=== PATIENT | female | born 1990 | race Caucasian/White ===

== ENCOUNTER → 2022-02-25 | Outpatient (CLI) | payer OTHER, SELFPAY ==
[2022-02-25 17:15] LABS: NATERA MAILED SPECIMEN
[2022-02-25 17:19] LABS: Absolute Lymphocyte Count 2.97 X10^3/uL (0.83-4.51); Absolute Neutrophil Count 6.8 X10^3/uL (2.0-7.7); Basophil# 0.04 X10^3/uL; Basophil% 0.4 % (0-1); Eosinophil# 0.15 X10^3/uL; Eosinophils% 1.4 % (0-5); Hematocrit 36.3 % (37-47); Hemoglobin 12.3 g/dL (12.0-15.0); Lymphocyte # 2.97 X10^3/ul (0.83-4.51); Lymphocyte % 28.2 % (19-41); Mean Corp Hgb Conc 33.9 g/dL (32-36); Mean Corpuscular Hgb 30.3 pg (27.0-32.0); Mean Corpuscular Volume 89.4 fL (81-99); Monocyte# 0.56 X10^3/uL; Monocyte% 5.3 % (0-10); NRBC Flagged by Analyzer 0 % (0-5); Neutrophil # 6.79 X10^3/uL (2.7-7.7); Neutrophil % 64.4 % (47-70); Platelet Count 352 K/mm3 (150-450); RBC Distribution Width CV 12.6 % (11.6-14.6); RBC Distribution Width SD 41.4 fl (35.1-43.9); Red Blood Count 4.06 M/mm3 (4.2-5.4); White Blood Count 10.5 K/mm3 (4.4-11.0)
[2022-02-25 18:41] LABS: HIV - WCH Non-Reactive (Nonreactive); Hepatitis B Surface Antigen Non-Reactive (Nonreactive); Hepatitis C Antibody Non-Reactive (Nonreactive); Rubella IgG Reactive (Nonreactive); Syphilis Antibodies Non-reactive
[2022-03-01 03:06] LABS: Chlamydia By Nucleic Acid AMP Negative (Negative)
[2022-03-01 12:44] LABS: Gonococcus By Nucleic Acid AMP Negative (Negative)
== END | disposition home or self-care (01) ==
PROVIDERS: PCP Student in an Organized Health Care Education/Training Program; Referring Provider Obstetrics & Gynecology; Visit Provider Obstetrics & Gynecology
DX: Z34.82 Encounter for supervision of other normal pregnancy, second trimester (principal)
CPT/HCPCS: 36415; 85025; 86703; 86762; 86780; 86803; 86850; 86900; 86901; 87086; 87088; 87340; 87491; 87591

== ENCOUNTER → 2022-03-18 | Outpatient (CLI) | payer OTHER, SELFPAY ==
[2022-03-18 16:30] LABS: Glucose Challenge Gest 1H 50g 178 mg/dL (70-140)
== END | disposition home or self-care (01) ==
LOC: LAB 15:56
PROVIDERS: PCP Student in an Organized Health Care Education/Training Program; Visit Provider Obstetrics & Gynecology
DX: O99.210 Obesity complicating pregnancy, unspecified trimester (principal)
CPT/HCPCS: 36415; 82950

== ENCOUNTER → 2022-05-21 | Outpatient (CLI) | payer OTHER, SELFPAY ==
[2022-05-21 07:45] LABS: Absolute Lymphocyte Count 2.67 X10^3/uL (0.83-4.51); Absolute Neutrophil Count 5.1 X10^3/uL (2.0-7.7); Basophil# 0.03 X10^3/uL; Basophil% 0.3 % (0-1); Eosinophil# 0.18 X10^3/uL; Eosinophils% 2.1 % (0-5); Hematocrit 35.2 % (37-47); Hemoglobin 11.7 g/dL (12.0-15.0); Lymphocyte # 2.67 X10^3/ul (0.83-4.51); Lymphocyte % 30.9 % (19-41); Mean Corp Hgb Conc 33.2 g/dL (32-36); Mean Corpuscular Hgb 30.6 pg (27.0-32.0); Mean Corpuscular Volume 92.1 fL (81-99); Mean Platelet Vol. 10.4 fl (6.2-12.0); Monocyte% 6.9 % (0-10); NRBC Flagged by Analyzer 0 % (0-5); Neutrophil # 5.12 X10^3/uL (2.7-7.7); Neutrophil % 59.3 % (47-70); Platelet Count 292 K/mm3 (150-450); Red Blood Count 3.82 M/mm3 (4.2-5.4); White Blood Count 8.6 K/mm3 (4.4-11.0)
[2022-05-21 08:06] LABS: Glucose Challenge Gest 1H 50g 148 mg/dL (70-140)
[2022-05-21 11:11] LABS: HIV - WCH Non-Reactive (Nonreactive); Syphilis Antibodies Non-reactive
== END | disposition home or self-care (01) ==
PROVIDERS: PCP Student in an Organized Health Care Education/Training Program; Referring Provider Obstetrics & Gynecology; Visit Provider Obstetrics & Gynecology
DX: O09.90 Supervision of high risk pregnancy, unspecified, unspecified trimester (principal); Z3A.00 Weeks of gestation of pregnancy not specified
CPT/HCPCS: 36415; 82950; 85025; 86703; 86780

== ENCOUNTER → 2022-08-04 | Outpatient (CLI) | payer OTHER, SELFPAY ==
[2022-08-04 11:23] LABS: Protein, Urine (Random) 106.8 mg/dL (<11.9); Protein:Creat Ratio 1695 mg/g CRE (0-200)
[2022-08-04 12:34] LABS: Absolute Lymphocyte Count 2.64 X10^3/uL (0.83-4.51); Absolute Neutrophil Count 6.8 X10^3/uL (2.0-7.7); Basophil# 0.03 X10^3/uL; Basophil% 0.3 % (0-1); Eosinophil# 0.15 X10^3/uL; Eosinophils% 1.4 % (0-5); Hematocrit 33.8 % (37-47); Hemoglobin 11.1 g/dL (12.0-15.0); Lymphocyte # 2.64 X10^3/ul (0.83-4.51); Lymphocyte % 25.2 % (19-41); Mean Corp Hgb Conc 32.8 g/dL (32-36); Mean Corpuscular Hgb 29.2 pg (27.0-32.0); Mean Corpuscular Volume 88.9 fL (81-99); Mean Platelet Vol. 11.1 fl (6.2-12.0); Monocyte# 0.78 X10^3/uL; Monocyte% 7.4 % (0-10); NRBC Flagged by Analyzer 0 % (0-5); Neutrophil # 6.77 X10^3/uL (2.7-7.7); Neutrophil % 64.6 % (47-70); Platelet Count 298 K/mm3 (150-450); RBC Distribution Width CV 12.9 % (11.6-14.6); RBC Distribution Width SD 41.5 fl (35.1-43.9); White Blood Count 10.5 K/mm3 (4.4-11.0)
[2022-08-04 13:13] LABS: ALB/GLOB Ratio 0.5 RATIO (0.9-2.4); AST(SGOT) 20 U/L (15-37); Alanine Aminotransfer ALT/SGPT 16 U/L (13-56); Albumin, Serum 2.2 g/dL (3.2-5.0); Alkaline Phosphatase 201 U/L (45-117); Anion Gap 8 (5-15); BUN 5 mg/dL (7-18); BUN/Creat Ratio 10.9 RATIO (10-20); Chloride 110 mmol/L (98-107); Creatinine, Serum 0.46 mg/dL (0.55-1.02); EST Glomerular Filtration Rate 169 mL/min (>60); Est Glom Filt Rate - Afr Amer 204 mL/min (>60); Globulin 4.3 g/dL (2.2-4.2); Glucose 76 mg/dL (74-106); Potassium 3.7 mmol/L (3.5-5.1); Protein, Total 6.5 g/dL (6.4-8.2); Sodium Level 138 mmol/L (136-145)
== END | disposition home or self-care (01) ==
LOC: LABSPEC 11:05 → LAB 11:38
PROVIDERS: PCP Student in an Organized Health Care Education/Training Program; Referring Provider Obstetrics & Gynecology; Visit Provider Obstetrics & Gynecology
DX: O12.10 Gestational proteinuria, unspecified trimester (principal); Z3A.00 Weeks of gestation of pregnancy not specified
CPT/HCPCS: 36415; 80053; 82570; 84156; 85025

== ENCOUNTER 2022-08-06 12:10 | Outpatient (CLI) | payer OTHER, SELFPAY ==
[2022-08-06] VITALS (11 sets, daily range): BP systolic 134–158; BP diastolic 77–94; PULSE 76–96; TEMP 36.7; O2SAT 100
[2022-08-06] MEDS: Betamethasone/Betamethasone 30 MG/5 ML Vial 12 MG IM (13:43)
[2022-08-06] MEDS: Acetaminophen 500 MG Tablet 1000 MG PO (13:43)
[2022-08-06 13:48] LABS: Hematocrit 32.9 % (37-47); Hemoglobin 10.7 g/dL (12.0-15.0); Mean Corp Hgb Conc 32.5 g/dL (32-36); Mean Corpuscular Hgb 28.6 pg (27.0-32.0); Mean Platelet Vol. 11.1 fl (6.2-12.0); Platelet Count 303 K/mm3 (150-450); RBC Distribution Width CV 12.8 % (11.6-14.6); RBC Distribution Width SD 40.8 fl (35.1-43.9); Red Blood Count 3.74 M/mm3 (4.2-5.4); White Blood Count 9.9 K/mm3 (4.4-11.0)
[2022-08-06 14:04] LABS: AST(SGOT) 18 U/L (15-37); Alanine Aminotransfer ALT/SGPT 15 U/L (13-56); Creatinine, Serum 0.42 mg/dL (0.55-1.02); EST Glomerular Filtration Rate 186 mL/min (>60); Est Glom Filt Rate - Afr Amer 225 mL/min (>60); Protein, Urine (Random) 18.8 mg/dL (<11.9); Protein:Creat Ratio 1353 mg/g CRE (0-200); Uric Acid 5.4 mg/dL (2.6-6.0)
--- NOTE | 2022-08-06 15:19 | OB.TRI.HP_ITS ---
HPI - General HPI Narrative CHRISTA GARCIA, is a 31 y/o @ 35 weeks 4 days who presents to L&D with the complaint of a mild headache (2/10) and bp at home of 154/115. She has known diagnosis of mild pre-eclampsia. She denies abdominal pain or change in vision. her bp's here are averaging 140's/80's and since resting here for an hour states that headache is gone. Maternal Data Information REAL Calculator Estimated Delivery Date Method Current WG Current Estimate 09/06/22 Ultrasound #1 35w 4d Other Estimates 09/15/22 LMP (Certain) 34w 2d PFSH PFSH Medical History Abscess of left thigh Home Medications escitalopram oxalate 10 mg tablet (Lexapro) 10 mg PO DAILY 02/11/22 [History Last Taken Unknown] omeprazole 20 mg capsule,delayed release 20 mg PO DAILY 02/11/22 [History Last Taken Unknown] vitamins no.163-iron bis-gly 20 mg-folate no.10 1 mg tablet (PNV Tabs 20-1) tab PO 02/11/22 [History Last Taken Unknown] amoxicillin 500 mg capsule 500 mg PO BID #14 caps 07/14/22 [Rx Last Taken Unknown] fluticasone propionate 50 mcg/actuation nasal spray,suspension (Flonase Allergy Relief) 2 spray intranasal DAILY #16 grams 07/14/22 [Rx Last Taken Unknown] Allergy/AdvReac Type Severity Reaction Status Date / Time No Known Allergies Allergy Verified 08/04/22 10:36 Family History Mother Breast cancer, Onset Age: 61 Not genetic Grandmother Breast cancer, Onset Age: 65 Maternal Surgical History History of removal of cyst Hx of wisdom tooth extraction Social History adopted: No household members: spouse and children housing: house number of children: 1 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 occupational exposures/hazards: No pets and animals: Yes (Not managing litterbox) pets and animals: cat(s) history of recent travel: No sexually active: Yes Smoking Status: Never smoker alcohol intake: former details: socially prior to substance use type: does not use well-balanced diet: daily or most days caffeine: No eating out: 1-3 times/week during the past year weight has: decreased > 10 lbs what type of physical activity do you participate in: none juan/roman catholic: Non-Anabaptist/Independent seatbelt use: always do you feel safe at home: Yes additional social history: - Lyle Marie History 2 Elective abortions Hx Para 1 Spontaneous abortions Hx # Term Pregnancies Ectopic pregnancies Hx # Pregnancies Multiple births # of living children 1 Past Pregnancies Del. Date Name GA/Weeks Outcome Route Bth Weight Gen Labor Lgth Anesthesia Del Locatn Provider FOB 03/25/20 Leticia 39 live - full term 7#4oz Female 18 hours epidural [facility] Delivery Date: 03/25/20 Last Updated by: Pina Green emergency cs, decels Visit Details Expected Delivery Route/Plan patient counseled regarding risks/benefits of trial of labor versus repeat . ACOG/uptodate education given to patient. 42 % likelihood of success per calculator TOLAC consent form signed: [] pt still deciding based on low percentile. may want repeat cd Plans Covid status: [] Flu vaccine: [] Tdap vaccine: [] Rhogam: [] LARC form signed: [] Problem list reviewed and updated with the most current plan of care details and appropriate orders placed. Relevant counseling for the gestational age provided. Continue routine care and follow up unless otherwise noted in visit notes/problem list details OB Flowsheet Initial Weight: Not Recorded Date -?-?-?-?-?-?-?-?-?-?-?-?- EGA Weight BP Urine Prot -?-?-?-?-?-?-?-?-?-?-?-?- Glucose FHR FuHt Pres Dilation -?-?-?-?-?-?-?-?-?-?-?-?- Effaced St Visit Note 02/25/22 -?-?-?-?-?-?-?-?-?-?-?-?- 12w 3d 242 lb 8 oz 134/88 -?-?-?-?-?-?-?-?-?-?-?-?- 163 -?-?-?-?-?-?-?-?-?-?-?-?- JV- single live iup measuring 12 weeks 3 days. new real of 09/06/22 given. 03/26/22 -?-?-?-?-?-?-?-?-?-?-?-?- 16w 4d 244 lb 8 oz 135/81 Nega tive -?-?-?-?-?-?-?-?-?-?-?-?- Negative 155 -?-?-?-?--?-?-?-?-?-?-?-?- JV- JV- pt is worried about david ng the 3 hr gtt and knows that she is insulin resistance due to metabolic syndrome. she sees her endo on Tuesday. her GCT was 178 and close to overt dm. plan to start monitoring glucose levels and cancel the GTT. umbilical hernia is bothering her. She drives from [place] to see us. 04/22/22 -?-?-?-?-?-?-?-?-?-?-?-?- 20w 3d 243 lb 2 oz 118/74 Nega tive -?-?-?-?-?-?-?-?-?-?-?-?- Negative 145 -?-?-?-?-?-?-?-?-?-?-?-?- SM- no vb crampi ng reviewed bs all WNL with no change in diet, not following any low carbs. doens't appear to have diabetes. stopping testing. 05/17/22 -?-?-?-?-?-?-?-?-?-?-?-?- 24w 0d 239 lb 2 oz 125/82 Nega tive -?-?-?-?-?-?-?-?-?-?-?-?- Negative 140 -?-?-?-?-?-?-?-?-?-?-?-?- SM- scheduled re peat cs will do 3 hour gtt 06/16/22 -?-?-?-?-?-?-?-?-?-?-?-?- 28w 2d 246 lb 106/71 Negative -?-?-?-?-?-?-?-?-?-?-?-?- Negative 135 29 -?-?-?-?-?-?-?-?-?-?-?-?- JV- normal GTT ( done at [facility]), VSD resolved! TDAP today 06/28/22 -?-?-?-?-?-?-?-?-?-?-?-?- 30w 0d 249 lb 118/81 Negative -?-?-?-?-?-?-?-?-?-?-?-?- Negative 140 30 -?-?-?-?-?--?-?-?-?-?-?-?- SM- no vb lof go od fm no regular ctx 07/14/22 -?-?-?-?-?-?-?-?-?-?-?-?- 32w 2d 255 lb 2 oz 126/79 Nega tive -?-?-?-?-?-?-?-?-?-?-?-?- Negative 150 33 -?-?-?-?-?-?-?-?-?-?-?-?- JV- pt complains of nasal pressure and pain with lots of drainage and green mucous. JV- pt complains of nasal pr essure and pain with lots of drainage and green mucous. sending in amoxil and flonase. encourage saline nasal wash. start NSTs next visit for obesity bmi over 40 08/04/22 -?-?-?-?-?-?-?-?-?-?-?-?- 35w 2d 140/94 2+ -?-?-?-?-?-?-?-?-?-?-?-?- Negative 150 36 Cephalic 0 .5 -?-?-?-?-?-?-?-?-?-?-?-?- -3 JV- pres sure up today with 2+ protein. rpt was 130/90. pt states that she was stressed because late for visit and did not eat or drink today. sending PIH labs including pr:cr. NST reactive, JANES is 13. bring back 2 times next week for close follow up and will call with labs ROS Constitutional Constitutional: Reports systems reviewed and no addt'l complaints, except as documented Gastrointestinal Gastrointestinal: Denies bloating, constipation, cramping, diarrhea, nausea or vomiting Genitourinary Genitourinary: Reports other Details: Denies vaginal odor, vaginal bleeding, or vaginal discharge ; Denies difficulty urinating or flank pain Physical Exam HEENT normocephalic Resp normal respiratory effort and normal air movement no CVA tenderness Extremity normal to inspection General Extremity: edema bilateral (trace ) NST FHR Rate Baby A Baseline: 140 Variability:: Moderate Accelerations:: 15 x 15 Decelerations:: None NST Reactive:: Yes FHR Category:: Category I Assessment & Plan (1) Pre-eclampsia: COMMENT: prot:cr 1600, mild pressure elevations. janes 13 on 08/04 with reactive nst. plan twice weekly testing and plan delivery at 37 weeks PLAN: rpt blood work and urine pt:cr is improved slightly from yesterday bp stable and headache gone. continue home bedrest and deliver at 37 weeks or sooner for severe features . (2) History of : COMMENT: decels- was induced and taken for emergency prior to 5 cm dilated. wants to - chance of success is 42.2% RLTCSBS scheduled 08/30 @ 12 with SM (3) Abnormal glucose affecting : COMMENT: 05/28 3HR GTT nl done at [facility] (4) Depression: COMMENT: lexapro counseling (5) Anxiety: COMMENT: avtarapro (6) Supervision of high risk , antepartum: COMMENT: PRR , REAL 09/06/22, boy, PC Leticia Brett Charges/Coding Multi Select Codes Visit Charges Office Visit/Consults: 27657 OV L3 Est Urinary/Genital Urinary/Genital CPT Codes: 91180-61 non-stress test Interp
== END 2022-08-06 15:10 | disposition home or self-care (01) ==
LOC: WPOUT 12:18 → WP 12:19
PROVIDERS: PCP Student in an Organized Health Care Education/Training Program; Referring Provider Obstetrics & Gynecology; Visit Provider Obstetrics & Gynecology
DX: O99.891 Other specified diseases and conditions complicating pregnancy (principal); Z3A.35 35 weeks gestation of pregnancy; R51.9 Headache, unspecified; O14.03 Mild to moderate pre-eclampsia, third trimester; O99.810 Abnormal glucose complicating pregnancy; O99.343 Other mental disorders complicating pregnancy, third trimester; F32.A Depression, unspecified; F41.9 Anxiety disorder, unspecified
CPT/HCPCS: 36415; 59025; 59050; 82565; 82570; 84156; 84450; 84460; 84550; 85027; 96372; J0702

== ENCOUNTER 2022-08-07 11:32 | Outpatient (CLI) | payer OTHER, SELFPAY ==
[2022-08-07 11:39] VITALS: BMI 45.3
[2022-08-07] MEDS: Betamethasone/Betamethasone 30 MG/5 ML Vial 12 MG IM (11:58)
--- NOTE | 2022-08-08 07:41 | PN.OBGYN_ITS ---
Subjective Subjective pt is here today for celestone injection only. She has no complaints Objective Data Objective Data Vital Signs: Weight: 256 lb Body Mass Index (BMI) 45.3 Assessment & Plan (1) Pre-eclampsia: COMMENT: prot:cr 1600, mild pressure elevations. vikas 13 on 08/04 with reactive nst. plan twice weekly testing and plan delivery at 37 weeks (2) Hypertension affecting : (3) Uterine fibroids affecting : COMMENT: 2 fibroids-Anterior right- [id number] & [id number] (4) Obesity affecting : COMMENT: NST weekly starting at 34 weeks (5) Abnormal glucose affecting : COMMENT: 05/28 3HR GTT nl done at [facility] (6) History of : COMMENT: decels- was induced and taken for emergency prior to 5 cm dilated. wants to - chance of success is 42.2% RLTCSBS scheduled 08/30 @ 12 with SM (7) Depression: COMMENT: lexapro counseling (8) Anxiety: COMMENT: lexapro (9) Supervision of high risk , antepartum: COMMENT: PRR , REAL 09/06/22, boy, PC Leticia Brett (10) : QUALIFIERS: Weeks of gestation: 35 weeks Qualified Code(s): Z3A.35 - 35 weeks gestation of COMMENT: NIPT low risk, discussed carrier testing, anatomy nl, nl growth.
== END 2022-08-07 12:02 | disposition home or self-care (01) ==
LOC: WPOUT 11:38 → WP 11:39
PROVIDERS: PCP Student in an Organized Health Care Education/Training Program; Visit Provider Obstetrics & Gynecology
DX: O11.3 Pre-existing hypertension with pre-eclampsia, third trimester (principal); Z3A.34 34 weeks gestation of pregnancy; O34.13 Maternal care for benign tumor of corpus uteri, third trimester; D25.9 Leiomyoma of uterus, unspecified; O99.213 Obesity complicating pregnancy, third trimester; O99.810 Abnormal glucose complicating pregnancy; O99.343 Other mental disorders complicating pregnancy, third trimester; F32.A Depression, unspecified; F41.9 Anxiety disorder, unspecified
CPT/HCPCS: 96372; 99221; G0378; J0702

== ENCOUNTER 2022-08-09 09:05 | Outpatient (CLI) | payer OTHER, SELFPAY ==
[2022-08-09] VITALS (21 sets, daily range): BP systolic 136–161; BP diastolic 88–112; PULSE 75–91; TEMP 36.6; O2SAT 83–98; BMI 46.3
[2022-08-09 09:47] LABS: Hematocrit 31.4 % (37-47); Hemoglobin 10.2 g/dL (12.0-15.0); Mean Corp Hgb Conc 32.5 g/dL (32-36); Mean Corpuscular Hgb 28.6 pg (27.0-32.0); Mean Platelet Vol. 11.3 fl (6.2-12.0); Platelet Count 319 K/mm3 (150-450); RBC Distribution Width CV 12.9 % (11.6-14.6); RBC Distribution Width SD 41.3 fl (35.1-43.9); Red Blood Count 3.57 M/mm3 (4.2-5.4); White Blood Count 10.6 K/mm3 (4.4-11.0)
[2022-08-09 09:57] LABS: AST(SGOT) 13 U/L (15-37); Alanine Aminotransfer ALT/SGPT 12 U/L (13-56); Creatinine, Serum 0.41 mg/dL (0.55-1.02); EST Glomerular Filtration Rate 192 mL/min (>60); Est Glom Filt Rate - Afr Amer 232 mL/min (>60); Estimated Creatinine Clearance 165.97 ml/min; Uric Acid 5.2 mg/dL (2.6-6.0)
[2022-08-09 10:13] LABS: Protein, Urine (Random) 142.7 mg/dL (<11.9); Protein:Creat Ratio 2793 mg/g CRE (0-200)
--- NOTE | 2022-08-10 17:51 | OB.TRI.HP_ITS ---
HPI - General HPI Narrative CHRISTA GARCIA, is a 31 F who presents with elevated bps and initially a headache, upon taking it resolved. Patient denies any vaginal bleeding or loss of fluid admits good movement. Patient has been evaluated for preeclampsia and blood pressures have been in the normal to mildly elevated range. She had 1 severely elevated blood pressures and all the rest have been 140s to 150s over 80s to 90s. Maternal Data Information REAL Calculator Estimated Delivery Date Method Current WG Current Estimate 09/06/22 Ultrasound #1 36w 1d Other Estimates 09/15/22 LMP (Certain) 34w 6d PFSH [facility] Medical History (Updated 08/10/22 @ 17:[address] Michelle Rodríguez MD) Abscess of left thigh Home Medications escitalopram oxalate 10 mg tablet (Lexapro) 10 mg PO DAILY anxiety 02/11/22 [History Last Taken Unknown] omeprazole 20 mg capsule,delayed release 20 mg PO DAILY heartburn 02/11/22 [History Last Taken Unknown] vitamins no.163-iron bis-gly 20 mg-folate no.10 1 mg tablet (PNV Tabs 20-1) 1 tab PO DAILY 02/11/22 [History Last Taken Unknown] fluticasone propionate 50 mcg/actuation nasal spray,suspension (Flonase Allergy Relief) 2 spray intranasal DAILY sinus 08/09/22 [History Last Taken Unknown] metformin 500 mg PO.IVFORM BID insulin resistance 08/09/22 [History Last Taken Unknown] Allergy/AdvReac Type Severity Reaction Status Date / Time No Known Allergies Allergy Verified 08/09/22 08:33 Family History Mother Breast cancer, Onset Age: 61 Not genetic Grandmother Breast cancer, Onset Age: 65 Maternal Surgical History (Updated 08/09/22 @ 09:41 by Dionna Blanco) History of removal of cyst Hx of wisdom tooth extraction Previous section Social History adopted: No household members: spouse and children housing: house number of children: 1 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 occupational exposures/hazards: No pets and animals: Yes (Not managing litterbox) pets and animals: cat(s) history of recent travel: No sexually active: Yes Smoking Status: Never smoker alcohol intake: former details: socially prior to substance use type: does not use well-balanced diet: daily or most days caffeine: No eating out: 1-3 times/week during the past year weight has: decreased > 10 lbs what type of physical activity do you participate in: none juan/baptism: Non-Orthodoxy/Independent seatbelt use: always do you feel safe at home: Yes additional social history: - Lyle Marie History 2 Elective abortions Hx Para 1 Spontaneous abortions Hx # Term Pregnancies Ectopic pregnancies Hx # Pregnancies Multiple births # of living children 1 Past Pregnancies Del. Date Name GA/Weeks Outcome Route Bth Weight Infant Gen Labor Lgth Anesthesia Del Locatn Provider FOB 03/25/20 Leticia 39 live - full term 7#4oz Female 18 hours epidural [facility] Delivery Date: 03/25/20 Last Updated by: Pina Green emergency cs, decels Visit Details Expected Delivery Route/Plan patient counseled regarding risks/benefits of trial of labor versus repeat . ACOG/uptodate education given to patient. 42 % likelihood of success per calculator TOLAC consent form signed: [] pt still deciding based on low percentile. may want repeat cd Plans Covid status: [] Flu vaccine: [] Tdap vaccine: [] Rhogam: [] LARC form signed: [] Problem list reviewed and updated with the most current plan of care details and appropriate orders placed. Relevant counseling for the gestational age provided. Continue routine care and follow up unless otherwise noted in visit notes/problem list details OB Flowsheet Initial Weight: Not Recorded Date -?-?-?-?-?-?-?-?-?-?-?-?- EGA Weight BP Urine Prot -?-?-?-?-?-?-?-?-?-?-?-?- Glucose FHR FuHt Pres Dilation -?-?-?-?-?-?-?-?-?-?-?-?- Effaced St Visit Note 02/25/22 -?-?-?-?-?-?-?-?-?-?-?-?- 12w 3d 242 lb 8 oz 134/88 -?-?-?-?-?-?-?-?-?-?-?-?- 163 -?-?-?-?-?-?-?-?-?-?-?-?- JV- single live iup measuring 12 weeks 3 days. new real of 09/06/22 given. 03/26/22 -?-?-?-?-?-?-?-?-?-?-?-?- 16w 4d 244 lb 8 oz 135/81 Nega tive -?-?-?-?-?-?-?-?-?-?-?-?- Negative 155 -?-?-?-?-?-?-?-?-?-?-?-?- JV- JV- pt is worried about david ng the 3 hr gtt and knows that she is insulin resistance due to metabolic syndrome. she sees her endo on Tuesday. her GCT was 178 and close to overt dm. plan to start monitoring glucose levels and cancel the GTT. umbilical hernia is bothering her. She drives from [place] to see us. 04/22/22 -?-?-?-?-?-?-?-?-?-?-?-?- 20w 3d 243 lb 2 oz 118/74 Nega tive -?-?-?-?-?-?-?-?-?-?-?-?- Negative 145 -?-?-?-?-?-?-?-?-?-?-?-?- SM- no vb crampi ng reviewed bs all WNL with no change in diet, not following any low carbs. doens't appear to have diabetes. stopping testing. 05/17/22 -?-?-?-?-?-?-?-?-?-?-?-?- 24w 0d 239 lb 2 oz 125/82 Nega tive -?-?-?-?-?-?-?-?-?-?-?-?- Negative 140 -?-?-?-?-?-?-?-?-?-?-?-?- SM- scheduled re peat cs will do 3 hour gtt 06/16/22 -?-?-?-?-?-?-?-?-?-?-?-?- 28w 2d 246 lb 106/71 Negative -?-?-?-?-?-?-?-?-?-?-?-?- Negative 135 29 -?-?-?-?-?-?-?-?-?-?-?-?- JV- normal GTT ( done at [facility]), VSD resolved! TDAP today 06/28/22 -?-?-?-?-?-?-?-?-?-?-?-?- 30w 0d 249 lb 118/81 Negative -?-?-?-?-?-?-?-?-?-?-?-?- Negative 140 30 -?-?-?-?-?-?-?-?-?-?-?-?- SM- no vb lof go od fm no regular ctx 07/14/22 -?-?-?-?-?-?-?-?-?-?-?-?- 32w 2d 255 lb 2 oz 126/79 Nega tive -?-?-?-?-?-?-?-?-?-?-?-?- Negative 150 33 -?-?-?-?-?-?-?-?-?-?-?-?- JV- pt complains of nasal pressure and pain with lots of drainage and green mucous. JV- pt complains of nasal pr essure and pain with lots of drainage and green mu cous. sending in amoxil and flonase. encourage saline nasal wash. start NSTs next visit for obesity bmi over 40 08/04/22 -?-?-?-?-?-?-?-?-?-?-?-?- 35w 2d 140/94 2+ -?-?-?-?-?-?-?-?-?-?-?-?- Negative 150 36 Cephalic 0 .5 -?-?-?-?-?-?-?-?-?-?-?-?- -3 JV- pres sure up today with 2+ protein. rpt was 130/90. pt states that she wa s stressed because late for visit and did not eat or drink today. sending PIH labs including pr:cr. NST reactive, JANES is 13. bring back 2 times next week for close follow up and will call with labs 08/09/22 -?-?-?-?-?-?-?-?-?-?-?-?- 36w 0d 262 lb 6 oz 153/97 154/103 2+ -?-?-?-?-?-?-?-?-?-?-?-?- Negative 130 -?-?-?-?-?-?-?-?-?-?-?-?- KW-NST today. BP elevated. SCHAEFER upon awakening. to for evaluation. had Celestone over the weekend. SM aware and agrees with plan. 08/09/22 -?-?-?-?-?-?-?-?-?-?-?-?- 36w 0d 261 lb 6 oz 158/104 157/105 161/112 151/103 150/102 158/98 148/93 151/94 142/88 136/96 146/92 148/94 145/93 146/94 -?-?-?-?-?-?-?-?-?-?-?-?- -?-?-?-?-?-?-?-?-?-?-?-?- Physical Exam Const alert, oriented x3 and no apparent distress HEENT Head and Scalp: normocephalic and atraumatic Eyes EOMs intact bilaterally Neck full ROM and no lymphadenopathy Chest inspection of chest normal Resp normal respiratory effort GI GI Narrative: gravid, abdomen nontender, AGA Neuro no focal motor deficits Motor Exam: clonus absent NST FHR Rate Baby A Baseline: 140 Variability:: Moderate Accelerations:: 15 x 15 Decelerations:: None NST Reactive:: Yes FHR Category:: Category I Uterine Activity:: no regular Assessment & Plan (1) : QUALIFIERS: Weeks of gestation: 35 weeks Qualified Code(s): Z3A.35 - 35 weeks gestation of COMMENT: NIPT low risk, discussed carrier testing, anatomy nl, nl growth. (2) Supervision of high risk , antepartum: COMMENT: PRR , REAL 09/06/22, boy, PC Leticia Brett (3) Anxiety: COMMENT: lexapro (4) Depression: COMMENT: lexapro counseling (5) History of : COMMENT: decels- was induced and taken for emergency prior to 5 cm dilated. wants to - chance of success is 42.2% RLTCSBS scheduled 08/30 @ 12 with SM (6) Abnormal glucose affecting : COMMENT: 05/28 3HR GTT nl done at [facility] (7) Obesity affecting : COMMENT: NST weekly starting at 34 weeks (8) Uterine fibroids affecting : COMMENT: 2 fibroids-Anterior right- [id number] & [id number] (9) Hypertension affecting : (10) Pre-eclampsia: COMMENT: increased to 2600, mild pressure elevations. janes 13 on 08/04 with reactive nst. plan twice weekly testing and plan delivery at 37 weeks (11) Sterilization: COMMENT: plan BS at [facility] PLAN: Plan Repeat labs show increasing proteinuria but otherwise normal liver enzymes and platelets. Blood pressures trending down over time and headache resolved with Tylenol. No clonus. Reviewed instructions for repeat evaluation or delivery would be signs of severe preeclampsia which patient does not meet criteria at this time. Recommend delivery at 37 weeks. Delivery scheduled at 37 for repeat low-transverse and bilateral salpingectomy. Charges/Coding Procedures Urinary/Genital 52xxx-59xxx: 30491-06 non-stress test Interp Multi Select Codes Visit Charges Office Visit/Consults: 94263 OV L3 Est
== END 2022-08-09 13:02 | disposition home or self-care (01) ==
LOC: WPOUT 09:11 → WP 09:13
PROVIDERS: PCP Student in an Organized Health Care Education/Training Program; Referring Provider Advanced Practice Midwife; Visit Provider Advanced Practice Midwife
DX: O11.3 Pre-existing hypertension with pre-eclampsia, third trimester (principal); Z3A.35 35 weeks gestation of pregnancy; O34.13 Maternal care for benign tumor of corpus uteri, third trimester; D25.9 Leiomyoma of uterus, unspecified; O99.343 Other mental disorders complicating pregnancy, third trimester; F32.A Depression, unspecified; F41.9 Anxiety disorder, unspecified; O99.891 Other specified diseases and conditions complicating pregnancy
CPT/HCPCS: 36415; 59025; 59050; 82565; 82570; 84156; 84450; 84460; 84550; 85027; 86850; 86900; 86901; 99221; G0378

== ENCOUNTER → 2022-08-13 | Outpatient (CLI) | payer OTHER, SELFPAY ==
[2022-08-13 11:15] LABS: Absolute Lymphocyte Count 3.11 X10^3/uL (0.83-4.51); Absolute Neutrophil Count 6.6 X10^3/uL (2.0-7.7); Basophil# 0.05 X10^3/uL; Basophil% 0.5 % (0-1); Eosinophil# 0.12 X10^3/uL; Eosinophils% 1.1 % (0-5); Hematocrit 33.2 % (37-47); Hemoglobin 10.7 g/dL (12.0-15.0); Lymphocyte # 3.11 X10^3/ul (0.83-4.51); Mean Corp Hgb Conc 32.2 g/dL (32-36); Mean Corpuscular Hgb 28.2 pg (27.0-32.0); Mean Corpuscular Volume 87.6 fL (81-99); Monocyte# 0.75 X10^3/uL; NRBC Flagged by Analyzer 0 % (0-5); Neutrophil # 6.61 X10^3/uL (2.7-7.7); Neutrophil % 61.7 % (47-70); Platelet Count 325 K/mm3 (150-450); RBC Distribution Width CV 13.2 % (11.6-14.6); RBC Distribution Width SD 41.6 fl (35.1-43.9); Red Blood Count 3.79 M/mm3 (4.2-5.4); White Blood Count 10.7 K/mm3 (4.4-11.0)
[2022-08-13 11:37] LABS: ALB/GLOB Ratio 0.5 RATIO (0.9-2.4); AST(SGOT) 15 U/L (15-37); Alanine Aminotransfer ALT/SGPT 14 U/L (13-56); Alkaline Phosphatase 199 U/L (45-117); Anion Gap 4 (5-15); BUN 6 mg/dL (7-18); BUN/Creat Ratio 13.4 RATIO (10-20); Chloride 109 mmol/L (98-107); Creatinine, Serum 0.45 mg/dL (0.55-1.02); EST Glomerular Filtration Rate 174 mL/min (>60); Est Glom Filt Rate - Afr Amer 211 mL/min (>60); Globulin 4.2 g/dL (2.2-4.2); Glucose 82 mg/dL (74-106); Potassium 3.7 mmol/L (3.5-5.1); Protein, Total 6.2 g/dL (6.4-8.2); Sodium Level 138 mmol/L (136-145)
[2022-08-13 13:42] LABS: Protein, Urine (Random) 96.2 mg/dL (<11.9); Protein:Creat Ratio 4603 mg/g CRE (0-200)
== END | disposition home or self-care (01) ==
PROVIDERS: PCP Student in an Organized Health Care Education/Training Program; Referring Provider Obstetrics & Gynecology; Visit Provider Obstetrics & Gynecology
DX: O12.10 Gestational proteinuria, unspecified trimester (principal); Z3A.00 Weeks of gestation of pregnancy not specified
CPT/HCPCS: 36415; 80053; 82570; 84156; 85025; 87081

== ENCOUNTER 2022-08-16 05:12 | Inpatient (IN) | payer OTHER, SELFPAY ==
[2022-08-16] VITALS (37 sets, daily range): BP systolic 118–163; BP diastolic 73–111; PULSE 85–109; RESP 12–27; TEMP 36.4–37.2; O2SAT 93–100; BMI 46.5
[2022-08-16] MEDS: Lactated Ringers 1,000 ML 999 ML IV (05:55)
[2022-08-16 06:19] LABS: Absolute Lymphocyte Count 3.11 X10^3/uL (0.83-4.51); Absolute Neutrophil Count 7.1 X10^3/uL (2.0-7.7); Basophil# 0.04 X10^3/uL; Basophil% 0.4 % (0-1); Eosinophil# 0.13 X10^3/uL; Eosinophils% 1.1 % (0-5); Hematocrit 31.8 % (37-47); Hemoglobin 10.3 g/dL (12.0-15.0); Lymphocyte # 3.11 X10^3/ul (0.83-4.51); Lymphocyte % 27.5 % (19-41); Mean Corp Hgb Conc 32.4 g/dL (32-36); Mean Corpuscular Hgb 28.5 pg (27.0-32.0); Mean Corpuscular Volume 88.1 fL (81-99); Mean Platelet Vol. 11.3 fl (6.2-12.0); Monocyte# 0.85 X10^3/uL; Monocyte% 7.5 % (0-10); NRBC Flagged by Analyzer 0 % (0-5); Neutrophil # 7.12 X10^3/uL (2.7-7.7); Neutrophil % 62.9 % (47-70); Platelet Count 305 K/mm3 (150-450); RBC Distribution Width CV 13.2 % (11.6-14.6); RBC Distribution Width SD 41.4 fl (35.1-43.9); Red Blood Count 3.61 M/mm3 (4.2-5.4); White Blood Count 11.3 K/mm3 (4.4-11.0)
[2022-08-16] MEDS: Acetaminophen 500 MG Tablet 1000 MG PO ×2 (06:33→12:35)
[2022-08-16] MEDS: Lactated Ringers 1,000 ML 150 ML IV (07:00)
[2022-08-16] MEDS: Sodium Citrate/Citric Acid 30 ML UDC PO (07:01)
[2022-08-16 07:03] LABS: ALB/GLOB Ratio 0.5 RATIO (0.9-2.4); AST(SGOT) 15 U/L (15-37); Alanine Aminotransfer ALT/SGPT 11 U/L (13-56); Albumin, Serum 1.7 g/dL (3.2-5.0); Alkaline Phosphatase 181 U/L (45-117); Anion Gap 7 (5-15); BUN 5 mg/dL (7-18); BUN/Creat Ratio 10.5 RATIO (10-20); Calcium,Total 8.4 mg/dL (8.5-10.1); Chloride 110 mmol/L (98-107); Creatinine, Serum 0.48 mg/dL (0.55-1.02); EST Glomerular Filtration Rate 162 mL/min (>60); Est Glom Filt Rate - Afr Amer 196 mL/min (>60); Estimated Creatinine Clearance 141.77 ml/min; Globulin 3.7 g/dL (2.2-4.2); Glucose 101 mg/dL (74-106); Potassium 3.4 mmol/L (3.5-5.1); Protein, Total 5.4 g/dL (6.4-8.2); Sodium Level 138 mmol/L (136-145)
[2022-08-16] MEDS: Cefazolin 2 GM in 0.9% Normal Saline 100 ML IV (07:10)
--- NOTE | 2022-08-16 07:46 | FALS_PTH ---
PATIENT: CHRISTA GARCIA LOC: [facility] U#:[id number] AGE/SX: 31/F ROOM: WP007 RE08/16/[address]: Dr. Michelle Rodríguez MD : 1990 BED: 1 DIS: 08/19/2022 SPEC #: [id number] RECD: 08/16/22 11:41 STATUS: DANYEL GLEASON #: [id number] PETTY: 08/16/22 07:[address]: Michelle Rodríguez DEPT: SURGICAL PATHOLOGY RECD BY: Jeane Fairbanks ENTERED: 08/16/22 11:41 SP TYPE: FALL TUBES OTHR DR: Dr. Luda Villa, DO Tissues: Fallopian tube Procedures: Surgery Specimen Level II Surgery Specimen Level IV HEADER OPERATION: Tubal ligation PRE-OP DIAGNOSIS: Sterilization TISSUE SUBMITTED: Fallopian tubes MICROSCOPIC DIAGNOSIS Right fallopian tube, salpingectomy: Benign paratubal cyst. Left fallopian tube, salpingectomy: No pathologic change. AM:myles 08/17/2022 MICROSCOPIC DESCRIPTION Slides are reviewed. GROSS DESCRIPTION Received in fixative is one container labeled with the patient's name and designated bilateral fallopian tubes, right suture. The specimen consists of bilateral fallopian tubes including fimbrial ends. The right fallopian tube measures 7.0 cm in length and 1.0 cm in diameter and the left fallopian tube measures 7.0 cm in length and 0.8 cm in diameter. The right fallopian tube also shows a paratubal cyst measuring 1.8 cm in greatest dimension and filled with clear fluid. Sections reveal unremarkable cut surfaces. Sustainable Systems Analyst sections are submitted in two cassettes as follows: 1 - right fallopian tube and paratubal cyst, 2 - left fallopian tube. / SJ:myles 08/16/2022 TC:5 CPT: 75852, 41400
[2022-08-16 08:01] LABS: Syphilis Antibodies Non-reactive
[2022-08-16] MEDS: Oxytocin 15 Units/NS 250ml 15 UNITS/250 ML IV.SOLN 83 UNITS IV (10:06)
[2022-08-16 10:10] LABS: Pathology Specimen OB SEE PATHOLOGY REPORT
[2022-08-16] MEDS: Ketorolac 30 MG/ML Syringe IV ×3 (10:13→21:08)
[2022-08-16] MEDS: Senna/Docusate Sodium 1 Tablet PO (11:09)
[2022-08-16] MEDS: 0.9% Saline Lock 10 ML Syringe IV ×2 (12:36→15:23)
--- NOTE | 2022-08-16 14:14 | CASEMGMT ---
Social Work Assessment Labor and Delivery Unit Patient Address: [place] [address] Phone number: [phone] Date of Referral: 08/16/22 Time of Referral: 08 Referred By: Referral given by verbal notification by nursing staff. Date of Intervention: 08/16/22 Time of Intervention: 1245 Reason for Referral:anxiety and depression History obtained from: medical records and mother of baby (MOB), Brenda and father of baby (FOB) Brett. Household composition: Currently residing at home is parents and first child, Leticia (2.5 years old). Patient's parent/guardian status: Parents report that they met while they were both in college. They were friends for a long time before they started dating, they have known each other for 12 years and will have been for 4 years next month. Baby is second child for both parents. Medical History: This is MOB second and delivery. LESVIA delived baby via scheduled due to Pre-eclampsia. Baby was born at 37 weeks gestation weighing 5lb and 13oz and is 19.5 inches long. LESVIA is being monitored for her blood pressure. Educational Status: Both parents graduated high school and attended college. MOB graduated with teaching degree. 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 MONI works for [employer]. LESVIA will be off on maternity leave all summer. MONI is able to get two weeks off of work following delivery. Supplies: Parents report they have obtained all necessary baby items including car seat, safe sleep space, clothes, diapers and wipes. Childcare/Caregiver(s): Parents will be primary caregivers until LESVIA returns to work in the upcoming school year. At which time maternal grandma will be tax record clerk while both parents are at work. Transportation: Both parents have drivers license and working vehicle. No transportation barriers at this time. Programs/Agencies Involved: [facility] Her counselor is Angelita Bhatti. LESVIA sees Ms. Bhatti one time a month, but is considering seeing her multiple times a month to help with post mental health concerns. [employer] provided MOB with brochure that explains benefits of [facility]. MOB to review and let sw know if they would like to get connected at time of discharge. Children Services/Legal Issues: Parents deny. Behavioral Health Issues: Both parents report they have been diagnosed with Anxiety and Depression. Mental Health History: LESVIA states that she has been diagnosed with Anxiety and depression. MONI states that he is also diagnosed with anxiety and depression. Both parents are prescribed Lexapro from their PCP. Sw educated parents on signs and symptoms of baby blues and post depression. LESVIA denies depression with her first baby, but recognizes similar symptoms with baby blues. Sw met with LESVIA separately, she completed Cardwell Depression Scale. Her score was a 1. Sw discussed continuing engagement with outpatient counseling. MOB agrees to recommendation. MOB denies DV/ abuse. MOB also denies current and historical SI. Substance Use History: Parents deny. Family History: Parents deny. Family/Social Stressors: MOB and MONI deny stressors at this time. They are pleased at how well the delivery went. Support Systems: LESVIA states that her mother is a big support. Maternal grandma is who is helping with older sibling at this time. Maternal grandma will also be childcare teacher provider when both parents are at work. MONI states that his family resides in [place]. They are supportive, but from a distance. Depression/Shaken Baby/Safe Sleeping: Sw provided education on depression. Parents expressed understanding. SW educated parents on shaken baby and ABC's of safe sleep. LESVIA states that she will teach their 2 year old about safe sleep. ASSESSMENT: Parents engaged in conversation during sw assessment. Parents observed to be loving towards baby. Parents receptive to sw involvement and support. PLAN: Sw follow up with parents regarding referral to [facility] prior to discharge. No other services requested or indicated. Jonathan Palmer, STAGE HAND, LOGISTICS PROGRAM MANAGER
--- NOTE | 2022-08-16 18:16 | NURSING ---
Addendum entered by Maura Arrieta 08/17/22 14:14: 1815 O2 placed on at 5 l/m per nc. Prior to this IS used frequently, C&DB encouraged. Original Note: 1814pt called RN to room, states she has had trouble getting her breath, is dizzy and Pt assisted back to bed, pulse ox 80%, lung sounds dimished ChARGE nurse called, and came to room. 1816 rapid response called, 1817 BP 165/103, pulse 118, pulse ox 80, O2 on at 5l/m Rapid response to room Damon Ramsey to room 181 Non rebreather on, pulse ox 82, lungs course ,BP 170/104 pulse ox [address] Granados to room
--- NOTE | 2022-08-16 18:20 | HP.PCM.OB_ITS ---
HPI - General General Date of Admission: 08/16/22 HPI Narrative CHRISTA GARCIA, is a 31 F who presents for RLTCS for preeclampsia, mild features. urine protein was significantly elevated but bps are mildly elevated, nl cbc and cmp, no SCHAEFER BV N V or RUQ pain. Maternal Data Information REAL Calculator Estimated Delivery Date Method Current WG Current Estimate 09/06/22 Ultrasound #1 37w 0d Other Estimates 09/15/22 LMP (Certain) 35w 5d PFSH PFSH Medical History (Updated 08/16/22 @ 18:[address] Michelle Rodríguez MD) Abscess of left thigh Family history of hearing loss at age younger than 7 years Home Medications escitalopram oxalate 10 mg tablet (Lexapro) 10 mg PO DAILY anxiety 02/11/22 [History Last Taken Unknown] omeprazole 20 mg capsule,delayed release 20 mg PO DAILY heartburn 02/11/22 [History Last Taken Unknown] vitamins no.163-iron bis-gly 20 mg-folate no.10 1 mg tablet (PNV Tabs 20-1) 1 tab PO DAILY 02/11/22 [History Last Taken Unknown] fluticasone propionate 50 mcg/actuation nasal spray,suspension (Flonase Allergy Relief) 2 spray intranasal DAILY sinus 08/09/22 [History Last Taken Unknown] metformin 500 mg PO.IVFORM BID insulin resistance 08/09/22 [History Last Taken Unknown] Allergy/AdvReac Type Severity Reaction Status Date / Time No Known Allergies Allergy Verified 08/16/22 05:55 Family History Mother Breast cancer, Onset Age: 61 Not genetic Grandmother Breast cancer, Onset Age: 65 Maternal Surgical History History of removal of cyst Hx of wisdom tooth extraction Previous section Social History adopted: No household members: spouse and children housing: house number of children: 1 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 occupational exposures/hazards: No pets and animals: Yes (Not managing litterbox) pets and animals: cat(s) history of recent travel: No sexually active: Yes Smoking Status: Never smoker alcohol intake: former details: socially prior to substance use type: does not use well-balanced diet: daily or most days caffeine: No eating out: 1-3 times/week during the past year weight has: decreased > 10 lbs what type of physical activity do you participate in: none juan/anglican: Non-Confucianism/Independent seatbelt use: always do you feel safe at home: Yes additional social history: - Lyle Marie History 2 Elective abortions Hx Para 1 Spontaneous abortions Hx # Term Pregnancies Ectopic pregnancies Hx # Pregnancies Multiple births # of living children 1 Past Pregnancies Del. Date Name GA/Weeks Outcome Route Bth Weight Gen Labor Lgth Anesthesia Del Locatn Provider FOB 03/25/20 Leticia 39 live - full term 7#4oz Female 18 hours epidural J[facility] Delivery Date: 03/25/20 Last Updated by: Pina Green emergency cs, decels Visit Details Expected Delivery Route/Plan RLTCS and BS patient counseled regarding risks/benefits of trial of labor versus repeat . ACOG/uptodate education given to patient. 42 % likelihood of success per calculator TOLAC consent form signed: [] pt still deciding based on low percentile. may want repeat cd Plans Covid status: discussed Flu vaccine: discussed Tdap vaccine: Rhogam: na LARC form signed: declined movement and labor precautions reviewed. Problem list reviewed and updated with the most current plan of care details and appropriate orders placed. Relevant counseling for the gestational age provided. Continue routine care and follow up unless otherwise noted in visit notes/problem list details OB Flowsheet Initial Weight: Not Recorded Date -?-?-?-?-?-?-?-?-?-?-?-?- EGA Weight BP Urine Prot -?-?-?-?-?-?-?-?-?-?--?-?- Glucose FHR FuHt Pres Dilation -?-?-?-?-?-?-?-?-?-?-?-?- Effaced St Visit Note 02/25/22 -?-?-?-?-?-?-?-?-?-?-?-?- 12w 3d 242 lb 8 oz 134/88 -?-?-?-?-?-?-?-?-?-?-?-?- 163 -?-?-?-?-?-?-?-?-?-?-?-?- JV- single live iup measuring 12 weeks 3 days. new real of 09/06/22 given. 03/26/22 -?-?-?-?-?-?-?-?-?-?-?-?- 16w 4d 244 lb 8 oz 135/81 Nega tive -?-?-?-?-?-?-?-?-?-?-?-?- Negative 155 -?-?-?-?-?-?-?-?-?-?-?-?- JV- JV- pt is worried about david ng the 3 hr gtt and knows that she is insulin resistance due to metabolic syndrome. she sees her endo on Tuesday. her GCT was 178 and close to overt dm. plan to start monitoring glucose levels and cancel the GTT. umbilical hernia is bothering her. She drives from [place] to see us. 04/22/22 -?-?-?-?-?-?-?-?-?-?-?-?- 20w 3d 243 lb 2 oz 118/74 Nega tive -?-?-?-?-?-?-?-?-?-?-?-?- Negative 145 -?-?-?-?-?-?-?-?-?-?-?-?- SM- no vb crampi ng reviewed bs all WNL with no change in diet, not following any low carbs. doens't appear to have diabetes. stopping testing. 05/17/22 -?-?-?-?-?-?-?-?-?-?-?-?- 24w 0d 239 lb 2 oz 125/82 Nega tive -?-?-?-?-?-?-?-?-?-?-?-?- Negative 140 -?-?-?-?-?-?-?-?-?-?-?-?- SM- scheduled re peat cs will do 3 hour gtt 06/16/22 -?-?-?-?-?-?-?-?-?-?-?-?- 28w 2d 246 lb 106/71 Negative -?-?-?-?-?-?-?-?-?-?-?-?- Negative 135 29 -?-?-?-?-?-?-?-?-?-?-?-?- JV- normal GTT ( done at [facility]), VSD resolved! TDAP today 06/28/22 -?-?-?-?-?-?-?-?-?-?-?-?- 30w 0d 249 lb 118/81 Negative -?-?-?-?-?-?-?-?-?-?-?-?- Negative 140 30 -?-?-?-?-?-?-?-?-?-?-?-?- SM- no vb lof go od fm no regular ctx 07/14/22 -?-?-?-?-?-?-?-?-?-?-?-?- 32w 2d 255 lb 2 oz 126/79 Nega tive -?-?-?-?-?-?-?-?-?-?-?-?- Negative 150 33 -?-?-?-?-?-?-?-?-?-?-?-?- JV- pt complains of nasal pressure and pain with lots of drainage and green mucous. JV- pt complains of nasal pr essure and pain with lots of drainage and green mucous. sending in amoxil and flonase. encourage saline nasal wash. start NSTs next visit for obesity bmi over 40 08/04/22 -?-?-?-?-?-?-?-?-?-?-?-?- 35w 2d 140/94 2+ -?-?-?-?-?-?-?-?-?-?-?-?- Negative 150 36 Cephalic 0 .5 -?-?-?-?-?-?-?-?-?-?-?-?- -3 JV- pres sure up today with 2+ protein. rpt was 130/90. pt states that she was stressed because late for visit and did not eat or drink today. sending PIH labs including pr:cr. NST reactive, JANES is 13. bring back 2 times next week for close follow up and will call with labs 08/09/22 -?-?-?-?-?-?-?-?-?-?-?-?- 36w 0d 262 lb 6 oz 153/97 154/103 2+ -?-?-?-?-?-?-?-?-?-?-?-?- Negative 130 -?-?-?-?-?-?-?-?-?-?-?-?- KW-NST today. BP elevated. SCHAEFER upon awakening. to for evaluation. had [facility] over the weekend. SM aware and agrees with plan. 08/13/22 -?-?-?-?-?-?-?-?-?-?-?-?- 36w 4d 261 lb 2 oz 147/100 3+ -?-?-?-?-?-?-?-?-?-?-?-?- Negative 140 36 Cephalic -?-?-?-?-?-?-?-?-?-?-?-?- - repeat labs ordered no vb lof good fm no regular ctx bedside janes 17 cm 08/16/22 -?-?-?-?-?-?-?-?-?-?-?-?- 37w 0d 263 lb 163/111 145/94 145/94 126/88 121/83 127/80 122/73 121/96 138/91 139/90 140/90 140/90 143/81 141/92 131/88 -?-?-?-?-?-?-?-?-?-?-?-?- -?-?-?-?-?-?-?-?-?-?-?-?- NST FHR Rate Baby A Baseline: 130 ROS Constitutional Constitutional: Reports systems reviewed and no addt'l complaints, except as documented Eyes Eyes: Denies change in vision ENT HEENT: Reports systems reviewed and no addt'l complaints, except as documented; Denies headache(s) Cardiovascular Cardiovascular: Reports systems reviewed and no addt'l complaints, except as documented; Denies chest pain or dyspnea Respiratory/Chest Respiratory/Chest: Reports systems reviewed and no addt'l complaints, except as documented Gastrointestinal Gastrointestinal: Reports systems reviewed and no addt'l complaints, except as documented; Denies abdominal pain Genitourinary Genitourinary: Reports systems reviewed and no addt'l complaints, except as documented, contractions Details: present (irregular) and movement Details : present; Denies dysuria or genital lesions Musculoskeletal Musculoskeletal: Reports systems reviewed and no addt'l complaints, except as documented Neurologic Neurologic: Reports systems reviewed and no addt'l complaints, except as documented Endocrine Endocrinology: Reports systems reviewed and no addt'l complaints, except as documented Vital Signs Vital Signs Vital Signs: 08/16/22 05:41 08/16/22 05:41 08/16/22 05:45 Temperature Temperature Source Pulse Rate 104 H 105 H Respiratory Rate Respiratory Depth Respiratory Pattern Blood Pressure Blood Pressure [BP] Blood Pressure Mean Blood Pressure Mean [BP] BP Systolic BP Diastolic Blood Pressure Source Blood Pressure Source [BP] Blood Pressure Position Blood Pressure Position [BP] Blood Pressure Location Blood Pressure Location [BP] Baseline BP Pulse Ox 96 Oxygen Delivery Method 08/16/22 05:45 08/16/22 05:45 08/16/22 05:45 Temperature Temperature Source Pulse Rate 103 H Respiratory Rate Respiratory Depth Respiratory Pattern Blood Pressure 163/111 H Blood Pressure [BP] Blood Pressure Mean Blood Pressure Mean [BP] BP Systolic 163 BP Diastolic 111 Blood Pressure Source Blood Pressure Source [BP] Blood Pressure Position Blood Pressure Position [BP] Blood Pressure Location Blood Pressure Location [BP] Baseline BP Pulse Ox 93 Oxygen Delivery Method 08/16/22 05:46 08/16/22 05:46 08/16/22 05:51 Temperature Temperature Source Pulse Rate 97 97 Respiratory Rate Respiratory Depth Respiratory Pattern Blood Pressure Blood Pressure [BP] Blood Pressure Mean Blood Pressure Mean [BP] BP Systolic BP Diastolic Blood Pressure Source Blood Pressure Source [BP] Blood Pressure Position Blood Pressure Position [BP] Blood Pressure Location Blood Pressure Location [BP] Baseline BP Pulse Ox 96 Oxygen Delivery Method 08/16/22 05:51 08/16/22 05:56 08/16/22 05:56 Temperature Temperature Source Pulse Rate 104 H Respiratory Rate Respiratory Depth Respiratory Pattern Blood Pressure Blood Pressure [BP] Blood Pressure Mean Blood Pressure Mean [BP] BP Systolic BP Diastolic Blood Pressure Source Blood Pressure Source [BP] Blood Pressure Position Blood Pressure Position [BP] Blood Pressure Location Blood Pressure Location [BP] Baseline BP Pulse Ox 96 97 Oxygen Delivery Method 08/16/22 06:01 08/16/22 06:01 08/16/22 06:04 Temperature Temperature Source Pulse Rate 93 Respiratory Rate Respiratory Depth Respiratory Pattern Blood Pressure 145/94 H Blood Pressure [BP] Blood Pressure Mean Blood Pressure Mean [BP] BP Systolic 145 BP Diastolic 94 Blood Pressure Source Blood Pressure Source [BP] Blood Pressure Position Blood Pressure Position [BP] Blood Pressure Location Blood Pressure Location [BP] Baseline BP Pulse Ox 97 Oxygen Delivery Method 08/16/22 06:04 08/16/22 06:06 08/16/22 06:06 Temperature Temperature Source Pulse Rate 90 93 Respiratory Rate Respiratory Depth Respiratory Pattern Blood Pressure Blood Pressure [BP] Blood Pressure Mean Blood Pressure Mean [BP] BP Systolic BP Diastolic Blood Pressure Source Blood Pressure Source [BP] Blood Pressure Position Blood Pressure Position [BP] Blood Pressure Location Blood Pressure Location [BP] Baseline BP Pulse Ox 96 Oxygen Delivery Method 08/16/22 07:00 08/16/22 08:55 08/16/22 09:10 Temperature 99 F 97.8 F 97.8 F Temperature Source Temporal Oral Oral Pulse Rate 99 91 86 Respiratory Rate 16 14 23 H Respiratory Depth Respiratory Pattern Normal Blood Pressure 145/94 H 126/88 H 121/83 H Blood Pressure [BP] Blood Pressure Mean 111 100 95 Blood Pressure Mean [BP] BP Systolic BP Diastolic Blood Pressure Source Monitor Monitor Monitor Blood Pressure Source [BP] Blood Pressure Position Semi-Fowlers Semi-Fowlers Semi-Fowlers Blood Pressure Position [BP] Blood Pressure Location Right Arm Right Arm Right Arm Blood Pressure Location [BP] Baseline BP 145/94 145/94 Pulse Ox 96 96 96 Oxygen Delivery Method Room Air Room Air Room Air 08/16/22 09:25 08/16/22 09:40 08/16/22 09:55 Temperature 97.6 F L 97.6 F L Temperature Source Oral Temporal Pulse Rate 87 89 93 Respiratory Rate 20 H 17 17 Respiratory Depth Respiratory Pattern Blood Pressure 127/80 H 122/73 H 121/96 H Blood Pressure [BP] Blood Pressure Mean 95 89 104 Blood Pressure Mean [BP] BP Systolic BP Diastolic Blood Pressure Source Monitor Monitor Monitor Blood Pressure Source [BP] Blood Pressure Position Semi-Fowlers Semi-Fowlers Semi-Fowlers Blood Pressure Position [BP] Blood Pressure Location Right Arm Right Arm Right Arm Blood Pressure Location [BP] Baseline BP 145/94 145/94 145/94 Pulse Ox 100 100 Oxygen Delivery Method Room Air Room Air Room Air 08/16/22 10:10 08/16/22 10:25 08/16/22 10:40 Temperature 97.8 F 97.8 F 97.7 F L Temperature Source Oral Oral Oral Pulse Rate 87 91 93 Respiratory Rate 12 14 13 Respiratory Depth Respiratory Pattern Blood Pressure 138/91 H 139/90 H 140/90 H Blood Pressure [BP] Blood Pressure Mean 106 106 106 Blood Pressure Mean [BP] BP Systolic BP Diastolic Blood Pressure Source Monitor Monitor Monitor Blood Pressure Source [BP] Blood Pressure Position Semi-Fowlers Semi-Fowlers Semi-Fowlers Blood Pressure Position [BP] Blood Pressure Location Right Arm Right Arm Right Arm Blood Pressure Location [BP] Baseline BP 145/94 145/94 145/94 Pulse Ox 100 100 100 Oxygen Delivery Method Room Air Room Air Room Air 08/16/22 10:55 08/16/22 11:10 08/16/22 13:10 Temperature 98.6 F 97.7 F L 97.9 F Temperature Source Temporal Oral Oral Pulse Rate 92 94 93 Respiratory Rate 12 26 H 16 Respiratory Depth Respiratory Pattern Blood Pressure 140/90 H 143/81 H Blood Pressure [BP] 139/82 H Blood Pressure Mean 106 101 Blood Pressure Mean [BP] 101 BP Systolic BP Diastolic Blood Pressure Source Monitor Monitor Blood Pressure Source [BP] Monitor Blood Pressure Position Semi-Fowlers Semi-Fowlers Blood Pressure Position [BP] Semi-Fowlers Blood Pressure Location Right Arm Right Arm Blood Pressure Location [BP] Right Arm Baseline BP 145/94 145/94 Pulse Ox 100 100 100 Oxygen Delivery Method Room Air Room Air Room Air 08/16/22 13:41 08/16/22 13:30 08/16/22 15:30 Temperature 97.9 F Temperature Source Oral Pulse Rate 93 Respiratory Rate 16 16 Respiratory Depth Normal Normal Normal Respiratory Pattern Blood Pressure 141/92 H Blood Pressure [BP] Blood Pressure Mean 108 Blood Pressure Mean [BP] BP Systolic BP Diastolic Blood Pressure Source Monitor Blood Pressure Source [BP] Blood Pressure Position Semi-Fowlers Blood Pressure Position [BP] Blood Pressure Location Blood Pressure Location [BP] Baseline BP Pulse Ox 100 100 100 Oxygen Delivery Method Room Air Room Air Room Air 08/16/22 16:41 08/16/22 17:40 Temperature Temperature Source Pulse Rate 96 Respiratory Rate 18 16 Respiratory Depth Normal Respiratory Pattern Blood Pressure 131/88 H Blood Pressure [BP] Blood Pressure Mean 102 Blood Pressure Mean [BP] BP Systolic BP Diastolic Blood Pressure Source Monitor Blood Pressure Source [BP] Blood Pressure Position Semi-Fowlers Blood Pressure Position [BP] Blood Pressure Location Right Arm Blood Pressure Location [BP] Baseline BP Pulse Ox 95 93 Oxygen Delivery Method Room Air Room Air Weight Weight: 263 lb Body Mass Index (BMI) 46.5 Physical Exam Const alert, oriented x3, no apparent distress and healthy appearing HEENT normocephalic and moist oral mucous membranes Head and Scalp: atraumatic Neck full ROM, no lymphadenopathy, supple and thyroid normal General: trachea midline Lymph Lymphatic: no lymphadenopathy noted Chest inspection of chest normal Resp normal respiratory effort Cardio regular rate GI normal to inspection, nondistended, normoactive bowel sounds, soft to palpation and non-tender Inspection: gravid external exam normal Manual OB Exam: estimated gestational size appropriate, presentation cephalic, dilated, effaced and station Extremity normal to inspection General Extremity: Negative for edema Skin no rashes or lesions noted Neuro no focal motor deficits and deep tendon reflexes 2+ bilaterally Motor Exam: strength 5/5 throughout and clonus absent Psych mental status grossly normal Labs Labs Labs: Blood Type A POSITIVE Antibody Screen NEGATIVE Hct 31.8 % (37-47) L Hgb 10.3 g/dL (12.0-15.0) L Syphilis Total Ab Non-reactive Rubella IgG Antibody Reactive (Nonreactive) Hep Bs Antigen Non-Reactive (Nonreactive) Chlamydia DNA (ELENA) Negative (Negative) Neisseria gonorrhoeae DNA (ELENA) Negative (Negative) HIV 1&2 Antibody Non-Reactive (Nonreactive) Glucose 1 Hr 50 gm 148 mg/dL (70-140) H Assessment & Plan (1) : QUALIFIERS: Weeks of gestation: 36 weeks Qualified Code(s): Z3A.36 - 36 weeks gestation of COMMENT: NIPT low risk, discussed carrier testing, anatomy nl, nl growth. (2) Supervision of high risk , antepartum: COMMENT: PRR , REAL 09/06/22, boy, PC Leticia Brett (3) Anxiety: COMMENT: lexapro (4) Depression: COMMENT: lexapro counseling (5) History of : COMMENT: decels- was induced and taken for emergency prior to 5 cm dilated. wants to - chance of success is 42.2% RLTCSBS scheduled 08/30 @ 12 with SM (6) Abnormal glucose affecting : COMMENT: 05/28 3HR GTT nl done at [facility] (7) Obesity affecting : COMMENT: NST weekly starting at 34 weeks (8) Uterine fibroids affecting : COMMENT: 2 fibroids-Anterior right- [id number] & [id number] (9) Hypertension affecting : (10) Pre-eclampsia: COMMENT: increased to 4600, mild pressure elevations. janes 13 on 08/04 with reactive nst. plan twice weekly testing and plan delivery at 37 weeks (11) Sterilization: COMMENT: plan BS at [facility] PLAN: Plan admit for RLTCS and BS repeat preeclampsia labs this am- stable. bps mildly elevated. monitor after delivery
--- NOTE | 2022-08-16 18:21 | EX.PCM.OBRPT ---
Assessment & Plan (1) : QUALIFIERS: Weeks of gestation: 36 weeks Qualified Code(s): Z3A.36 - 36 weeks gestation of COMMENT: NIPT low risk, discussed carrier testing, anatomy nl, nl growth. (2) Supervision of high risk , antepartum: COMMENT: PRR , REAL 09/06/22, boy, PC Leticia Brett (3) Anxiety: COMMENT: lexapro (4) Depression: COMMENT: lexapro counseling (5) History of : COMMENT: decels- was induced and taken for emergency prior to 5 cm dilated. wants to - chance of success is 42.2[facility] @ 12 with SM (6) Abnormal glucose affecting : COMMENT: 05/28 3HR GTT nl done at [facility] (7) Obesity affecting : COMMENT: NST weekly starting at 34 weeks (8) Uterine fibroids affecting : COMMENT: 2 fibroids-Anterior right- [id number] & [id number] (9) Hypertension affecting : (10) Pre-eclampsia: COMMENT: increased to 4600, mild pressure elevations. vikas 13 on 08/04 with reactive nst. plan twice weekly testing and plan delivery at 37 weeks (11) Sterilization: COMMENT: plan BS at [facility] Maternal Data Information REAL Calculator Estimated Delivery Date Method Current WG Current Estimate 09/06/22 Ultrasound #1 37w 0d Other Estimates 09/15/22 LMP (Certain) 35w 5d Final REAL Source: LMP Gestational age: 39 Details Operative Information Date of Procedure: 08/16/22 Pre-Operative Diagnosis: see a/p diagnoses Post-Operative Diagnosis: same Indications Narrative: surgeon: Michelle Rodríguez MD Procedure Type: low transverse (and bilateral salpingectomy) regulatory services consultant #1: Artie Acuna regulatory services consultant #2: Arpita Fischer Type of Anesthesia: Epidural Special Medications: none Drain: Ely to straight drain Estimated Blood Loss: 600 Fluids Replaced: crystalloid Findings Description of Procedure: The patient was placed in the dorsal supine position with leftward tilt. Patient was prepped and draped in the normal sterile fashion. Pfannenstiel skin incision was made with the scalpel and carried through to the underlying layer of fascia with the scalpel. Fascia was nicked in the midline and the incision extended laterally. The rectus bellies were dissected off superiorly and inferiorly with out complication both sharply and bluntly. The peritoneum was entered digitally. The incision was stretched and a low transverse uterine incision was made with the scalpel. The 's head was delivered atraumatically followed by the anterior and posterior shoulders without complication the rest of the delivered. The cord was clamped and cut and the was handed off to awaiting nurse. The placenta was delivered spontaneously immediately following and was noted to be intact and have a three-vessel cord. The uterus was exteriorized cleared of all clots and debris, and the incision was closed in a single layer closure using #1 Monocryl. The ovaries and fallopian tubes were noted to be within normal limits. Patient had desired sterilization and was counseled preoperatively regarding irreversibility and permanency. Therefore bilateral fallopian tubes were elevated and transected across using a LigaSure device starting proximally to distally without complication the entire fallopian tubes were removed. The uterus was returned to the maternal abdomen and gutters were cleared of all clots and debris. The peritoneum was closed with 3-0 Monocryl in a running fashion. Gloves were changed prior to fascial closure. Fascia was closed with 0 PDS in a running fashion. Subcutaneous tissue was copiously irrigated and the skin was closed with 3-0 Monocryl in a subcuticular fashion. Mepilex dressing was applied without complication. Patient was taken to recovery in stable condition. Placental Delivery Description: Spontaneous Placenta Disposition: [facility] Cord Vessel Description: 3 Vessels Delayed Cord Clamping: Yes Complications Risks of Surgery Discussed w/Patient: Bleeding, Infection, Need for Future C-Sections and Injury to surrounding structure(s) including bowel and bladder Complications: none Admit VTE Documentation VTE Present on Admission: No VTE Mechan Device Prophylaxis: SCD's Procedures Urinary/Genital [id number]: [id number] Delivery [facility]
--- NOTE | 2022-08-16 18:25 | EKG12_ITS ---
Test Reason : SOB Blood Pressure : / mmHG Vent. Rate : 132 BPM Atrial Rate : 132 BPM P-R Int : 116 ms QRS Dur : 064 ms QT Int : 284 ms P-R-T Axes : 051 044 029 degrees QTc Int : 420 ms Sinus tachycardia with frequent and consecutive Premature ventricular complexes Nonspecific ST and T wave abnormality Abnormal ECG No previous ECGs available Confirmed by JALEESA TRIVEDI, WENDY ([id number]), associate entertainment editor TAL MCCOLLUM ([id number]) on 08/17/2022 1:11:46 PM Referred By: RANDALL Confirmed By:WENDY LAZCANO MD
--- NOTE | 2022-08-16 18:30 | RAD_ITS ---
STUDY: X-RAY CHEST REASON FOR EXAM: Female, 31 years old. Shortness of breath TECHNIQUE: Single AP portable view of the chest. COMPARISON: None. FINDINGS: There are moderate right greater than left interstitial and airspace opacities of the lungs. There is no demonstrated pleural abnormality. Normal size heart. Normal mediastinum and michelle. Normal visualized pulmonary arteries. Normal visualized aortic arch and descending thoracic aorta. Normal visualized thoracic spine. Normal visualized ribs, clavicles, and shoulders. There is no demonstrated abnormality of the visualized soft tissue structures of the upper abdomen. RAD/Chest 1 View (Portable) IMPRESSION: Right greater than left pneumonia or edema. Electronically Signed: Davi Thompson MD at 19:34 EDT ,
[2022-08-16] MEDS: LORazepam 2 MG/ML Syringe 1 MG IV (18:32)
[2022-08-16] MEDS: Furosemide 40 MG/4 ML Vial IV ×2 (18:33→21:08)
--- NOTE | 2022-08-16 18:34 | NURSING ---
1823 Lasmiri ordered, ativan ordered by Dr.Lee conde
[2022-08-16] MEDS: Labetalol (Prefilled) 20 MG/4 ML IV (18:39)
--- NOTE | 2022-08-16 18:43 | NURSING ---
1824pulse ox 89 1825 lasix 40mg given IV, ativan 1mg given Stat cbc, cmp, bmp drawn.bp182/110 1826pulse ox 96 with nonrebreather at 15 l/m EKG done 182 pulse ox 92, pulse 140 1828 pulse ox 92, Pulse 136 1830 ely cath ordered by DR Nichols pulse ox 90, pulse 136 1830Xray crew in bp 170/111 1832 chest xray done 183 Dr Rodríguez decided to transfer to ICU, pt has been c/o feeling short of breath, is dyaphoretic and clammy. Color pink. Lung sounds course. Lots of emotional support given to Brenda and Brett. Pulse ox 92, pulse 141 1834 BP 183/111Labetelol ordered. 183 Ely in 1838 Pulse ox 94, pulse 139 1839 Labetelol given 1808ia574/100 HR 131, pulse ox 93 1845 155/101, HR 110 1846 Transferred to ICU
[2022-08-16 18:47] LABS: Absolute Neutrophil Count 21.5 X10^3/uL (2.0-7.7); Basophil# 0.07 X10^3/uL; Basophil% 0.2 % (0-1); Eosinophil# 0.02 X10^3/uL; Eosinophils% 0.1 % (0-5); Hematocrit 38.1 % (37-47); Hemoglobin 12.3 g/dL (12.0-15.0); Lymphocyte % 18.5 % (19-41); Mean Corp Hgb Conc 32.3 g/dL (32-36); Mean Corpuscular Hgb 28.2 pg (27.0-32.0); Mean Corpuscular Volume 87.4 fL (81-99); Mean Platelet Vol. 11.2 fl (6.2-12.0); Monocyte# 1.11 X10^3/uL; Monocyte% 3.9 % (0-10); NRBC Flagged by Analyzer 0 % (0-5); Neutrophil # 21.49 X10^3/uL (2.7-7.7); Neutrophil % 76.5 % (47-70); POSITIVE DIFFERENTIAL YES; Platelet Count 454 K/mm3 (150-450); RBC Distribution Width CV 13.2 % (11.6-14.6); RBC Distribution Width SD 41.7 fl (35.1-43.9); Red Blood Count 4.36 M/mm3 (4.2-5.4); White Blood Count 28.1 K/mm3 (4.4-11.0)
[2022-08-16 18:50] LABS: Differential Indicated SCAN CRITERIA MET
--- NOTE | 2022-08-16 18:50 | PN.OBGYN_ITS ---
Subjective Subjective Patient evaluated due to acute onset of severe shortness of breath and pulse ox dropping down to the 70s to 80s on room air. Recovery into the 90s with oxygen mask. Rapid response team called and patient was evaluated by myself and the internal medicine physician. Stat chest x-ray performed and suggestive of maribell ateral pulmonary edema. IV Lasix given and Ely replaced. IV Ativan given for anxiety and IV labetalol given for elevated blood pressure 160s to 170s over 100s. Postoperatively patient was having a routine recovery and was doing well when she acutely developed the current symptoms. Objective Data Objective Data Vital Signs: Vital Signs Temp Pulse Resp BP Pulse Ox O2 Del Method 97.9 F 96 16 131/88 H 93 Room Air 08/16/22 15:30 08/16/22 16:41 08/16/22 17:40 08/16/22 17:40 08/16/22 17:40 08/16/22 17:40 Oxygen Delivery Method Room Air Weight: 263 lb Body Mass Index (BMI) 46.5 Intake & Output: Intake and Output for Last 24 Hours 08/14/22 08/15/22 08/16/22 23:59 23:59 23:59 Intake Total 3810.48 / 3810.48 Output Total 1300 / 1300 Balance 2510.48 / 2510.48 Lab / Micro Data Result Diagrams: 08/16/22 18:30 08/16/22 06:25 Labs: Laboratory Results - last 24 hr 08/16/22 05:55: WBC 11.3 H, RBC 3.61 L, Hgb 10.3 L, Hct 31.8 L, MCV 88.1, MCH 28.5, MCHC 32.4, RDW Std Deviation 41.4, RDW Coeff of Seema 13.2, Plt Count 305, MPV 11.3, Immature Gran % (Auto) 0.600, Neut % (Auto) 62.9, Lymph % (Auto) 27.5, [place] % (Auto) 7.5, Eos % (Auto) 1.1, Baso % (Auto) 0.4, Absolute Neuts (auto) 7.1, Absolute Lymphs (auto) 3.11, Nucleated RBC % 0 08/16/22 05:55: Blood Type A POSITIVE, Antibody Screen NEGATIVE 08/16/22 05:55: Syphilis Total Ab Non-reactive 08/16/22 06:25: Sodium 138, Potassium 3.4 L, Chloride 110 H, Carbon Dioxide 21.0, Anion Gap 7, BUN 5 L, Creatinine 0.48 L, Estim Creat Clear Calc 141.77, Est GFR (MDRD) Af Amer 196, Est GFR (MDRD) Non-Af 162, BUN/Creatinine Ratio 10.5, Glucose 101, Calcium 8.4 L, Total Bilirubin 0.20, AST 15, ALT 11 L, Alkaline Phosphatase 181 H, Total Protein 5.4 L, Albumin 1.7 L, Globulin 3.7, Albumin/Globulin Ratio 0.5 L Physical Exam Const alert and oriented x3 Constitutional Narrative: severe SOB, anxious General Appearance: in distress Orientation / Consciousness: awake HEENT normocephalic and head/scalp atraumatic Face and Sinus: normal facial exam Eyes EOMs intact bilaterally General Eye: normal appearance of both eyes Neck full ROM Chest inspection of chest normal Resp Effort and Inspection: tachypneic, respiratory distress and actively coughing Auscultation: crackles bilateral and diffuse Cardio regular rhythm, S1 normal heart sound and S2 normal heart sound Rate: tachycardic GI soft to palpation, non-tender and non-distended Assessment & Plan (1) Acute dyspnea: COMMENT: suspect flash pulmonary edema- giving IV lasix, will get CT chest and echo, EKG done. in ICU overnight for support (2) delivery delivered: COMMENT: ZULEYKA RLTCS BS boy Amador 38 preeclampsia PLAN: Plan see above comments for details transfer to ICU for comanagement bp goals to remain under 160/110, cbc cmp bnp ordered stat reviewed care with Dr Nichols
--- NOTE | 2022-08-16 19:01 | PCM.CONS.GEN ---
Assessment & Plan Assessment/Plan (1) Acute respiratory failure with hypoxia: (2) Pre-eclampsia: PLAN: Plan Acute hypoxic respiratory failure secondary to flash pulmonary edema -Chest x-ray is consistent with pulmonary edema -BNP is pending -Check echocardiogram in a.m. -Strict I's and O's -Daily weights -Ely placement -Fluid restriction at 1500 cc -BiPAP stat -Lasix 40 mg every 8 hours -N.p.o. for now but may transition to regular diet if patient tolerates supplemental oxygen with nasal cannula -Check CTA of the chest once patient is able to lie flat to rule out pulmonary embolism -EKG is unremarkable -Consult pulmonary/critical care medicine--> Case was discussed with Dr. De León Leukocytosis -Suspect reactive -Very low suspicion for infection -Repeat CBC in a.m. Preeclampsia -As needed labetalol every 4 hours to keep blood pressure systolic less than 140 -No seizure prophylaxis needed as long as we can keep blood pressure down -Would like to avoid magnesium if possible as this could increase her risk for worsening edema - -Postop day 0 -Baby is doing well -Intend to breast-feed -OB following GERD -Continue PPI History of insulin resistance -On metformin as an outpatient -On hold for now -Did receive steroids earlier today -Monitor blood sugars -If blood sugars elevated could consider adding SSI Seasonal allergies -Continue Flonase Depression -Continue Lexapro DVT prophylaxis -Lovenox 40 twice daily to initiate tonight CODE STATUS -Full code Critical care time greater than 35 minutes without procedures including rapid response and transferred to the intensive care unit HPI Consult Data Date of Consult: 08/16/22 HPI Narrative HPI Narrative: CHRISTA GARCIA, is a 31 F who presented to the hospital today for elective for preeclampsia with mild features. Her urine protein was slightly elevated but BPs were mildly elevated in the 140s to 150s. She was admitted to the hospital by PROCUREMENT INSPECTOR and taken to the operating room this morning. She is 36 weeks gestation and her estimated date of confinement was to be on 09/06/2022. She initially did well postoperatively but this evening developed acute shortness of breath with hypoxia having oxygen saturations in the 70s and was placed on supplemental oxygen. She appeared to be in respiratory distress having tachycardia with heart rates in the 130s to 140s and high blood pressures with systolic at 170's and diastolic greater than 100. Rapid response was called for this. Upon arrival she sounded extremely wet on exam and was markedly tachypneic and very anxious. She was given 40 mg of IV push Lasix x1 dose, a Ely was placed pot, she was given Ativan 1 mg x 1 dose and we obtained a EKG and a chest x-ray. EKG showed sinus tachycardia with no ST-T wave changes concerning for acute ischemia. The patient was not having any chest pain. Chest x-ray showed marked pulmonary edema bilaterally slightly greater on the right than the left and exam was consistent with this. She was transferred to the ICU for ongoing care. Stat CBC, CMP, and BNP were obtained as well. [facility] Medical History Abscess of left thigh Family history of hearing loss at age younger than 7 years Home Medications escitalopram oxalate 10 mg tablet (Lexapro) 10 mg PO DAILY anxiety 02/11/22 [History Last Taken Unknown] omeprazole 20 mg capsule,delayed release 20 mg PO DAILY heartburn 02/11/22 [History Last Taken Unknown] vitamins no.163-iron bis-gly 20 mg-folate no.10 1 mg tablet (PNV Tabs 20-1) 1 tab PO DAILY 02/11/22 [History Last Taken Unknown] fluticasone propionate 50 mcg/actuation nasal spray,suspension (Flonase Allergy Relief) 2 spray intranasal DAILY sinus 08/09/22 [History Last Taken Unknown] metformin 500 mg PO.IVFORM BID insulin resistance 08/09/22 [History Last Taken Unknown] Allergy/AdvReac Type Severity Reaction Status Date / Time No Known Allergies Allergy Verified 08/16/22 05:55 Family History Mother Breast cancer, Onset Age: 61 Not genetic Grandmother Breast cancer, Onset Age: 65 Maternal Surgical History History of removal of cyst Hx of wisdom tooth extraction Previous section Social History adopted: No household members: spouse and children housing: house number of children: 1 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 occupational exposures/hazards: No pets and animals: Yes (Not managing litterbox) pets and animals: cat(s) history of recent travel: No sexually active: Yes Smoking Status: Never smoker alcohol intake: former details: socially prior to substance use type: does not use well-balanced diet: daily or most days caffeine: No eating out: 1-3 times/week during the past year weight has: decreased > 10 lbs what type of physical activity do you participate in: none juan/mormon: Non-Gnosticist/Independent seatbelt use: always do you feel safe at home: Yes additional social history: - Lyle LOO Review of Systems ROS Unobtainable: other Details: Respiratory distress Physical Exam Const alert and well nourished; Negative for no apparent distress Constitutional Narrative: Morbidly obese, young, white female, sitting up in bed, visibly in respiratory extremis on nonrebreather with oxygen saturations in the 90s, appears very anxious, mental status appears to be stable and upon evaluation later she was alert and oriented x3, , baby, and OB at the bedside HEENT normocephalic and head/scalp atraumatic HEENT Narrative: Mallampati 3, no thrush Eyes PERRL and EOMs intact bilaterally Eyes Narrative: No scleral icterus Neck no lymphadenopathy and supple Neck Narrative: Trachea midline, no regular Resp No normal respiratory effort, No normal air movement and No clear to auscultation bilaterally Resp Narrative: In visible respiratory distress with marked tachypnea and anxious this Effort and Inspection: tachypneic, respiratory distress, labored and uses accessory muscles Auscultation: rales bilateral and diffuse Cardio regular rhythm, S1 normal heart sound, S2 normal heart sound, no murmurs, no rub, no gallops and peripheral pulses 2+ throughout Cardio Narrative: Tachycardic Rate: tachycardic Rhythm: Negative for abnormal rhythm GI normal to inspection, nondistended, normoactive bowel sounds and soft to palpation GI Narrative: Tender at incision site, no significant bleeding Extremity normal capillary refill and no calf tenderness Extremity Narrative: Trace bilateral lower extremity edema, no cyanosis or clubbing, no calf tenderness Skin no rashes or lesions noted and skin turgor normal Neuro no focal motor deficits Neuro Narrative: Unable to fully assess well due to respiratory extremis Psych Activity / Motor Behavior: restless Mood & Affect: anxious Lab / Micro Data Result Diagrams: 08/16/22 18:30 08/16/22 18:30 Labs: Laboratory Results - last 24 hr 08/16/22 05:55: WBC 11.3 H, RBC 3.61 L, Hgb 10.3 L, Hct 31.8 L, MCV 88.1, MCH 28.5, MCHC 32.4, RDW Std Deviation 41.4, RDW Coeff of Seema 13.2, Plt Count 305, MPV 11.3, Immature Gran % (Auto) 0.600, Neut % (Auto) 62.9, Lymph % (Auto) 27.5, [place] % (Auto) 7.5, Eos % (Auto) 1.1, Baso % (Auto) 0.4, Absolute Neuts (auto) 7.1, Absolute Lymphs (auto) 3.11, Nucleated RBC % 0 08/16/22 05:55: Blood Type A POSITIVE, Antibody Screen NEGATIVE 08/16/22 05:55: Syphilis Total Ab Non-reactive 08/16/22 06:25: Sodium 138, Potassium 3.4 L, Chloride 110 H, Carbon Dioxide 21.0, Anion Gap 7, BUN 5 L, Creatinine 0.48 L, Estim Creat Clear Calc 141.77, Est GFR (MDRD) Af Amer 196, Est GFR (MDRD) Non-Af 162, BUN/Creatinine Ratio 10.5, Glucose 101, Calcium 8.4 L, Total Bilirubin 0.20, AST 15, ALT 11 L, Alkaline Phosphatase 181 H, Total Protein 5.4 L, Albumin 1.7 L, Globulin 3.7, Albumin/Globulin Ratio 0.5 L 08/16/22 18:30: WBC 28.1 H, RBC 4.36, Hgb 12.3, Hct 38.1, MCV 87.4, MCH 28.2, MCHC 32.3, RDW Std Deviation 41.7, RDW Coeff of Seema 13.2, Plt Count 454 H, MPV 11.2, Immature Gran % (Auto) 0.800, Neut % (Auto) 76.5 H, Lymph % (Auto) 18.5 L, [place] % (Auto) 3.9, Eos % (Auto) 0.1, Baso % (Auto) 0.2, Absolute Neuts (auto) 21.5 H, Absolute Lymphs (auto) 5.20 H, Nucleated RBC % 0 Charges/Coding Procedures Hospitalists Procedures: 31275 Critial Care 1st Hr
--- NOTE | 2022-08-16 19:06 | ECHOD_ITS ---
Reason For Study: S/P , ACUTE SOB, HYPOXIA, TACHCARDIA, HTN. Procedure This was a 2D Doppler, Color Flow transthoracic echocardiogram. Exam performed portable in ICU/CCU. Left Ventricle Normal LV size. Mild concentric left ventricular hypertrophy. The estimated ejection fraction is 40 %. Mild to moderate global left ventricular systolic dysfunction. There is mild to moderate global hypokinesis of the left ventricle. Right Ventricle Normal RV size. Normal systolic function. Atria Normal left atrium. Normal right atrium. Mitral Valve Normal mitral valve. Tricuspid Valve Normal tricuspid valve. Aortic Valve Normal aortic valve. Trisinus/trileaflet aortic valve. Pulmonic Valve Normal pulmonic valve. Great Vessels Normal aortic root. The pulmonary artery is normal size. Normal inferior vena cava. Pericardium/Pleural No pericardial effusion. MMode/2D Measurements & Calculations LVIDd: 5.2 cm IVSd: 1.2 cm Ao root diam: 3.0 cm LVIDs: 4.3 cm LVPWd: 1.2 cm FS: 16.2 % LAV(MOD-bp): 66.4 ml LVAd ap4: 39.6 cm2 SV(MOD-sp4): 54.0 ml LAV(MOD-bp) Indexed: 30.6 ml/m2 LVLd ap4: 9.5 cm LAV(MOD-sp2): 61.2 ml EDV(MOD-sp4): 141.5 ml LAV(MOD-sp4): 61.0 ml EDV(sp4-el): 140.4 ml LVAs ap4: 28.3 cm2 LVLs ap4: 8.0 cm ESV(MOD-sp4): 87.6 ml ESV(sp4-el): 85.0 ml EF(MOD-sp4): 38.1 % EF(sp4-el): 39.4 % SV(sp4-el): 55.4 ml LA A4 area: 19.0 cm2 LA dimension(2D): 4.2 cm RA A4 area: 15.0 cm2 Doppler Measurements & Calculations MV E max el: 82.1 cm/sec Lat Peak E' Le: 6.7 cm/sec Med Peak E' El: 6.1 cm/sec MV A max el: 109.9 cm/sec E/E' lat: 12.2 E/E' med: 13.5 MV E/A: 0.75 Ao V2 max: 139.6 cm/sec LV V1 max: 95.5 cm/sec PA V2 max: 107.9 cm/sec Ao max P.8 mmHg LV V1 max P.6 mmHg PA V2 mean: 75.6 cm/sec Ao V2 mean: 104.3 cm/sec LV V1 mean P.3 mmHg Ao mean P.6 mmHg LV V1 mean: 73.2 cm/sec Ao V2 VTI: 24.6 cm LV V1 VTI: 18.4 cm AV (velocity ratio): 0.75 ECHO/Echo Complete Interpretation Summary Normal LV size. The estimated ejection fraction is 40 %. Mild to moderate global left ventricular systolic dysfunction. There is mild to moderate global hypokinesis of the left ventricle. Ordering Physician: Fiordaliza Nichols Referring Physician: Michelle Thompson: Melinda Villa Performed By: Venita Mcgrath RDCS, RVT
--- NOTE | 2022-08-16 19:06 | CT_ITS ---
STUDY: CTA CHEST REASON FOR EXAM: Female, 31 years old. Shortness of breath RADIATION DOSAGE (If Supplied By Facility): CTDIvol = ( 19.70 ) mGy, DLP = ( 557.98 ) mGycm TECHNIQUE: The examination was performed with the intravenous administration of IV 100mL Isovue-370. Post-processing of the angiographic images was performed, with multiplanar reformation and 3D reconstruction. Individualized dose optimization techniques were used for this CT. COMPARISON: Chest x-ray FINDINGS: Normal enhancement of the main pulmonary artery and right and left pulmonary arteries. Normal enhancement of the bilateral peripheral pulmonary arteries. There is no demonstrated pulmonary embolism. Normal thoracic aorta and visualized great vessels. There is no demonstrated aortic dissection. Normal heart and pericardium. Normal mediastinum. Normal hilar regions. Normal visualized trachea and bronchi. The lungs are well expanded. There are moderate groundglass increased opacities of the lungs. There is lower lung airspace consolidation. There are moderate bilateral pleural effusions. Normal chest wall structures. Normal osseous structures. Normal visualized upper abdomen. CT/CTA Chest W/WO Contrast IMPRESSION: CTA chest examination, without a demonstrated pulmonary embolism or arterial dissection. Bilateral pneumonia or edema and pleural effusions. Electronically Signed: Davi Thompson MD at 22:38 EDT ,
[2022-08-16 19:08] LABS: ALB/GLOB Ratio 0.4 RATIO (0.9-2.4); AST(SGOT) 15 U/L (15-37); Alanine Aminotransfer ALT/SGPT 14 U/L (13-56); Albumin, Serum 1.9 g/dL (3.2-5.0); Alkaline Phosphatase 202 U/L (45-117); Anion Gap 10 (5-15); BUN 5 mg/dL (7-18); BUN/Creat Ratio 7.9 RATIO (10-20); Calcium,Total 8.8 mg/dL (8.5-10.1); Chloride 102 mmol/L (98-107); Creatinine, Serum 0.63 mg/dL (0.55-1.02); EST Glomerular Filtration Rate 117 mL/min (>60); Est Glom Filt Rate - Afr Amer 142 mL/min (>60); Estimated Creatinine Clearance 108.01 ml/min; Globulin 4.3 g/dL (2.2-4.2); Glucose 102 mg/dL (74-106); Potassium 4.2 mmol/L (3.5-5.1); Protein, Total 6.2 g/dL (6.4-8.2); Sodium Level 131 mmol/L (136-145)
[2022-08-16 19:13] LABS: Differential Comment SCANNED
[2022-08-16 20:32] LABS: BNP,B-Type NATRIURETIC PEPTIDE 1351.4 pg/mL (0-100)
[2022-08-16] MEDS: Enoxaparin 40 MG/0.4 ML Syringe SC (21:07)
[2022-08-16 21:53] LABS: Troponin-I HS 149 pg/mL (3.0-54.0)
--- NOTE | 2022-08-16 22:11 | PCM.HOSP.N ---
Hospitalist Note BNP markedly elevated. Cardiac enzymes ordered and cycled. Initial with mild elevation. Echo already ordered. Convert to therapeutic Lovenox 120 BID and Cardiology has been consulted.
[2022-08-17] VITALS (18 sets, daily range): BP systolic 121–148; BP diastolic 75–107; PULSE 72–105; RESP 15–21; TEMP 36.7–37; O2SAT 91–100
[2022-08-17 00:05] LABS: Troponin-I HS 146 pg/mL (3.0-54.0)
[2022-08-17 03:34] LABS: Hematocrit 30.2 % (37-47); Hemoglobin 9.9 g/dL (12.0-15.0); Mean Corp Hgb Conc 32.8 g/dL (32-36); Mean Corpuscular Hgb 28.8 pg (27.0-32.0); Mean Corpuscular Volume 87.8 fL (81-99); Mean Platelet Vol. 11.2 fl (6.2-12.0); Platelet Count 289 K/mm3 (150-450); RBC Distribution Width CV 13.2 % (11.6-14.6); RBC Distribution Width SD 41.3 fl (35.1-43.9); Red Blood Count 3.44 M/mm3 (4.2-5.4)
[2022-08-17 03:52] LABS: Troponin-I HS 96 pg/mL (3.0-54.0)
[2022-08-17 04:03] LABS: Anion Gap 9 (5-15); BUN 9 mg/dL (7-18); BUN/Creat Ratio 15.1 RATIO (10-20); Calcium,Total 8.6 mg/dL (8.5-10.1); Chloride 104 mmol/L (98-107); EST Glomerular Filtration Rate 125 mL/min (>60); Est Glom Filt Rate - Afr Amer 152 mL/min (>60); Estimated Creatinine Clearance 113.41 ml/min; Glucose 95 mg/dL (74-106); Potassium 3.6 mmol/L (3.5-5.1); Sodium Level 136 mmol/L (136-145); Thyroid Stim Hormone (TSH) 1.69 uIU/mL (0.358-3.74)
[2022-08-17] MEDS: Acetaminophen 500 MG Tablet 1000 MG PO ×3 (06:03→18:24)
[2022-08-17] MEDS: Furosemide 40 MG/4 ML Vial IV (06:04)
--- NOTE | 2022-08-17 07:14 | EX.PCM.CONCC ---
Assessment & Plan Assessment/Plan (1) Acute respiratory failure with hypoxia: (2) Pulmonary edema: PLAN: Plan RECOMMENDATIONS: 1. Wean supplemental oxygen to maintain saturations at or above 90%. 2. Agree with echocardiogram to evaluate for peripartum cardiomyopathy. 3. Continue diuretics as tolerated by hemodynamics and renal function. 4. Encourage incentive spirometer use and mobilize patient as tolerated. IMPRESSIONS: 1. Acute hypoxemic respiratory failure Clinical concern for flash pulmonary edema in setting of preeclampsia. The patient responded clinically to IV diuretics and noninvasive positive pressure ventilatory support. Echocardiogram is currently pending to evaluate for peripartum cardiomyopathy. Blood pressures are under control at the current time. For now, we will continue to wean supplemental oxygen to maintain saturations at or above 90%. The patient will be continued on diuretic therapy as tolerated by hemodynamics and renal function. 2. /preeclampsia The patient is doing well clinically. Continue as needed labetalol and routine care per SOFTWARE ADMINISTRATOR. 3. History of seasonal allergic rhinitis/depression/GERD Complicates care, management, recovery and prognosis. Okay to continue home medications as indicated. This note was generated with [employer] dictation software. It may contain incorrect words, spelling, and punctuation that were not noted in checking the note before signing. HPI Consult Data Date of Consult: 08/17/22 HPI Narrative Reason for Consultation: Acute respiratory failure HPI Narrative: The patient is a 31-year-old female, with a history as outlined below, who presented to the hospital on August 16 for secondary to preeclampsia, under the care of Dr. Thompson. The patient denied any pre-existing cardiac or pulmonary history. She denied any history of VTE. On the evening of August 16, the patient underwent low transverse section with bilateral salpingectomy. Estimated blood loss was 600 mL. No procedural complications were noted. Shortly after her procedure completion, the patient developed severe shortness of breath and hypoxemia. A rapid response team was called. The patient was notably anxious during her initial evaluation with chest imaging demonstrated pulmonary vascular congestion. A follow-up CTA chest showed no evidence for pulmonary embolism, but did demonstrate stigmata of pulmonary edema and small pleural effusions. The patient was ultimately transferred to the medical intensive care unit, where she received scheduled IV Lasix and was placed on BiPAP therapy overnight. This morning, the patient reported significant improvement in her breathing quality. She is currently maintaining appropriate saturations in the high 90s on 2 L/min via nasal cannula. Her chemistry profile this morning is unremarkable, with a normal creatinine. [facility] Medical History Abscess of left thigh Family history of hearing loss at age younger than 7 years Home Medications escitalopram oxalate 10 mg tablet (Lexapro) 10 mg PO DAILY anxiety 02/11/22 [History Last Taken Unknown] omeprazole 20 mg capsule,delayed release 20 mg PO DAILY heartburn 02/11/22 [History Last Taken Unknown] vitamins no.163-iron bis-gly 20 mg-folate no.10 1 mg tablet (PNV Tabs 20-1) 1 tab PO DAILY 02/11/22 [History Last Taken Unknown] fluticasone propionate 50 mcg/actuation nasal spray,suspension (Flonase Allergy Relief) 2 spray intranasal DAILY sinus 08/09/22 [History Last Taken Unknown] metformin 500 mg PO.IVFORM BID insulin resistance 08/09/22 [History Last Taken Unknown] Allergy/AdvReac Type Severity Reaction Status Date / Time No Known Allergies Allergy Verified 08/16/22 05:55 Family History Mother Breast cancer, Onset Age: 61 Not genetic Grandmother Breast cancer, Onset Age: 65 Maternal Surgical History History of removal of cyst Hx of wisdom tooth extraction Previous section Social History adopted: No household members: spouse and children housing: house number of children: 1 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 occupational exposures/hazards: No pets and animals: Yes (Not managing litterbox) pets and animals: cat(s) history of recent travel: No sexually active: Yes Smoking Status: Never smoker alcohol intake: former details: socially prior to substance use type: does not use well-balanced diet: daily or most days caffeine: No eating out: 1-3 times/week during the past year weight has: decreased > 10 lbs what type of physical activity do you participate in: none juan/pentecostalism: Non-Anabaptism/Independent seatbelt use: always do you feel safe at home: Yes additional social history: - Lyle LOO Constitutional Constitutional: Denies chills, fatigue or fever(s) Eyes Eyes: Denies blurry vision or change in vision ENT HEENT: Denies dizziness, dysphagia, epistaxis or headache(s) Cardiovascular Cardiovascular: Reports dyspnea and edema Respiratory/Chest Respiratory/Chest: Reports dyspnea; Denies chest tightness or cough Gastrointestinal Gastrointestinal: Denies abdominal pain, diarrhea, nausea or vomiting Genitourinary Genitourinary: Denies difficulty urinating Musculoskeletal Musculoskeletal: Denies arthralgias, back pain or joint pain Integumentary Integumentary: Denies lesions, rash or skin ulcer Neurologic Neurologic: Denies abnormal gait, abnormal speech or confusion Psychiatric Psychiatric: Denies anxiety Endocrine Endocrinology: Denies fatigue Hematologic/Lymphatic Hematologic/Lymphatic: Denies easy bleeding or easy bruising Physical Exam Const alert and no apparent distress General Appearance: cooperative HEENT normocephalic and head/scalp atraumatic Eyes PERRL, EOMs intact bilaterally and conjunctivae normal Neck supple General: trachea midline Chest inspection of chest normal Resp normal respiratory effort Auscultation: Negative for rales, rhonchi or wheezes Cardio regular rate and regular rhythm GI normal to inspection, nondistended, normoactive bowel sounds GI Narrative: incision site intact Extremity Extremity Narrative: Trace lower extremity edema Skin no rashes or lesions noted Neuro oriented x3, CN's II-XII intact bilaterally, moves all extremities and no focal motor deficits Psych cooperative and affect normal Lab / Micro Data Result Diagrams: 08/17/22 03:25 08/17/22 03:25 Labs: Laboratory Results - last 24 hr 08/16/22 05:55: Blood Type A POSITIVE, Antibody Screen NEGATIVE 08/16/22 05:55: Syphilis Total Ab Non-reactive 08/16/22 18:30: Sodium 131 L, Potassium 4.2, Chloride 102, Carbon Dioxide 19.0 L, Anion Gap 10, BUN 5 L, Creatinine 0.63, Estim Creat Clear Calc 108.01, Est GFR (MDRD) Af Amer 142, Est GFR (MDRD) Non-Af 117, BUN/Creatinine Ratio 7.9 L, Glucose 102, Calcium 8.8, Total Bilirubin 0.20, AST 15, ALT 14, Alkaline Phosphatase 202 H, Total Protein 6.2 L, Albumin 1.9 L, Globulin 4.3 H, Albumin/Globulin Ratio 0.4 L 08/16/22 18:30: WBC 28.1 H, RBC 4.36, Hgb 12.3, Hct 38.1, MCV 87.4, MCH 28.2, MCHC 32.3, RDW Std Deviation 41.7, RDW Coeff of Seema 13.2, Plt Count 454 H, MPV 11.2, Immature Gran % (Auto) 0.800, Neut % (Auto) 76.5 H, Lymph % (Auto) 18.5 L, [place] % (Auto) 3.9, Eos % (Auto) 0.1, Baso % (Auto) 0.2, Absolute Neuts (auto) 21.5 H, Absolute Lymphs (auto) 5.20 H, Nucleated RBC % 0, Differential Comment SCANNED 08/16/22 18:30: B-Natriuretic Peptide 1351.4 H 08/16/22 21:15: Troponin I High Sens 149 H* 08/16/22 23:00: Troponin I High Sens 146 H* 08/17/22 03:25: WBC 15.0 H, RBC 3.44 L, Hgb 9.9 L, Hct 30.2 L, MCV 87.8, MCH 28.8, MCHC 32.8, RDW Std Deviation 41.3, RDW Coeff of Seema 13.2, Plt Count 289, MPV 11.2 08/17/22 03:25: Troponin I High Sens 96 H 08/17/22 03:25: Sodium 136, Potassium 3.6, Chloride 104, Carbon Dioxide 23.0, Anion Gap 9, BUN 9, Creatinine 0.60, Estim Creat Clear Calc 113.41, Est GFR (MDRD) Af Amer 152, Est GFR (MDRD) Non-Af 125, BUN/Creatinine Ratio 15.1, Glucose 95, Calcium 8.6, TSH 1.69 Radiology Impression Chest X-Ray 08/16/22 18:30 IMPRESSION: Right greater than left pneumonia or edema. Electronically Signed: Davi Thompson MD at 19:34 EDT , Chest CTA 08/16/22 19:06 IMPRESSION: CTA chest examination, without a demonstrated pulmonary embolism or arterial dissection. Bilateral pneumonia or edema and pleural effusions. Electronically Signed: Davi Thompson MD at 22:38 EDT Reading Location ID and State: [id number] [place] [address] , Service support , Charges/Coding Visit Charges Inpatient E&M: 96094 Init Hosp L3
--- NOTE | 2022-08-17 07:26 | PCM.PN.HOSP ---
Reason for Visit Reason for Visit: Diagnoses Leiomyoma of uterus, unspecified (08/16/22) Depression, unspecified (08/16/22) Anxiety disorder, unspecified (08/16/22) Acute respiratory failure with hypoxia (08/16/22) Supervision of high risk , unspecified, unspecified trimester (08/16/22) Unspecified pre-eclampsia, unspecified trimester (08/16/22) Unspecified maternal hypertension, unspecified trimester (08/16/22) Maternal care for benign tumor of corpus uteri, unspecified trimester (08/16/22) Encounter for delivery without indication (08/16/22) Obesity complicating , unspecified trimester (08/16/22) Abnormal glucose complicating (08/16/22) Dyspnea, unspecified (08/16/22) Encounter for sterilization (08/16/22) 36 weeks gestation of (08/16/22) History of uterine scar from previous surgery (08/16/22) Subjective Subjective Feeling better. Breathing well. Able to be taken off BiPAP and placed on nasal cannula. Objective Data Objective Data Vital Signs: Vital Signs Temp Pulse Resp BP Pulse Ox O2 Del Method O2 Flow Rate 37.0 C 77 20 H 134/82 H 97 Nasal Cannula 2 08/17/22 04:00 08/17/22 06:00 08/17/22 06:00 08/17/22 06:00 08/17/22 06:00 08/17/22 06:00 08/17/22 06:00 FiO2 35 08/16/22 20:23 Oxygen Flow Rate (L/min) 2 Oxygen Delivery Method Nasal Cannula Weight: 119.295 kg Body Mass Index (BMI) 46.5 Intake & Output: Intake and Output for Last 24 Hours 08/15/22 08/16/22 08/17/22 23:59 23:59 23:59 Intake Total 3910.48 / 3910.48 50 / 50 Output Total 4000 / 4300 1000 / 1000 Balance -89.52 / -389.52 -950 / -950 Lab / Micro Data Result Diagrams: 08/17/22 03:25 08/17/22 03:25 Labs: Laboratory Results - last 24 hr 08/16/22 05:55: Blood Type A POSITIVE, Antibody Screen NEGATIVE 08/16/22 05:55: Syphilis Total Ab Non-reactive 08/16/22 18:30: Sodium 131 L, Potassium 4.2, Chloride 102, Carbon Dioxide 19.0 L, Anion Gap 10, BUN 5 L, Creatinine 0.63, Estim Creat Clear Calc 108.01, Est GFR (MDRD) Af Amer 142, Est GFR (MDRD) Non-Af 117, BUN/Creatinine Ratio 7.9 L, Glucose 102, Calcium 8.8, Total Bilirubin 0.20, AST 15, ALT 14, Alkaline Phosphatase 202 H, Total Protein 6.2 L, Albumin 1.9 L, Globulin 4.3 H, Albumin/Globulin Ratio 0.4 L 08/16/22 18:30: WBC 28.1 H, RBC 4.36, Hgb 12.3, Hct 38.1, MCV 87.4, MCH 28.2, MCHC 32.3, RDW Std Deviation 41.7, RDW Coeff of Seema 13.2, Plt Count 454 H, MPV 11.2, Immature Gran % (Auto) 0.800, Neut % (Auto) 76.5 H, Lymph % (Auto) 18.5 L, [place] % (Auto) 3.9, Eos % (Auto) 0.1, Baso % (Auto) 0.2, Absolute Neuts (auto) 21.5 H, Absolute Lymphs (auto) 5.20 H, Nucleated RBC % 0, Differential Comment SCANNED 08/16/22 18:30: B-Natriuretic Peptide 1351.4 H 08/16/22 21:15: Troponin I High Sens 149 H* 08/16/22 23:00: Troponin I High Sens 146 H* 08/17/22 03:25: WBC 15.0 H, RBC 3.44 L, Hgb 9.9 L, Hct 30.2 L, MCV 87.8, MCH 28.8, MCHC 32.8, RDW Std Deviation 41.3, RDW Coeff of Seema 13.2, Plt Count 289, MPV 11.2 08/17/22 03:25: Troponin I High Sens 96 H 08/17/22 03:25: Sodium 136, Potassium 3.6, Chloride 104, Carbon Dioxide 23.0, Anion Gap 9, BUN 9, Creatinine 0.60, Estim Creat Clear Calc 113.41, Est GFR (MDRD) Af Amer 152, Est GFR (MDRD) Non-Af 125, BUN/Creatinine Ratio 15.1, Glucose 95, Calcium 8.6, TSH 1.69 Radiography Diagnostic Testing: Radiology Impression Chest X-Ray 08/16/22 18:30 IMPRESSION: Right greater than left pneumonia or edema. Electronically Signed: Davi Thompson MD at 19:34 EDT Reading Location ID and State: [facility] / [place] , Service support , Chest CTA 08/16/22 19:06 IMPRESSION: CTA chest examination, without a demonstrated pulmonary embolism or arterial dissection. Bilateral pneumonia or edema and pleural effusions. Electronically Signed: Davi Thompson MD at 22:38 EDT , Physical Exam Const alert and no apparent distress HEENT head/scalp atraumatic and moist oral mucous membranes Resp normal respiratory effort, no retractions, no use of accessory muscles and clear to auscultation bilaterally Cardio regular rate, regular rhythm, S1 normal heart sound and S2 normal heart sound GI normal to inspection, nondistended, normoactive bowel sounds, soft to palpation, non-tender and non-distended Extremity Extremity Narrative: Bilateral lower extremity edema Assessment & Plan Assessment/Plan (1) Acute respiratory failure with hypoxia: PLAN: Improved 2/2 CHF exacerbation Down to 2l/m nc CTA w/ pleural effusion, infiltrate, edema. Continue to wean oxygen as able PEP (2) CHF exacerbation: PLAN: Acute heart failure with reduced ejection fraction Echo shows an EF of 40%. Mild to moderate global left ventricular systolic dysfunction. Suspect due to related cardiomyopathy. on Furosemide cards cs (3) NSTEMI, initial episode of care: PLAN: Likely type 2 (demand ischemia from resp failure and CHF) Troponins trending down Echo pending Cards consult. (4) Pre-eclampsia: PLAN: As needed labetalol every 4 hours to keep blood pressure systolic less than 140 Per MANAGER OF FINANCIAL PLANNING: goal BP <160/110 (5) Leukocytosis: PLAN: Trending down Suspect reactive Very low suspicion for infection (6) Transaminitis: PLAN: Unclear significance Monitor PLAN: Plan mgmt per MANAGER OF FINANCIAL PLANNING Chronic conditions: GERD-Continue PPI History of insulin resistance-On metformin as an outpatient-On hold for now-Did receive steroids earlier today-Monitor blood sugars-If blood sugars elevated could consider adding SSI Seasonal allergies-Continue Flonase Depression-Continue Lexapro DVT prophylaxis: not inicated as she is anticoaugulated CODE STATUS-Full code Medically stable for transfer out of ICU. Charges/Coding Visit Charges Inpatient E&M: 91217 Subs Hosp L2
--- NOTE | 2022-08-17 07:32 | EKG12_ITS ---
Test Reason : CHF Blood Pressure : / mmHG Vent. Rate : 081 BPM Atrial Rate : 081 BPM P-R Int : 126 ms QRS Dur : 076 ms QT Int : 438 ms P-R-T Axes : 055 057 096 degrees QTc Int : 508 ms Normal sinus rhythm Nonspecific T wave abnormality Prolonged QT Abnormal ECG When compared with ECG of 16-AUG-2022 18:20, MANUAL COMPARISON REQUIRED, DATA IS UNCONFIRMED Confirmed by JALEESA TRIVEDI, WENDY ([id number]), film and video editor TAL MCCOLLUM ([id number]) on 08/17/2022 1:15:23 PM Referred By: Michelle Rodríguez Confirmed By:WENDY LAZCANO MD
--- NOTE | 2022-08-17 07:45 | PCM.CONS.C ---
Assessment & Plan Assessment/Plan (1) Pulmonary edema: PLAN: The patient presented with pulmonary edema. She has been diuresed appropriately. She is doing quite well at this time. (2) Pre-eclampsia: PLAN: Her blood pressure was noted to be mildly elevated. It is still somewhat elevated at this time. I would recommend that with a reduced ejection fraction the medication of choice should be carvedilol instead of labetalol. (3) Peripartum cardiomyopathy: PLAN: Her echocardiogram today demonstrated global left ventricular systolic dysfunction with an estimated ejection fraction of 40%. This appears to be global and may be related to peripartum cardiomyopathy. She does not have any prior risk factors. It appears that she was not hypertensive for long enough to explain this. We will recommend beta-albin with carvedilol 6.25 mg twice a day as a starting dose and titrating upwards as appropriate Close follow-up with a perinatologist and/or waste paper hammermill operator The above medication is fairly safe for breast-feeding and will be preferable to labetalol. HPI Consult Data Date of Consult: 08/17/22 HPI Narrative HPI Narrative: CHRISTA GARCIA, is a 31 F who presents for a scheduled section for preeclampsia with mild features.? Her urine protein was slightly elevated but BPs were mildly elevated in the 140s to 150s.? 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 Last night she developed acute shortness of breath with hypoxia oxygenation's in the 70s and very elevated blood pressure with systolics 170 with diastolics over 100. Rapid response was called she was noted to be in heart failure with marked tachypnea and very anxious she was given Lasix and a [place] placed Ativan given transferred to the ICU treated with BiPAP with significant diuresis. This morning she appears to be doing well. EKG demonstrated sinus rhythm with no acute changes. There was minimal troponin elevation but elevation of the natruretic peptide level. Cardiology was asked to see for further evaluation and management. [facility] Medical History Abscess of left thigh Family history of hearing loss at age younger than 7 years Home Medications escitalopram oxalate 10 mg tablet (Lexapro) 10 mg PO DAILY anxiety 02/11/22 [History Last Taken Unknown] omeprazole 20 mg capsule,delayed release 20 mg PO DAILY heartburn 02/11/22 [History Last Taken Unknown] vitamins no.163-iron bis-gly 20 mg-folate no.10 1 mg tablet (PNV Tabs 20-1) 1 tab PO DAILY 02/11/22 [History Last Taken Unknown] fluticasone propionate 50 mcg/actuation nasal spray,suspension (Flonase Allergy Relief) 2 spray intranasal DAILY sinus 08/09/22 [History Last Taken Unknown] metformin 500 mg PO.IVFORM BID insulin resistance 08/09/22 [History Last Taken Unknown] Allergy/AdvReac Type Severity Reaction Status Date / Time No Known Allergies Allergy Verified 08/16/22 05:55 Family History Mother Breast cancer, Onset Age: 61 Not genetic Grandmother Breast cancer, Onset Age: 65 Maternal Surgical History History of removal of cyst Hx of wisdom tooth extraction Previous section Social History adopted: No household members: spouse and children housing: house number of children: 1 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 occupational exposures/hazards: No pets and animals: Yes (Not managing litterbox) pets and animals: cat(s) history of recent travel: No sexually active: Yes Smoking Status: Never smoker alcohol intake: former details: socially prior to substance use type: does not use well-balanced diet: daily or most days caffeine: No eating out: 1-3 times/week during the past year weight has: decreased > 10 lbs what type of physical activity do you participate in: none juan/uatsdin: Non-Rastafarian/Independent seatbelt use: always do you feel safe at home: Yes additional social history: - Lyle Marie Risk Stratification Risk Stratification Applicable: No Objective Data Vital Signs: Vital Signs Temp Pulse Resp BP Pulse Ox O2 Del Method O2 Flow Rate 98.6 F 93 21 H 140/96 H 97 Nasal Cannula 2 08/17/22 04:00 08/17/22 07:00 08/17/22 07:00 08/17/22 07:00 08/17/22 07:00 08/17/22 07:00 08/17/22 07:00 FiO2 35 08/16/22 20:23 Oxygen Flow Rate (L/min) 2 Oxygen Delivery Method Nasal Cannula Weight: 263 lb Body Mass Index (BMI) 46.5 Intake & Output: Intake and Output for Last 24 Hours 08/15/22 08/16/22 08/17/22 23:59 23:59 23:59 Intake Total 3910.48 / 3910.48 50 / 50 Output Total 4000 / 4300 1000 / 1000 Balance -89.52 / -389.52 -950 / -950 Lab / Micro Data Result Diagrams: 08/17/22 03:25 08/17/22 03:25 Labs: Laboratory Results - last 24 hr 08/16/22 05:55: Blood Type A POSITIVE, Antibody Screen NEGATIVE 08/16/22 05:55: Syphilis Total Ab Non-reactive 08/16/22 18:30: Sodium 131 L, Potassium 4.2, Chloride 102, Carbon Dioxide 19.0 L, Anion Gap 10, BUN 5 L, Creatinine 0.63, Estim Creat Clear Calc 108.01, Est GFR (MDRD) Af Amer 142, Est GFR (MDRD) Non-Af 117, BUN/Creatinine Ratio 7.9 L, Glucose 102, Calcium 8.8, Total Bilirubin 0.20, AST 15, ALT 14, Alkaline Phosphatase 202 H, Total Protein 6.2 L, Albumin 1.9 L, Globulin 4.3 H, Albumin/Globulin Ratio 0.4 L 08/16/22 18:30: WBC 28.1 H, RBC 4.36, Hgb 12.3, Hct 38.1, MCV 87.4, MCH 28.2, MCHC 32.3, RDW Std Deviation 41.7, RDW Coeff of Seema 13.2, Plt Count 454 H, MPV 11.2, Immature Gran % (Auto) 0.800, Neut % (Auto) 76.5 H, Lymph % (Auto) 18.5 L, [place] % (Auto) 3.9, Eos % (Auto) 0.1, Baso % (Auto) 0.2, Absolute Neuts (auto) 21.5 H, Absolute Lymphs (auto) 5.20 H, Nucleated RBC % 0, Differential Comment SCANNED 08/16/22 18:30: B-Natriuretic Peptide 1351.4 H 08/16/22 21:15: Troponin I High Sens 149 H* 08/16/22 23:00: Troponin I High Sens 146 H* 08/17/22 03:25: WBC 15.0 H, RBC 3.44 L, Hgb 9.9 L, Hct 30.2 L, MCV 87.8, MCH 28.8, MCHC 32.8, RDW Std Deviation 41.3, RDW Coeff of Seema 13.2, Plt Count 289, MPV 11.2 08/17/22 03:25: Troponin I High Sens 96 H 08/17/22 03:25: Sodium 136, Potassium 3.6, Chloride 104, Carbon Dioxide 23.0, Anion Gap 9, BUN 9, Creatinine 0.60, Estim Creat Clear Calc 113.41, Est GFR (MDRD) Af Amer 152, Est GFR (MDRD) Non-Af 125, BUN/Creatinine Ratio 15.1, Glucose 95, Calcium 8.6, TSH 1.69 Cardiology Labs/Tests 08/16/22 18:30: Sodium 131 L, Potassium 4.2, Chloride 102, Carbon Dioxide 19.0 L, Anion Gap 10, BUN 5 L, Creatinine 0.63, Est GFR (MDRD) Af Amer 142, Est GFR (MDRD) Non-Af 117, BUN/Creatinine Ratio 7.9 L, Glucose 102, Calcium 8.8, Total Bilirubin 0.20 08/16/22 18:30: WBC 28.1 H, RBC 4.36, Hgb 12.3, Hct 38.1, MCV 87.4, MCH 28.2, MCHC 32.3, Plt Count 454 H, MPV 11.2, Immature Gran % (Auto) 0.800, Neut % (Auto) 76.5 H, Lymph % (Auto) 18.5 L, [place] % (Auto) 3.9, Eos % (Auto) 0.1, Baso % (Auto) 0.2, Absolute Neuts (auto) 21.5 H, Nucleated RBC % 0 08/16/22 18:30: B-Natriuretic Peptide 1351.4 H 08/17/22 03:25: WBC 15.0 H, RBC 3.44 L, Hgb 9.9 L, Hct 30.2 L, MCV 87.8, MCH 28.8, MCHC 32.8, Plt Count 289, MPV 11.2 08/17/22 03:25: Sodium 136, Potassium 3.6, Chloride 104, Carbon Dioxide 23.0, Anion Gap 9, BUN 9, Creatinine 0.60, Est GFR (MDRD) Af Amer 152, Est GFR (MDRD) Non-Af 125, BUN/Creatinine Ratio 15.1, Glucose 95, Calcium 8.6 Rhythm: EKG: ECHO: Stress Test: Cardiac Cath: PCI: CT Surgery: Holter monitor: EPS: PPM: CXR: Chest CT Scan: Radiography Diagnostic Testing: Radiology Impression Chest X-Ray 08/16/22 18:30 IMPRESSION: Right greater than left pneumonia or edema. Electronically Signed: Davi Thompson MD at 19:34 EDT , Chest CTA 08/16/22 19:06 IMPRESSION: CTA chest examination, without a demonstrated pulmonary embolism or arterial dissection. Bilateral pneumonia or edema and pleural effusions. Electronically Signed: Davi Thompson MD at 22:38 EDT ,
--- NOTE | 2022-08-17 08:48 | PN.OBGYN_ITS ---
Subjective Subjective Patient doing well much better, breathing easily occasional cough Tolerating PO. catheter in. Denies chest pain, calf pain/swelling, fevers, chills, lightheadedness. Objective Data Objective Data Vital Signs: Vital Signs Temp Pulse Resp BP Pulse Ox O2 Del Method O2 Flow Rate 98.6 F 93 21 H 140/96 H 97 Nasal Cannula 2 08/17/22 04:00 08/17/22 07:00 08/17/22 07:00 08/17/22 07:00 08/17/22 07:00 08/17/22 07:46 08/17/22 07:46 FiO2 35 08/16/22 20:23 Oxygen Flow Rate (L/min) 2 Oxygen Delivery Method Nasal Cannula Weight: 263 lb Body Mass Index (BMI) 46.5 Intake & Output: Intake and Output for Last 24 Hours 08/15/22 08/16/22 08/17/22 23:59 23:59 23:59 Intake Total 3910.48 / 3910.48 50 / 50 Output Total 4000 / 4300 1000 / 1000 Balance -89.52 / -389.52 -950 / -950 Lab / Micro Data Result Diagrams: 08/17/22 03:25 08/17/22 03:25 Labs: Laboratory Results - last 24 hr 08/16/22 18:30: Sodium 131 L, Potassium 4.2, Chloride 102, Carbon Dioxide 19.0 L , Anion Gap 10, BUN 5 L, Creatinine 0.63, Estim Creat Clear Calc 108.01, Est GFR (MDRD) Af Amer 142, Est GFR (MDRD) Non-Af 117, BUN/Creatinine Ratio 7.9 L, Glucose 102, Calcium 8.8, Total Bilirubin 0.20, AST 15, ALT 14, Alkaline Phosphatase 202 H, Total Protein 6.2 L, Albumin 1.9 L, Globulin 4.3 H, Albumin/Globulin Ratio 0.4 L 08/16/22 18:30: WBC 28.1 H, RBC 4.36, Hgb 12.3, Hct 38.1, MCV 87.4, MCH 28.2, MCHC 32.3, RDW Std Deviation 41.7, RDW Coeff of Seema 13.2, Plt Count 454 H, MPV 11.2, Immature Gran % (Auto) 0.800, Neut % (Auto) 76.5 H, Lymph % (Auto) 18.5 L, [place] % (Auto) 3.9, Eos % (Auto) 0.1, Baso % (Auto) 0.2, Absolute Neuts (auto) 21.5 H, Absolute Lymphs (auto) 5.20 H, Nucleated RBC % 0, Differential Comment SCANNED 08/16/22 18:30: B-Natriuretic Peptide 1351.4 H 08/16/22 21:15: Troponin I High Sens 149 H* 08/16/22 23:00: Troponin I High Sens 146 H* 08/17/22 03:25: WBC 15.0 H, RBC 3.44 L, Hgb 9.9 L, Hct 30.2 L, MCV 87.8, MCH 28.8, MCHC 32.8, RDW Std Deviation 41.3, RDW Coeff of Seema 13.2, Plt Count 289, MPV 11.2 08/17/22 03:25: Troponin I High Sens 96 H 08/17/22 03:25: Sodium 136, Potassium 3.6, Chloride 104, Carbon Dioxide 23.0, Anion Gap 9, BUN 9, Creatinine 0.60, Estim Creat Clear Calc 113.41, Est GFR (MDRD) Af Amer 152, Est GFR (MDRD) Non-Af 125, BUN/Creatinine Ratio 15.1, Glucose 95, Calcium 8.6, TSH 1.69 Radiography Diagnostic Testing: Radiology Impression Chest X-Ray 08/16/22 18:30 IMPRESSION: Right greater than left pneumonia or edema. Electronically Signed: Davi Thompson MD at 19:34 EDT , Chest CTA 08/16/22 19:06 IMPRESSION: CTA chest examination, without a demonstrated pulmonary embolism or arterial dissection. Bilateral pneumonia or edema and pleural effusions. Electronically Signed: Davi Thompson MD at 22:38 EDT , ROS Constitutional Constitutional: Reports systems reviewed and no addt'l complaints, except as documented Cardiovascular Cardiovascular: Reports systems reviewed and no addt'l complaints, except as documented Respiratory/Chest Respiratory/Chest: Reports systems reviewed and no addt'l complaints, except as documented Gastrointestinal Gastrointestinal: Reports systems reviewed and no addt'l complaints, except as documented Physical Exam Const alert, oriented x3 and no apparent distress HEENT Head and Scalp: atraumatic Resp normal respiratory effort Auscultation: crackles localized (AT BASES) GI soft to palpation and non-tender Inspection: incision intact, healing well and drainage (none) Bimanual Exam - Vag & Uterus: uterus non-tender Uterus Palpation: uterus fundus firm (below Umbilicus) Assessment & Plan (1) Peripartum cardiomyopathy: (2) Pulmonary edema: (3) Pre-eclampsia: COMMENT: s/p delivery, cbc cmp WNL preop, mild bps initially no anti HTN needed, given IV labetalol due acute dyspnea episode due to severe elevations (4) delivery delivered: COMMENT: RLTCS BS boy [place] 38 preeclampsia (5) Acute dyspnea: COMMENT: suspect flash pulmonary edema- giving IV lasix, will get CT chest and echo, EKG done. in ICU overnight for support PLAN: Plan appreciate critical care and pulmonary consultation. echo done and recommend beta albin. caridology cleared for transfer to floor this afternoon.
[2022-08-17] MEDS: Enoxaparin 120 MG/0.8 ML Syringe SC (09:23)
[2022-08-17] MEDS: oxyCODONE 5 MG Tablet PO ×3 (09:23→18:26)
[2022-08-17] MEDS: Escitalopram Oxalate 10 MG Tablet PO (09:30)
[2022-08-17] MEDS: Senna/Docusate Sodium 1 Tablet PO (09:30)
[2022-08-17 11:43] LABS: AST(SGOT) 18 U/L (15-37); Alanine Aminotransfer ALT/SGPT 12 U/L (13-56); Albumin, Serum 1.6 g/dL (3.2-5.0); Alkaline Phosphatase 157 U/L (45-117); Bilirubin, Direct 0.06 mg/dL (0.00-0.30); Globulin 3.6 g/dL (2.2-4.2); Protein, Total 5.2 g/dL (6.4-8.2)
[2022-08-17] MEDS: Carvedilol 6.25 MG Tablet PO ×2 (11:51→21:56)
[2022-08-17] MEDS: cycloBENZAPRine HCl 10 MG Tablet PO (13:05)
--- NOTE | 2022-08-17 14:20 | CASEMGMT ---
Social Work Labor and Delivery Unit ? Summary:?Sw met with patient to provide support and assess for needs. ? Assessment:??Sw presented to bedside, reintroduced self to patient and explained sw role. Sw empathized with patient due to medical complications she experienced following delivery. MOB expressed appreciation for sw meeting with her. MOB stated that she is in better spirits after getting to see baby while in ICU. MOB states that she will be back in room later today. - Sw assessed for any needs or concerns, MOB denied. - Sw encouraged MOB to rest while she can and to ask for sw should any concerns or needs arise. ? Plan:??Sw continue to provide support throughout admission and provide linkage to community agencies as necessary. ? No other services requested or indicated. Jonathan Palmer, SNOW SHOVELER, HEAD OF MARKETING ANALYTICS
--- NOTE | 2022-08-17 17:51 | PCM.PN.BLA ---
Progress Note doing well improving, breathing well, catheter out. transferred to floor. reviewed case with cardiology. reviewed details with patient at present.
[2022-08-17] MEDS: Naproxen 500 MG Tablet PO (19:55)
[2022-08-17] MEDS: Enoxaparin 40 MG/0.4 ML Syringe SC (21:56)
[2022-08-17] MEDS: 0.9% Saline Lock 10 ML Syringe IV (21:56)
[2022-08-18] VITALS (7 sets, daily range): BP systolic 125–146; BP diastolic 79–105; PULSE 86–106; RESP 16–18; TEMP 36.2–36.6; O2SAT 93–99
[2022-08-18] MEDS: Acetaminophen 500 MG Tablet 1000 MG PO ×4 (00:23→18:06)
[2022-08-18 07:07] LABS: Absolute Lymphocyte Count 4.09 X10^3/uL (0.83-4.51); Absolute Neutrophil Count 5.9 X10^3/uL (2.0-7.7); Basophil# 0.05 X10^3/uL; Basophil% 0.4 % (0-1); Eosinophil# 0.12 X10^3/uL; Eosinophils% 1.1 % (0-5); Hematocrit 31.9 % (37-47); Hemoglobin 10.2 g/dL (12.0-15.0); Lymphocyte # 4.09 X10^3/ul (0.83-4.51); Lymphocyte % 36.6 % (19-41); Mean Corpuscular Hgb 28.3 pg (27.0-32.0); Mean Corpuscular Volume 88.4 fL (81-99); Mean Platelet Vol. 11.4 fl (6.2-12.0); Monocyte# 0.95 X10^3/uL; Monocyte% 8.5 % (0-10); NRBC Flagged by Analyzer 0 % (0-5); Neutrophil # 5.91 X10^3/uL (2.7-7.7); Neutrophil % 52.9 % (47-70); Platelet Count 321 K/mm3 (150-450); RBC Distribution Width CV 13.7 % (11.6-14.6); RBC Distribution Width SD 43.8 fl (35.1-43.9); Red Blood Count 3.61 M/mm3 (4.2-5.4); White Blood Count 11.2 K/mm3 (4.4-11.0)
[2022-08-18] MEDS: Naproxen 500 MG Tablet PO ×3 (07:36→20:08)
--- NOTE | 2022-08-18 08:15 | PCM.PN.HOSP ---
Reason for Visit Reason for Visit: Diagnoses Leiomyoma of uterus, unspecified (08/16/22) Elevated white blood cell count, unspecified (08/16/22) Depression, unspecified (08/16/22) Anxiety disorder, unspecified (08/16/22) Non-ST elevation (NSTEMI) myocardial infarction (08/16/22) Heart failure, unspecified (08/16/22) Chronic pulmonary edema (08/16/22) Acute respiratory failure with hypoxia (08/16/22) Supervision of high risk , unspecified, unspecified trimester (08/16/22) Unspecified pre-eclampsia, unspecified trimester (08/16/22) Unspecified maternal hypertension, unspecified trimester (08/16/22) Maternal care for benign tumor of corpus uteri, unspecified trimester (08/16/22) Encounter for delivery without indication (08/16/22) Peripartum cardiomyopathy (08/16/22) Obesity complicating , unspecified trimester (08/16/22) Abnormal glucose complicating (08/16/22) Dyspnea, unspecified (08/16/22) Elevation of levels of liver transaminase levels (08/16/22) Encounter for sterilization (08/16/22) 36 weeks gestation of (08/16/22) History of uterine scar from previous surgery (08/16/22) Subjective Subjective Feels well. No SOB. Objective Data Objective Data Vital Signs: Vital Signs Temp Pulse Resp BP Pulse Ox O2 Del Method O2 Flow Rate 36.2 C L 95 16 141/100 H 99 Room Air 2 08/18/22 00:01 08/18/22 00:01 08/18/22 00:01 08/18/22 00:01 08/18/22 00:01 08/18/22 00:01 08/17/22 10:00 FiO2 35 08/16/22 20:23 Oxygen Flow Rate (L/min) 2 Oxygen Delivery Method Room Air Weight: 119.295 kg Body Mass Index (BMI) 46.5 Intake & Output: Intake and Output for Last 24 Hours 08/16/22 08/17/22 08/18/22 23:59 23:59 23:59 Intake Total 3910.48 / 3910.48 50 / 50 Output Total 4000 / 4300 7950 / 7950 Balance -89.52 / -389.52 -7900 / -7900 Lab / Micro Data 08/18/22 06:04 08/17/22 03:25 Labs: Laboratory Results - last 24 hr 08/17/22 03:25: Total Bilirubin 0.20, Direct Bilirubin 0.06, AST 18, ALT 12 L, Alkaline Phosphatase 157 H, Total Protein 5.2 L, Albumin 1.6 L, Globulin 3.6 08/18/22 06:04: WBC 11.2 H, RBC 3.61 L, Hgb 10.2 L, Hct 31.9 L, MCV 88.4, MCH 28.3, MCHC 32.0, RDW Std Deviation 43.8, RDW Coeff of Seema 13.7, Plt Count 321, MPV 11.4, Immature Gran % (Auto) 0.500, Neut % (Auto) 52.9, Lymph % (Auto) 36.6, [place] % (Auto) 8.5, Eos % (Auto) 1.1, Baso % (Auto) 0.4, Absolute Neuts (auto) 5.9, Absolute Lymphs (auto) 4.09, Nucleated RBC % 0 Radiography Diagnostic Testing: Radiology Impression Echocardiogram 08/16/22 19:06 Interpretation Summary Normal LV size. The estimated ejection fraction is 40 %. Mild to moderate global left ventricular systolic dysfunction. There is mild to moderate global hypokinesis of the left ventricle. Ordering Physician: Fiordaliza Nichols Referring Physician: Michelle Thompson: Melinda Villa Performed By: Venita Mcgrath, CATHERINE, RVT Physical Exam Const alert and no apparent distress HEENT head/scalp atraumatic Resp normal respiratory effort, no retractions, no use of accessory muscles and clear to auscultation bilaterally Cardio regular rate, regular rhythm, S1 normal heart sound and S2 normal heart sound GI normal to inspection, nondistended, normoactive bowel sounds, soft to palpation, non-tender and non-distended Assessment & Plan Assessment/Plan (1) Acute respiratory failure with hypoxia: PLAN: Resolved 2/2 CHF exacerbation Down to room air CTA w/ pleural effusion, infiltrate, edema. PEP (2) CHF exacerbation: QUALIFIERS: Heart failure type: systolic Qualified Code(s): I50.23 - Acute on chronic systolic (congestive) heart failure PLAN: Acute heart failure with reduced ejection fraction Echo shows an EF of 40%. Mild to moderate global left ventricular systolic dysfunction. Suspect due to related cardiomyopathy. off furosemide cards cs on carvedilol (3) NSTEMI, initial episode of care: PLAN: Likely type 2 (demand ischemia from resp failure and CHF) Troponins trending down (4) Pre-eclampsia: PLAN: As needed labetalol every 4 hours to keep blood pressure systolic less than 140 Per LEAD TECHNICAL WRITER: goal BP <160/110 (5) Leukocytosis: QUALIFIERS: Leukocytosis type: unspecified Qualified Code(s): D72.829 - Elevated white blood cell count, unspecified PLAN: Trending down Suspect reactive Very low suspicion for infection (6) Transaminitis: PLAN: Unclear significance Monitor PLAN: Plan mgmt per LEAD TECHNICAL WRITER Chronic conditions: GERD-Continue PPI History of insulin resistance-On metformin as an outpatient-On hold for now-Did receive steroids earlier today-Monitor blood sugars-If blood sugars elevated could consider adding SSI Seasonal allergies-Continue Flonase Depression-Continue Lexapro DVT prophylaxis: enoxaparin CODE STATUS-Full code Medically stable for discharge. Charges/Coding Visit Charges Inpatient E&M: 54680 Subs Hosp L2
--- NOTE | 2022-08-18 08:27 | PN.OBGYN_ITS ---
Subjective Subjective Patient doing well without complaints. Tolerating PO. Ambulating and voiding without difficulty. Feeding well. Denies chest pain, shortness of breath, calf pain/swelling, fevers, chills, lightheadedness. Objective Data Objective Data Vital Signs: Vital Signs Temp Pulse Resp BP Pulse Ox O2 Del Method O2 Flow Rate 97.1 F L 95 16 141/100 H 99 Room Air 2 08/18/22 00:01 08/18/22 00:01 08/18/22 00:01 08/18/22 00:01 08/18/22 00:01 08/18/22 00:01 08/17/22 10:00 FiO2 35 08/16/22 20:23 Oxygen Flow Rate (L/min) 2 Oxygen Delivery Method Room Air Weight: 263 lb Body Mass Index (BMI) 46.5 Intake & Output: Intake and Output for Last 24 Hours 08/16/22 08/17/22 08/18/22 23:59 23:59 23:59 Intake Total 3910.48 / 3910.48 50 / 50 Output Total 4000 / 4300 7950 / 7950 Balance -89.52 / -389.52 -7900 / -7900 Lab / Micro Data 08/18/22 06:04 08/17/22 03:25 Labs: Laboratory Results - last 24 hr 08/17/22 03:25: Total Bilirubin 0.20, Direct Bilirubin 0.06, AST 18, ALT 12 L, Alkaline Phosphatase 157 H, Total Protein 5.2 L, Albumin 1.6 L, Globulin 3.6 08/18/22 06:04: WBC 11.2 H, RBC 3.61 L, Hgb 10.2 L, Hct 31.9 L, MCV 88.4, MCH 28.3, MCHC 32.0, RDW Std Deviation 43.8, RDW Coeff of Seema 13.7, Plt Count 321, MPV 11.4, Immature Gran % (Auto) 0.500, Neut % (Auto) 52.9, Lymph % (Auto) 36.6, [place] % (Auto) 8.5, Eos % (Auto) 1.1, Baso % (Auto) 0.4, Absolute Neuts (auto) 5.9, Absolute Lymphs (auto) 4.09, Nucleated RBC % 0 Radiography Diagnostic Testing: Radiology Impression Echocardiogram 08/16/22 19:06 Interpretation Summary Normal LV size. The estimated ejection fraction is 40 %. Mild to moderate global left ventricular systolic dysfunction. There is mild to moderate global hypokinesis of the left ventricle. Ordering Physician: Fiordaliza Nichols Referring Physician: Michelle Thompson: Melinda Villa Performed By: Venita Mcgrath, CATHERINE, RVT Constitutional Constitutional: Denies chills, fatigue, fever(s), poor appetite or weakness Eyes Eyes: Denies blurry vision, change in vision, seeing flashes or spots in vision ENT HEENT: Denies dizziness, headache(s), loss taste/smell or sore throat Cardiovascular Cardiovascular: Denies chest pain, dizziness, dyspnea, irregular heart rhythm, palpitations or rapid heart rate Respiratory/Chest Respiratory/Chest: Denies chest tightness, cough, dyspnea or breast pain Gastrointestinal Gastrointestinal: Denies abdominal pain, constipation or vomiting Genitourinary Genitourinary: Denies dysuria or flank pain Musculoskeletal Musculoskeletal: Denies difficulty walking, joint pain, limited range of motion or numbness Neurologic Neurologic: Denies abnormal movements, abnormal speech, dizziness, numbness, seizure-like activity or syncope Psychiatric Psychiatric: Denies anxiety, behavioral changes, change in appetite, confusion, depression or suicidal thoughts Physical Exam Const alert, oriented x3 and no apparent distress General Appearance: cooperative and comfortable Resp normal respiratory effort Cardio regular rate GI normal to inspection, nondistended, normoactive bowel sounds GI Narrative: uterus is firm below umbilicus Palpation: soft Rectal Exam: other Other Details: incision is clean, dry, and intact Back/Spine no CVA tenderness and thoraco-lumbar ROM normal Extremity normal to inspection, no clubbing, cyanosis or edema, no calf tenderness and no pedal edema Psych mental status grossly normal, thought process normal, cooperative, affect normal, speech normal, activity/motor behavior normal, denies homicidal ideation and denies suicidal ideation Assessment & Plan (1) Peripartum cardiomyopathy: (2) Pulmonary edema: (3) Transaminitis: (4) Leukocytosis: QUALIFIERS: Leukocytosis type: unspecified Qualified Code(s): D72.829 - Elevated white blood cell count, unspecified (5) Acute respiratory failure with hypoxia: (6) Pre-eclampsia: COMMENT: s/p delivery, cbc cmp WNL preop, mild bps initially no anti HTN needed, given IV labetalol due acute dyspnea episode due to severe elevations (7) delivery delivered: COMMENT: ZULEYKA LLAMASTCS BS boy [place] 38 preeclampsia PLAN: Plan s/p LTCS on 08/16/22 ppd#2 1. routine post care with co-care from cardiology. continue coreg and bp monitoring. pt is asymptomatic. yesterday echo showed 40%EF. appreciate cardiology assistance for follow up. -Leukocytosis resolving 2. breast feeding- support given 3. rh positive 4. rubella immune
[2022-08-18] MEDS: 0.9% Saline Lock 10 ML Syringe IV (10:21)
[2022-08-18] MEDS: Senna/Docusate Sodium 1 Tablet PO (10:22)
[2022-08-18] MEDS: Carvedilol 6.25 MG Tablet PO (10:22)
[2022-08-18] MEDS: Sodium Chloride 0.65% 1 SPRAY SPRAY.BTL 2 SPRAY NASAL (11:52)
[2022-08-18] MEDS: oxyCODONE 5 MG Tablet PO (19:41)
[2022-08-18] MEDS: Carvedilol 12.5 MG Tablet PO (20:08)
[2022-08-18] MEDS: Enoxaparin 40 MG/0.4 ML Syringe SC (22:35)
[2022-08-19] VITALS (8 sets, daily range): BP systolic 124–151; BP diastolic 83–106; PULSE 81–96; RESP 14–17; TEMP 36.1–36.6; O2SAT 94–98
[2022-08-19] MEDS: Acetaminophen 500 MG Tablet 1000 MG PO ×3 (00:17→12:07)
[2022-08-19] MEDS: oxyCODONE 5 MG Tablet PO ×2 (00:21→09:21)
--- NOTE | 2022-08-19 00:45 | NURSING ---
This RN pulled out 5mg of oxy for pt and carmen NICE scanned under her name with this RN in room.
[2022-08-19] MEDS: Naproxen 500 MG Tablet PO ×2 (08:14→13:38)
[2022-08-19] MEDS: Carvedilol 12.5 MG Tablet PO ×2 (08:14→11:07)
--- NOTE | 2022-08-19 08:14 | PCM.PN.OB ---
Subjective Subjective Patient doing well without complaints. Tolerating PO. Ambulating and voiding without difficulty. feeding well. Denies chest pain, shortness of breath, calf pain/swelling, fevers, chills, lightheadedness. Objective Data Objective Data Vital Signs: Vital Signs Temp Pulse Resp BP Pulse Ox O2 Del Method O2 Flow Rate 97.0 F L 90 16 151/106 H 97 Room Air 2 08/19/22 08:07 08/19/22 08:07 08/19/22 08:07 08/19/22 08:07 08/19/22 08:07 08/19/22 08:07 08/17/22 10:00 FiO2 35 08/16/22 20:23 Oxygen Flow Rate (L/min) 2 Oxygen Delivery Method Room Air Weight: 263 lb Body Mass Index (BMI) 46.5 Intake & Output: Intake and Output for Last 24 Hours 08/17/22 08/18/22 08/19/22 23:59 23:59 23:59 Intake Total 50 / 50 Output Total 7950 / 7950 Balance -7900 / -7900 Lab / Micro Data 08/18/22 06:04 08/17/22 03:25 ROS Constitutional Constitutional: Reports systems reviewed and no addt'l complaints, except as documented Cardiovascular Cardiovascular: Reports systems reviewed and no addt'l complaints, except as documented Respiratory/Chest Respiratory/Chest: Reports systems reviewed and no addt'l complaints, except as documented Gastrointestinal Gastrointestinal: Reports systems reviewed and no addt'l complaints, except as documented Physical Exam Const alert, oriented x3 and no apparent distress HEENT Head and Scalp: atraumatic Resp normal respiratory effort GI soft to palpation and non-tender Inspection: incision intact, healing well and drainage (none) Bimanual Exam - Vag & Uterus: uterus non-tender Uterus Palpation: uterus fundus firm (below Umbilicus) Assessment & Plan (1) Peripartum cardiomyopathy: COMMENT: cardiology consulted, on coreg. improving and stable. plan fu as outpatient (2) Pulmonary edema: QUALIFIERS: Chronicity: acute Qualified Code(s): J81.0 - Acute pulmonary edema (3) NSTEMI, initial episode of care: (4) CHF exacerbation: QUALIFIERS: Heart failure type: systolic Qualified Code(s): I50.23 - Acute on chronic systolic (congestive) heart failure (5) Pre-eclampsia: QUALIFIERS: Trimester: third trimester Qualified Code(s): O14.93 - Unspecified pre-eclampsia, third trimester COMMENT: s/p delivery, cbc cmp WNL preop, mild bps initially no anti HTN needed, given IV labetalol due acute dyspnea episode due to severe elevations (6) delivery delivered: COMMENT: ZULEYKA RLTCS BS boy [place] 38 preeclampsia (7) Acute respiratory failure with hypoxia: (8) Acute dyspnea: COMMENT: suspect flash pulmonary edema- giving IV lasix, will get CT chest and echo, EKG done. in ICU overnight for support PLAN: Plan s/p LTCS PPD # 3 1. see a/p comments 2. continue coreg, bps controlled, stable for dc to home today, plan fu with cardio as OP
--- NOTE | 2022-08-19 08:18 | DS.PCM_ITS ---
Providers Date of Admission: 08/16/22 Primary Care Physician: Dr. Luda Villa, DO Consultations 08/16/22 19:06 Consult: [facility] / Pulmonary Medicine Routine Consulting Provider: [facility] Reason for Consult: flash pulmonary edema EMERGENT Consult: No Notified: Yes Date Notified: 08/16/22 Time Notified: 18:54 Method of Notification: Verbal 08/16/22 20:57 Consult: Cardiology Routine Consulting Provider: [facility] Reason for Consult: Elevated BNP EMERGENT Consult: No MD Notified: Yes Date Notified: 08/16/22 Time Notified: 20:57 Method of Notification: Text Reason For Visit: C SECTION Diagnosis Discharge Diagnosis (1) Peripartum cardiomyopathy: Status: Acute Code(s): O90.3 - Peripartum cardiomyopathy (2) Pulmonary edema: Status: Acute Code(s): J81.1 - Chronic pulmonary edema Qualifiers: Chronicity: acute Qualified Code(s): J81.0 - Acute pulmonary edema (3) NSTEMI, initial episode of care: Status: Acute Code(s): I21.4 - Non-ST elevation (NSTEMI) myocardial infarction (4) CHF exacerbation: Status: Chronic Code(s): I50.9 - Heart failure, unspecified Qualifiers: Heart failure type: systolic Qualified Code(s): I50.23 - Acute on chronic systolic (congestive) heart failure (5) Pre-eclampsia: Status: Acute Code(s): O14.90 - Unspecified pre-eclampsia, unspecified trimester Qualifiers: Trimester: third trimester Qualified Code(s): O14.93 - Unspecified pre- eclampsia, third trimester (6) delivery delivered: Status: Acute Code(s): O82 - Encounter for delivery without indication (7) Acute respiratory failure with hypoxia: Status: Acute Code(s): J96.01 - Acute respiratory failure with hypoxia (8) Acute dyspnea: Status: Resolved Code(s): R06.00 - Dyspnea, unspecified Plan s/p LTCS PPD # 3 1. see a/p comments 2. continue coreg, bps controlled, stable for dc to home today, plan fu with cardio as OP Medications at Discharge Home Medications escitalopram oxalate 10 mg tablet (Lexapro) 10 mg PO DAILY anxiety 02/11/22 omeprazole 20 mg capsule,delayed release 20 mg PO DAILY heartburn 02/11/22 vitamins no.163-iron bis-gly 20 mg-folate no.10 1 mg tablet (PNV Tabs 20-1) 1 tab PO DAILY 02/11/22 fluticasone propionate 50 mcg/actuation nasal spray,suspension (Flonase Allergy Relief) 2 spray intranasal DAILY sinus 08/09/22 metformin 500 mg PO.IVFORM BID insulin resistance 08/09/22 carvedilol 12.5 mg tablet 12.5 mg PO BID@0800,2000 30 days #60 tabs 08/19/22 naproxen 500 mg tablet 500 mg PO Q8H #30 tabs 08/19/22 oxycodone-acetaminophen 5 mg-325 mg tablet (Percocet) 1 tab PO Q6H PRN pain 7 days #20 tabs 08/19/22 Hospital Course Operations section (and BS) Procedures 2-D Echocardiogram, EKG and - (CT of the chest- negative, CXR- pulmonary edema) Summary of Care Provided Hospital Course: Patient was admitted for repeat low transverse and bilateral salpingectomy for delivery at 37 weeks for preeclampsia with mild features. Magnesium sulfate therapy was not indicated due to the mild status of the preeclampsia. cbc and cmp the day of surgery was WNL with nl cr, platelets, and liver enzymes. The most abnormal lab predelivery had been her urine protein cr ratio had been borderline sever at 4600mg. bps were normal to mildly elevated in the 150s/90s with no antihypertensive therapy prior to delivery. w Surgery was unremarkable and then 12 hours postop she developed acute shortness of breath and hypoxia into the 70s on room air. Rapid response called for evaluation. Upon evaluation she had acute flash pulmonary edema upon further evaluation and had an elevated BNP of 1500 and her echocardiogram showed peripartum cardiomyopathy. Cardiology, crititcal care team, and the hospitalists were involved in care. Patient was transferred to the ICU given IV Lasix and diuresed well and started on Coreg also. Troponins were initially elevated likely due to demand ischemia. Trended downward quickly after initial elevation. Normal EKG. CT of the chest showed no pulmonary embolus. Chest x- ray showed bilateral pulmonary edema. Echocardiogram showed EF.. Patient was stable for discharge to the floor after 24 hours in the ICU. On postop day #3 patient was stable for discharge to home. Weight / BMI Weight Weight: 263 lb Body Mass Index (BMI) 46.5 ABG / Lab / Microbiology Data 08/18/22 06:04 08/17/22 03:25 Meaningful Use Info Meaningful Use Diagnoses (Choose all that apply): CHF CHF LEONIDAS/ARB ordered at discharge?: No Reason LEONIDAS/ARB not ordered?: Not indicated Documented LVEF (%): 40 Discharge Plan Admission Admit Date/Time: 08/16/22 05:12 Attending Provider: Michelle Rodríguez Primary Care Provider: Luda Villa Consulting Providers: Shreya Lewis; Palmer Bird; Elieser Gamble; Samson Arriola; Anjel Hurd; Luis Fernando Luis; Perico Benoit; Nayan Alfonso; Krishan Brock; Eugene Suarez; Edith Altamirano; Trenton Haro; Oleg Tarango; Paul Leblanc; Miguel Moore UNEMPLOYMENT INSURANCE DIRECTOR; Shreya Fitch UNEMPLOYMENT INSURANCE DIRECTOR; Emelyn Solitario; Chele Chen; Aguila De León; Simone Sierra; Rustam Pro; Phylicia Gold UNEMPLOYMENT INSURANCE DIRECTOR Discharge Orders/Prescriptions Prescriptions: New carvedilol 12.5 mg Tablet 12.5 mg PO BID@0800,1999 30 Days Qty: 60 1RF naproxen 500 mg Tablet 500 mg PO Q8H Qty: 30 0RF oxycodone-acetaminophen [Percocet] 5-325 mg tablet 1 tab PO Q6H PRN (Reason: pain) 7 Days Qty: 20 0RF Continued PNV Tabs 20-1 20 mg iron- 1 mg tablet 1 tab PO DAILY escitalopram oxalate [Lexapro] 10 mg tablet 10 mg PO DAILY metformin 500 mg PO.IVFORM BID No Action omeprazole 20 mg capsule,delayed release(DR/EC) 20 mg PO DAILY fluticasone propionate [Flonase Allergy Relief] 50 mcg/actuation spray,suspension 2 spray intranasal DAILY Rx Instructions: administer into each nostril Referrals / Follow Up: Luda Villa DO [Primary Care Provider] - Disposition Disposition (needs filled in before D/C Order can be placed): Home, Self Care
[2022-08-19] MEDS: Senna/Docusate Sodium 1 Tablet PO (10:09)
== END 2022-08-19 14:25 | disposition home or self-care (01) | DRG 783 ==
LOC: WP 07:24 → ICU 08-17 06:14 → WP 08-18 12:32
PROVIDERS: Internal Medicine; Internal Medicine Critical Care Medicine; Admitting Provider Obstetrics & Gynecology; PCP Student in an Organized Health Care Education/Training Program; Visit Provider Obstetrics & Gynecology
PROC: 0UT70ZZ Resection of Bilateral Fallopian Tubes, Open Approach (ICD-10-PCS; CPT 59514; principal; 2022-08-16 06:55)
DX: O14.04 Mild to moderate pre-eclampsia, complicating childbirth (principal); J96.01 Acute respiratory failure with hypoxia; I50.23 Acute on chronic systolic (congestive) heart failure; I21.A1 Myocardial infarction type 2; O99.354 Diseases of the nervous system complicating childbirth; O99.12 Other diseases of the blood and blood-forming organs and certain disorders involving the immune mechanism complicating childbirth; O90.3 Peripartum cardiomyopathy; E66.01 Morbid (severe) obesity due to excess calories; F41.9 Anxiety disorder, unspecified; K21.9 Gastro-esophageal reflux disease without esophagitis; F32.A Depression, unspecified; G47.30 Sleep apnea, unspecified; J30.2 Other seasonal allergic rhinitis; E88.81 Metabolic syndrome and other insulin resistance; D72.829 Elevated white blood cell count, unspecified; O26.893 Other specified pregnancy related conditions, third trimester; O99.53 Diseases of the respiratory system complicating the puerperium; O99.62 Diseases of the digestive system complicating childbirth; O99.344 Other mental disorders complicating childbirth; Z37.0 Single live birth; O34.211 Maternal care for low transverse scar from previous cesarean delivery; O99.214 Obesity complicating childbirth; O99.814 Abnormal glucose complicating childbirth; O34.13 Maternal care for benign tumor of corpus uteri, third trimester; O99.43 Diseases of the circulatory system complicating the puerperium; D25.1 Intramural leiomyoma of uterus; Z3A.37 37 weeks gestation of pregnancy; Z30.2 Encounter for sterilization; Z79.84 Long term (current) use of oral hypoglycemic drugs; Z79.899 Other long term (current) drug therapy; Z87.59 Personal history of other complications of pregnancy, childbirth and the puerperium
CPT/HCPCS: 59025; 59050; 71045; 71275; 80048; 80053; 80076; 83880; 84443; 84484; 85025; 85027; 86780; 86850; 86900; 86901; 88302; 88305; 93005; 93306; 94002; 94668; 99221; J7120; Q9967; A4216; G0378; J1940; J2405

== ENCOUNTER → 2023-01-19 | Outpatient (CLI) | payer OTHER, SELFPAY ==
[2023-01-19 16:58] LABS: Absolute Lymphocyte Count 4.13 X10^3/uL (0.83-4.51); Absolute Neutrophil Count 4.6 X10^3/uL (2.0-7.7); Basophil# 0.05 X10^3/uL; Basophil% 0.5 % (0-1); Eosinophil# 0.23 X10^3/uL; Eosinophils% 2.4 % (0-5); Hematocrit 37.6 % (37-47); Hemoglobin 12.4 g/dL (12.0-15.0); Lymphocyte # 4.13 X10^3/ul (0.83-4.51); Lymphocyte % 42.8 % (19-41); Mean Corpuscular Hgb 29.7 pg (27.0-32.0); Mean Corpuscular Volume 90.2 fL (81-99); Mean Platelet Vol. 10.1 fl (6.2-12.0); Monocyte# 0.66 X10^3/uL; Monocyte% 6.8 % (0-10); NRBC Flagged by Analyzer 0 % (0-5); Neutrophil # 4.55 X10^3/uL (2.7-7.7); Neutrophil % 47.3 % (47-70); Platelet Count 357 K/mm3 (150-450); RBC Distribution Width CV 12.8 % (11.6-14.6); RBC Distribution Width SD 42.1 fl (35.1-43.9); Red Blood Count 4.17 M/mm3 (4.2-5.4); White Blood Count 9.6 K/mm3 (4.4-11.0)
[2023-01-19 17:24] LABS: T4 Free Direct 0.74 ng/dL (0.76-1.46)
[2023-01-19 17:25] LABS: Vitamin B12 671 pg/mL (211-911)
[2023-01-28 18:07] LABS: Testosterone, % Free 2.41 % (0.50-2.80); Testosterone, Free 0.43 ng/dL (0.10-0.85); Testosterone, Total 18 ng/dL (8-60); Thyroid Peroxidase AB 10 IU/mL (0-34)
== END | disposition home or self-care (01) ==
LOC: LAB 16:24
PROVIDERS: PCP Student in an Organized Health Care Education/Training Program; Referring Provider Obstetrics & Gynecology; Visit Provider Obstetrics & Gynecology
DX: L65.9 Nonscarring hair loss, unspecified (principal); D64.9 Anemia, unspecified; R68.82 Decreased libido
CPT/HCPCS: 36415; 82607; 84402; 84403; 84439; 85025; 86376

== ENCOUNTER → 2023-01-20 | Outpatient (CLI) | payer OTHER, SELFPAY | END | disposition home or self-care (01) | LOC: LABSPEC 10:27 | PROVIDERS: PCP Student in an Organized Health Care Education/Training Program; Referring Provider Obstetrics & Gynecology; Visit Provider Obstetrics & Gynecology | DX: R10.2 Pelvic and perineal pain (principal) | CPT/HCPCS: 87070; 87077; 87205 ==

== ENCOUNTER → 2023-02-28 | Outpatient (CLI) | payer OTHER, SELFPAY ==
--- OUTSIDE RECORDS SUMMARY | 2023-02-28 17:43 | XMS RPT_ITS | CCD ---
Author Name Unknown Address [address] [place] [address] Organization [facility] Care Team Providers Care Ticketing Agent Name Role Phone JOLENE ROGEL DO Primary Care Physician Unavailable Primary Care Provider UnavailVINCE Anaya Attending Unavailable MACY WALSH Referring Unavailab JOLENE Lewis Primary Care Unavailable JUJU SWEENEY Attending Unavailable MACY WALSH Referring Unavailab JOLENE Lewis Primary Care Unavailable FANY MCCORMACK Attending Unavailable JOLENE ROGEL Primary Care Unavailable ABBEY PEREIRA Referring Unavailabl e FANY MCCORMACK Attending Unavailable JOLENE ROGEL Primary Care Unavailable ABBEY PEREIRA Referring Unavailabl e JOLENE ROGEL Primary Care Unavailable MACY WALSH Referring Unavailab CHANTAL Salazar Attending Unavailable JOLENE ROGEL Primary Care Unavailable MARY FALK Attending Unavailable REFERRED, SELF Referring Unavailable FANY MCCORMACK Referring Unavailable JOLENE ROGEL Primary Care Unavailable CHANTAL CORDOVA Attending Unavailable JOLENE ROGEL DO Attending Unavail able JOLENE ROGEL DO Primary Care Unavail able RONDA DIRECTOR OF TRANSPORTATION-EXTRUSION DIE COORDINATOR, BRIGITTE Mann Attending Unavaila JOLENE Britton DO Primary Care Unavail able RANDALL TRIVEDI, DR ABBEY Guerra Attending Unav ailJOLENE Glasgow DO Primary Care Unavail able RONDA DIRECTOR OF TRANSPORTATION-EXTRUSION DIE COORDINATOR, BRIGITTE Mann Attending Unavaila JOLENE Britton DO Primary Care Unavail able EPPS DIRECTOR OF TRANSPORTATION-EXTRUSION DIE COORDINATOR, SUSAN Scruggs Attending KyleeJOLENE Vega DO Primary Care Unavail able SUSAN EPPS Referring Unavailable VINCE LAURA Attending Unavailable VINCE LAURA Referring Unavailable SUSAN EPPS Referring Unavailable DONNIE LANDAVERDE Attending Unavailable JOLENE ROGEL Primary Care SUSAN Johnston Attending Unavailable SUSAN EPPS Referring Unavailable Jolene Rogel DO Primary Care [facility] er JOLENE ROGEL Primary Care SUSAN Johnston Referring Unavailable Medications Current Medications Medication Drug Class(es) Dates Sig (Normalized) Sig (Original) docusate sodium 100 mg oral capsule (1 source) Start: 03-27-2020 Colace 100 mg oral capsule Dose : 100 mg = 1 cap(s), Oral, BID, PRN as needed for constipation, # 60 cap(s), 0 Refill(s), Pharmacy: [facility]/pharmacy #[id number], 160, cm, 03/24/20 15:45:00 EST, Height, kg, 03/24/20 15:45:00 EST, Dosing Weight Start Date: 03/27/20 Status: Ordered escitalopram 20 mg oral tablet (18 sources) Serotonin Reuptake Inhibitor Start: 04-24-2019 take 1 dose by mouth once daily Lexapro Dose : 20 mg =, Oral, qDay, 0 Refill(s) Start Date: 04/24/19 Status: Ordered Completed/Discontinued Medications Medication Drug Class(es) Dates Sig (Normalized) Sig (Original) carvedilol 25 mg oral tablet (20 sources) alpha-Adrenergic Maria D, beta-Adrenergic Maria D Start: 11-30-2022 End: 01-28-2023 take 1 tablet by mouth twice daily at mealtime carvedilol (COREG) 25 mg tablet Indications: cardiomyopathy Take 1 tablet by mouth two times a day with meals. 180 tablet 3 01/28/2023 Active Problems Active Problems Problem Classification Problem Date Documented Date Episodic/Chronic Cardiac dysrhythmias (20 sources) Multiple premature ventricular complexes; Translations: [Ventricular premature depolarization] Onset: 08-20-2022 08-20-2022 Chronic Congestive heart failure; nonhypertensive (20 sources) Acute systolic heart failure; Translations: [Acute systolic (congestive) heart failure] Onset: 08-20-2022 08-20-2022 Chronic Disorders of lipid metabolism (2 sources) Pure hyperglyceridemia; Translations: [Pure hyperglyceridemia] Onset: 03-20-2022 Chronic Esophageal disorders (19 sources) Gastroesophageal reflux disease; Translations: [Gastro-esophageal reflux disease without esophagitis] Onset: 08-20-2022 08-20-2022 Chronic Nonspecific chest pain (1 source) Chest pain, unspecified; Translations: [Chest pain, unspecified type] Onset: 01-23-2023 Episodic Other nutritional; endocrine; and metabolic disorders (19 sources) Insulin resistance; Translations: [Metabolic syndrome] Onset: 08-20-2022 08-20-2022 Chronic Other nutritional; endocrine; and metabolic disorders (2 sources) Metabolic syndrome; Translations: [Metabolic syndrome] Onset: 03-20-2022 Chronic Other upper respiratory disease (19 sources) Seasonal allergy; Translations: [Other seasonal allergic rhinitis] Onset: 08-20-2022 08-20-2022 Chronic Lori-; endo-; and myocarditis; cardiomyopathy (except that caused by tuberculosis or sexually transmitted disease) (4 sources) Cardiomyopathy; Translations: [Cardiomyopathy, unspecified] Onset: 12-17-2022 12-17-2022 Chronic Residual codes; unclassified (20 sources) Past history of procedure; Translations: [Personal history of other medical treatment] Onset: 08-16-2022 08-20-2022 Episodic Unclassified (1 source) Breast feeding (infant) (observable entity) 03-25-2020 Past or Other Problems Problem Classification Problem Date Documented Da te Episodic/Chronic Deficiency and other anemia (19 sources) Anemia; Translations: [Anemia, unspecified] Onset: 08-20-2022 08-20-2022 Episodic Hypertension complicating ; childbirth and the puerperium (19 sources) Pre-eclampsia; Translations: [Unspecified pre-eclampsia, unspecified trimester] Onset: 07-22-2022 08-20-2022 Episodic Other complications of ; puerperium affecting management of mother (20 sources) cardiomyopathy; 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] Onset: 08-20-2022 08-20-2022 Episodic Other complications of ; puerperium affecting management of mother (4 sources) Peripartum cardiomyopathy; 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] Onset: 08-20-2022 Episodic Other screening for suspected conditions (not mental disorders or infectious disease) (3 sources) Patient encounter status; Translations: [Encounter for screening for lipoid disorders] Onset: 05-28-2022 11-30-2022 Episodic Pleurisy; pneumothorax; pulmonary collapse (20 sources) Pleural effusion; Translations: [Pleural effusion, not elsewhere classified] Onset: 07-22-2022 08-20-2022 Episodic Results Test Name Value Interpretation Reference Range Facil ity Vital Signs Date Time Vital Sign Value Performing Clinician Faci lity 11-30-2022 14:43-0400 Body height 160 cm Vince Laura MD Work Phone: [facility] 11-30-2022 14:43-0400 Body weight 104.78 kg Vince Laura MD Work Phone: [facility] 09-08-2022 14:57-0400 Body height 160 cm Susan Epps DIRECTOR OF TRANSPORTATION.EXTRUSION DIE COORDINATOR Work Phone: [facility] 09-08-2022 14:57-0400 Body weight 102.51 kg Susan Epps DIRECTOR OF TRANSPORTATION.EXTRUSION DIE COORDINATOR Work Phone: [facility] 09-08-2022 14:57-0400 Diastolic blood pressure 88 mm[Hg] Susan Epps DIRECTOR OF TRANSPORTATION.EXTRUSION DIE COORDINATOR Work Phone: [facility] 09-08-2022 14:57-0400 Heart rate 72 /min Susan Epps DIRECTOR OF TRANSPORTATION.EXTRUSION DIE COORDINATOR Work Phone: [facility] 09-08-2022 14:57-0400 Systolic blood pressure 120 mm[Hg] Susan Epps DIRECTOR OF TRANSPORTATION.EXTRUSION DIE COORDINATOR Work Phone: [facility] Encounters Encounter Date Encounter Type Care Provider Facility Start: 02-24-2023 ambulatory JOLENE Austin Facility:[facility] Start: 02-03-2023 Refill Susan lawrence DIRECTOR OF TRANSPORTATION.EXTRUSION DIE COORDINATOR Work Phone: [facility] Cardiology Procedures Date Procedure Procedure Detail Performing Clinician Start: 01-12-2023 Cta hrt cornry art/b ypass grfts contrst 3d post Susan Epps DIRECTOR OF TRANSPORTATION.EXTRUSION DIE COORDINATOR Work Phone: Start: 12-17-2022 Ecg routine ecg w/le ast 12 lds i&r only Susan Scruggs Mich DIRECTOR OF TRANSPORTATION.EXTRUSION DIE COORDINATOR Work Phone: Start: 04-24-2019 Incision and drainag e of abscess JOLENE ROGEL DO Plan of Treatment Date Care Activity Detail Author Start: 06-16-2032 Urine microalbumin profile DTaP,Tdap,Td Vaccine (2 - Td or Tdap) [facility] Start: 12-17-2022 End: 03-18-2023 Basic metabolic 2000 panel - Serum or Plasma BASIC METABOLIC PNL Lab Routine cardiomyopathy Expected: 12/17/2022, Expires: 03/18/2023 [facility] Work Phone: Immunizations Immunization Date Immunization Notes Care Provider Lauro segal 11-14-2019 influenza virus vacc ine, unspecified formulation Vince Laura MD Work Phone: [facility] Payers Date Payer Category Payer Unknown MMO MMO [employer] PPO [id number] 2020-Present [phone] [address] [place] [address] PPO [id number] 2020 Unknown [id number] 1991 Unknown [id number] 1991 Unknown [id number] 1991 Unknown [id number] 1991 Unknown [id number] 1991 Unknown [id number] 1991 Unknown [id number] 1991 Unknown [id number] 1991 Unknown [id number] 1991 Unknown [id number] 1991 Unknown [id number] 1991 Unknown [id number] 1991 Unknown [id number] Social History Date Type Detail Facility Start: 04-24-2019 End: 08-20-2022 Tobacco smoking status Never smoked tobacco (finding) [facility] Sex Assigned At Sex [facility] Start: 08-20-2022 Tobacco use and exposure Smokeless tobacco non-user [facility] Work Phone: Start: 08-20-2022 End: 01-12-2023 Alcohol intake Ex-drinker (finding) [facility] Start: 1990 Sex Assigned At Not on file C [facility] Start: 08-20-2022 End: 09-08-2022 History of Social function [facility] Start: 08-20-2022 End: 09-08-2022 Tobacco use panel [facility] National Score (1-10 0), lower number is lower risk 70 [facility] Start: 09-01-2022 Sexual orientation Heterosexual (oscar shanks) [facility] Clinical Notes 02-23-2021 to 02-24-2023 Telephone Encounter - Meggan Galvez MA - 01/28/2023 8:07 AM ESTTelephone Encounter - Felisa Camargo MA - 01/17/2023 9:57 AM Thelma Aguilar RT(R) - 01/12/2023 8:00 AM EST Note Date & Type Note Facility 02-24-2023 Note HNO ID: [id number] Author: TAMEKA POE RT(R) Service: Radiology Author Type: Technologist Type: Progress Notes Filed: 02/24/2023 08:17 Note Text: Radiology Service Progress Note DATE OF SERVICE: February 24, 2023 TIME: 8:17 AM PATIENT IDENTITY VERIFICATION COMPLETED USING TWO (2) STANDARD IDENTIFIERS: Name and Date of confirmed by patient verbally and Name and Date of confirmed by identification band. FALL SCREENING: Has the patient had 2 falls in the last year or 1 fall with injury or currently using an Ambulatory Assistive Device (Walker, Cane, Wheelchair, Crutches, etc.)? No PATIENT GENDER DATA: Female. status: : No status: NO. PATIENT RELEVANT IMPLANT DATA REVIEWED: Yes ALLERGIES: Reviewed and unchanged CONTRAST ALLERGY: NO. EXAM: MRI - CONTRAST TYPE: GROUP II PERIPHERAL IV DATA: Ambulatory: A peripheral IV was started in the Right antecubital site with a Angio cath: 22 gauge. RADIOLOGY DEPARTMENT: MR; Exam(s) Completed: Cardiac: Cardiac SIGNATURE: RT Isabel(R) PATIENT NAME: Christa Henderson DATE: February 24, 2023 TIME: 8:17 AM [facility] 01-28-2023 Miscellaneous Notes Pharmacy faxes requesting refill: Requested Prescriptions Pending Prescriptions Disp Refills carvedilol (COREG) 25 mg tablet 180 tablet 3 Sig: Take 1 tablet by mouth two times a day with meals. Date of last visit:11/30/2022 Phone #: [phone] (home) [phone] (cell) The patients preferred pharmacy has been captured for this encounter? yes documented in this encounter [facility] 01-17-2023 Miscellaneous Notes Patient was notified of the Providers message in chart and is agreeable to have them fax it over. Let the patient know, cardiac CTA is negative for CAD. She can have hernia surgery. Have her surgeon send us a clearance form. documented in this encounter [facility] 01-12-2023 Note HNO ID: [id number] Author: Thelma Cottrell RT(R) Service: Radiology Author Type: Technologist Type: Progress Notes Filed: 01/12/2023 9:55 AM Note Text: Radiology Service Progress Note DATE OF SERVICE: January 12, 2023 TIME: 9:49 AM PATIENT IDENTITY VERIFICATION COMPLETED USING TWO (2) STANDARD IDENTIFIERS: Name and Date of confirmed by patient verbally. FALL SCREENING: Has the patient had 2 falls in the last year or 1 fall with injury or currently using an Ambulatory Assistive Device (Walker, Cane, Wheelchair, Crutches, etc.)? No PATIENT GENDER DATA: Female. status: : No status: NO. PATIENT RELEVANT IMPLANT DATA REVIEWED: Not Applicable ALLERGIES: Reviewed and unchanged CONTRAST ALLERGY: NO. EXAM: CT -CONTRAST INDUCED NEPHROPATHY RISK FACTORS: Not applicable CREATININE: No results found for: CREAT , EGFROTH , EGFRAA P.O.C.T. RESULTS: POC done: Yes, See Lab Tab January 12, 2023 TREATMENT: N/A PERIPHERAL IV DATA: Ambulatory: A peripheral IV was started in the Right antecubital site with a Angio cath: 20 gauge. RADIOLOGY DEPARTMENT: CT; Exam(s) Completed: CTA Cardiac SIGNATURE: RT Glenroy(R) PATIENT NAME: Christa Henderson DATE: January 12, 2023 TIME: 9:49 AM [facility] 01-12-2023 History of Presen t illness Narrative Radiology Service Progress Note DATE OF SERVICE: January 12, 2023 TIME: 9:49 AM PATIENT IDENTITY VERIFICATION COMPLETED USING TWO (2) STANDARD IDENTIFIERS: Name and Date of confirmed by patient verbally. FALL SCREENING: Has the patient had 2 falls in the last year or 1 fall with injury or currently using an Ambulatory Assistive Device (Walker, Cane, Wheelchair, Crutches, etc.)? No PATIENT GENDER DATA: Female. status: : No status: NO. PATIENT RELEVANT IMPLANT DATA REVIEWED: Not Applicable ALLERGIES: Reviewed and unchanged CONTRAST ALLERGY: NO. EXAM: CT -CONTRAST INDUCED NEPHROPATHY RISK FACTORS: Not applicable CREATININE: No results found for: CREAT , EGFROTH , EGFRAA P.O.C.T. RESULTS: POC done: Yes, See Lab Tab January 12, 2023 TREATMENT: N/A PERIPHERAL IV DATA: Ambulatory: A peripheral IV was started in the Right antecubital site with a Angio cath: 20 gauge. RADIOLOGY DEPARTMENT: CT; Exam(s) Completed: CTA Cardiac SIGNATURE: RT Glenroy(R) PATIENT NAME: Christa Henderson DATE: January 12, 2023 TIME: 9:49 AM documented in this encounter [facility] 12-24-2022 Note HNO ID: [id number] Author: Felisa Camargo MA Service: ? Author Type: Help Desk Assistant Type: Progress Notes Filed: 12/24/2022 3:43 PM Note Text: Blood Pressure Check Reason for blood pressure check Ortho's after increasing Losartan to 25 mg BID Name and reviewed and verified with patient. Allergies reviewed and verified with patient. Current Outpatient Medications Medication Sig losartan (COZAAR) 25 mg tablet Take 1 tablet by mouth two times a day. carvedilol (COREG) 25 mg tablet Take 1 tablet by mouth two times a day with meals. escitalopram oxalate (LEXAPRO) 10 mg tablet Take 20 mg by mouth once daily. omeprazole (PRILOSEC) 20 mg capsule Take 20 mg by mouth once daily. metFORMIN (GLUCOPHAGE) 500 mg tablet Take 500 mg by mouth twice daily with meals. iv contrast (will be provided with radiology test) CTA Coronary. No IV access, insert saline lock prior to the sedation, infusion, injection for imaging exam. Discontinue saline lock post exam. If Pt. has a central line or IVAD, may access for administration according to line specific nursing protocol. Once exam is complete flush line and de-access according to line specific nursing protocol in the CT contrast administration guidelines link. Current Facility-Administered Medications Medication Dose Route Frequency perflutren lipid microspheres 1.3 mL in NaCl (PF) 0.9% 10 mL injection (DEFINITY) INTRAVENOUS DIRECTED PRN sodium chloride 0.9 % (flush) 10 mL (BD POSIFLUSH) 10 mL INTRAVENOUS DIRECTED PRN Patient is taking medication as prescribed Yes Took medication today Yes Experiencing side effects No Blood Pressure at last office visit: 120/88 Blood Pressure today: 110/68 Physician notified of blood pressure readings Yes Felisa Camargo MA [facility] 12-24-2022 History of Presen t illness Narrative Blood Pressure Check Reason for blood pressure check Ortho's after increasing Losartan to 25 mg BID Name and reviewed and verified with patient. Allergies reviewed and verified with patient. Current Outpatient Medications Medication Sig losartan (COZAAR) 25 mg tablet Take 1 tablet by mouth two times a day. carvedilol (COREG) 25 mg tablet Take 1 tablet by mouth two times a day with meals. escitalopram oxalate (LEXAPRO) 10 mg tablet Take 20 mg by mouth once daily. omeprazole (PRILOSEC) 20 mg capsule Take 20 mg by mouth once daily. metFORMIN (GLUCOPHAGE) 500 mg tablet Take 500 mg by mouth twice daily with meals. iv contrast (will be provided with radiology test) CTA Coronary. No IV access, insert saline lock prior to the sedation, infusion, injection for imaging exam. Discontinue saline lock post exam. If Pt. has a central line or IVAD, may access for administration according to line specific nursing protocol. Once exam is complete flush line and de-access according to line specific nursing protocol in the CT contrast administration guidelines link. Current Facility-Administered Medications Medication Dose Route Frequency perflutren lipid microspheres 1.3 mL in NaCl (PF) 0.9% 10 mL injection (DEFINITY) INTRAVENOUS DIRECTED PRN sodium chloride 0.9 % (flush) 10 mL (BD POSIFLUSH) 10 mL INTRAVENOUS DIRECTED PRN Patient is taking medication as prescribed Yes Took medication today Yes Experiencing side effects No Blood Pressure at last office visit: 120/88 Blood Pressure today: 110/68 Physician notified of blood pressure readings Yes Felisa Camargo MA documented in this encounter [facility] 12-17-2022 Note HNO ID: [id number] Author: Felisa Camargo MA Service: ? Author Type: Help Desk Assistant Type: Progress Notes Filed: 12/17/2022 3:54 PM Note Text: EKG Check EKG performed per protocol on Christa Henderson EKG and Ortho's after increasing Coreg to 25 mg BID Name and reviewed and verified with patient. Allergies reviewed and verified with patient. Current Outpatient Medications Medication Sig carvedilol (COREG) 25 mg tablet Take 1 tablet by mouth two times a day with meals. iv contrast (will be provided with radiology test) CTA Coronary. No IV access, insert saline lock prior to the sedation, infusion, injection for imaging exam. Discontinue saline lock post exam. If Pt. has a central line or IVAD, may access for administration according to line specific nursing protocol. Once exam is complete flush line and de-access according to line specific nursing protocol in the CT contrast administration guidelines link. metoprolol tartrate, short acting, (LOPRESSOR) 50 mg tablet Take one 50 mg tablet the evening prior to the CTA examination, take another 50 mg tablet the morning of the CTA examination. losartan (COZAAR) 25 mg tablet Take 1 tablet by mouth once daily. escitalopram oxalate (LEXAPRO) 10 mg tablet Take 10 mg by mouth once daily. omeprazole (PRILOSEC) 20 mg capsule Take 20 mg by mouth once daily. metFORMIN (GLUCOPHAGE) 500 mg tablet Take 500 mg by mouth twice daily with meals. Current Facility-Administered Medications Medication Dose Route Frequency perflutren lipid microspheres 1.3 mL in NaCl (PF) 0.9% 10 mL injection (DEFINITY) INTRAVENOUS DIRECTED PRN sodium chloride 0.9 % (flush) 10 mL (BD POSIFLUSH) 10 mL INTRAVENOUS DIRECTED PRN Patient is taking medication as prescribed Yes Took medication today Yes Experiencing side effects No Physician notified of EKG readings Yes Feilsa Camargo MA [facility] 12-17-2022 Miscellaneous Notes Patient was notified of the Providers message in chart and is agreeable to get BW done at [facility]. Please sign order. EKG looks okay. Blood pressure low normal. Increase losartan to 25 mg twice daily. Ortho's and BMP in 1 week. documented in this encounter [facility] 12-17-2022 History of Presen t illness Narrative EKG Check EKG performed per protocol on Christa Henderson EKG and Ortho's after increasing Coreg to 25 mg BID Name and reviewed and verified with patient. Allergies reviewed and verified with patient. Current Outpatient Medications Medication Sig carvedilol (COREG) 25 mg tablet Take 1 tablet by mouth two times a day with meals. iv contrast (will be provided with radiology test) CTA Coronary. No IV access, insert saline lock prior to the sedation, infusion, injection for imaging exam. Discontinue saline lock post exam. If Pt. has a central line or IVAD, may access for administration according to line specific nursing protocol. Once exam is complete flush line and de-access according to line specific nursing protocol in the CT contrast administration guidelines link. metoprolol tartrate, short acting, (LOPRESSOR) 50 mg tablet Take one 50 mg tablet the evening prior to the CTA examination, take another 50 mg tablet the morning of the CTA examination. losartan (COZAAR) 25 mg tablet Take 1 tablet by mouth once daily. escitalopram oxalate (LEXAPRO) 10 mg tablet Take 10 mg by mouth once daily. omeprazole (PRILOSEC) 20 mg capsule Take 20 mg by mouth once daily. metFORMIN (GLUCOPHAGE) 500 mg tablet Take 500 mg by mouth twice daily with meals. Current Facility-Administered Medications Medication Dose Route Frequency perflutren lipid microspheres 1.3 mL in NaCl (PF) 0.9% 10 mL injection (DEFINITY) INTRAVENOUS DIRECTED PRN sodium chloride 0.9 % (flush) 10 mL (BD POSIFLUSH) 10 mL INTRAVENOUS DIRECTED PRN Patient is taking medication as prescribed Yes Took medication today Yes Experiencing side effects No Physician notified of EKG readings Yes Felisa Camargo MA documented in this encounter [facility] 12-07-2022 Miscellaneous Notes BW orders were faxed to [facility]. documented in this encounter [facility] 12-02-2022 Miscellaneous Notes Left voicemail for patient to return call in regards to Providers message. We need to know where she wants her BW orders to go. Lipid profile and CMP. She knows but we did not give her a lab slip. I will put the orders and find out where to fax them. documented in this encounter [facility] 11-30-2022 Note HNO ID: [id number] Author: Vince Laura MD Service: ? Author Type: Physician Type: Progress Notes Filed: 11/30/2022 4:00 PM Note Text: [facility] PCP: No primary care provider on file. HPI: Christa Henderson is a 32 year old female who is here today for for a follow-up visit. The patient has a history of a cardiomyopathy which is presumed to be . The patient had problems with shortness of breath immediately after delivering her second child. She had moderate bilateral pleural effusions. A chest CT scan did not show evidence for pulmonary embolism. An echocardiogram demonstrated an ejection fraction of 40% with mild concentric left ventricular hypertrophy and normal valve function. The patient was placed on afterload reduction with losartan and also on beta-maria d therapy with carvedilol. A follow-up echocardiogram November 17, 2022 which showed an ejection fraction of 42%. However the visual assessment was thought to be more in the 45 to 50% range. Currently the patient feels fine. She denies any problems with chest pain, pressure, or discomfort. She denies orthopnea, PND, shortness of breath at rest, or dyspnea on exertion. She denies palpitations, lightheadedness, presyncope, or syncope. Prior history: Overview Notes of Problems Addressed This Visit Cardiovascular PVC's (premature ventricular contractions) Relevant Orders ECG COMPLETE cardiomyopathy - Primary Relevant Medications carvedilol (COREG) 25 mg tablet Chronic systolic (congestive) heart failure (HCC) Relevant Medications carvedilol (COREG) 25 mg tablet CURRENT MEDICATIONS: Current Outpatient Medications Medication Sig carvedilol (COREG) 25 mg tablet Take 1 tablet by mouth two times a day with meals. escitalopram oxalate (LEXAPRO) 10 mg tablet Take 10 mg by mouth once daily. iv contrast (will be provided with radiology test) CTA Coronary. No IV access, insert saline lock prior to the sedation, infusion, injection for imaging exam. Discontinue saline lock post exam. If Pt. has a central line or IVAD, may access for administration according to line specific nursing protocol. Once exam is complete flush line and de-access according to line specific nursing protocol in the CT contrast administration guidelines link. losartan (COZAAR) 25 mg tablet Take 0.5 tablets by mouth once daily. losartan (COZAAR) 25 mg tablet Take 1 tablet by mouth once daily. metFORMIN (GLUCOPHAGE) 500 mg tablet Take 500 mg by mouth twice daily with meals. metoprolol tartrate, short acting, (LOPRESSOR) 50 mg tablet Take one 50 mg tablet the evening prior to the CTA examination, take another 50 mg tablet the morning of the CTA examination. nitroglycerin sublingual (NITROQUICK) 0.3 mg SL tablet Dissolve 1 tablet under the tongue one time only for 1 dose. To be administered in Radiology for CTA exam nitroglycerin sublingual (NITROQUICK) 0.3 mg SL tablet Dissolve 1 tablet under the tongue one time only for 1 dose. To be administered in Radiology for CTA exam omeprazole (PRILOSEC) 20 mg capsule Take 20 mg by mouth once daily. Current Facility-Administered Medications Medication Dose Route Frequency perflutren lipid microspheres 1.3 mL in NaCl (PF) 0.9% 10 mL injection (DEFINITY) INTRAVENOUS DIRECTED PRN sodium chloride 0.9 % (flush) 10 mL (BD POSIFLUSH) 10 mL INTRAVENOUS DIRECTED PRN PAST MEDICAL HISTORY Diagnosis Date Acute systolic CHF (congestive heart failure) (HCC) After childbirth with diagnosis of cardiomyopathy Anemia Chronic systolic (congestive) heart failure (HCC) GERD (gastroesophageal reflux disease) H/O echocardiogram 08/16/2022 EF 40%, mild concentric LVH, normal valvular function H/O echocardiogram 11/17/2022 EF 42? 5%, visual EF 45-50%, no significant valvular abnormalities Insulin resistance Pleural effusion 07/2022 Moderate bilateral pleural effusions cardiomyopathy Preeclampsia 07/2022 PVC's (premature ventricular contractions) Seasonal allergies PAST SURGICAL HISTORY Procedure Laterality Date ABSCESS DRAIN Left Thigh SNGL x 2 TOOTH EXTRACTION [place] FAMILY HISTORY Problem Relation Age of Onset Breast Cancer Mother SOCIAL HISTORY: Social History Tobacco Use Smoking status: Never Smokeless tobacco: Never Substance Use Topics Alcohol use: Not Currently Drug use: Never ALLERGIES: Patient has no known allergies. Review of Systems PHYSICAL EXAMINATION: 11/30/22 1443 11/30/22 1446 11/30/22 1447 Orthostatic BP: 102/70 110/80 106/80 BP Position: Supine Sitting Standing Orthostatic Pulse: 66 75 79 Weight: 104.8 kg (231 lb) Height: 160 cm (5' 3 ) Last 3 Encounter BP Readings: Date: BP: 09/08/2022 120/88 Last 3 Encounter Pulse Readings: Date: Pulse: 09/08/2022 72 Last 3 Encounter Wt Readings: Date: Wt: 09/08/2022 102.5 kg (226 lb) P (more content not included)... [facility] 11-30-2022 History of Presen t illness Narrative [facility] Cardiology PCP: No primary care provider on file. HPI: Christa Henderson is a 32 year old female who is here today for for a follow-up visit. The patient has a history of a cardiomyopathy which is presumed to be . The patient had problems with shortness of breath immediately after delivering her second child. She had moderate bilateral pleural effusions. A chest CT scan did not show evidence for pulmonary embolism. An echocardiogram demonstrated an ejection fraction of 40% with mild concentric left ventricular hypertrophy and normal valve function. The patient was placed on afterload reduction with losartan and also on beta-maria d therapy with carvedilol. A follow-up echocardiogram November 17, 2022 which showed an ejection fraction of 42%. However the visual assessment was thought to be more in the 45 to 50% range. Currently the patient feels fine. She denies any problems with chest pain, pressure, or discomfort. She denies orthopnea, PND, shortness of breath at rest, or dyspnea on exertion. She denies palpitations, lightheadedness, presyncope, or syncope. Prior history: Overview Notes of Problems Addressed This Visit Cardiovascular PVC's (premature ventricular contractions) Relevant Orders ECG COMPLETE cardiomyopathy - Primary Relevant Medications carvedilol (COREG) 25 mg tablet Chronic systolic (congestive) heart failure (HCC) Relevant Medications carvedilol (COREG) 25 mg tablet CURRENT MEDICATIONS: Current Outpatient Medications Medication Sig carvedilol (COREG) 25 mg tablet Take 1 tablet by mouth two times a day with meals. escitalopram oxalate (LEXAPRO) 10 mg tablet Take 10 mg by mouth once daily. iv contrast (will be provided with radiology test) CTA Coronary. No IV access, insert saline lock prior to the sedation, infusion, injection for imaging exam. Discontinue saline lock post exam. If Pt. has a central line or IVAD, may access for administration according to line specific nursing protocol. Once exam is complete flush line and de-access according to line specific nursing protocol in the CT contrast administration guidelines link. losartan (COZAAR) 25 mg tablet Take 0.5 tablets by mouth once daily. losartan (COZAAR) 25 mg tablet Take 1 tablet by mouth once daily. metFORMIN (GLUCOPHAGE) 500 mg tablet Take 500 mg by mouth twice daily with meals. metoprolol tartrate, short acting, (LOPRESSOR) 50 mg tablet Take one 50 mg tablet the evening prior to the CTA examination, take another 50 mg tablet the morning of the CTA examination. nitroglycerin sublingual (NITROQUICK) 0.3 mg SL tablet Dissolve 1 tablet under the tongue one time only for 1 dose. To be administered in Radiology for CTA exam nitroglycerin sublingual (NITROQUICK) 0.3 mg SL tablet Dissolve 1 tablet under the tongue one time only for 1 dose. To be administered in Radiology for CTA exam omeprazole (PRILOSEC) 20 mg capsule Take 20 mg by mouth once daily. Current Facility-Administered Medications Medication Dose Route Frequency perflutren lipid microspheres 1.3 mL in NaCl (PF) 0.9% 10 mL injection (DEFINITY) INTRAVENOUS DIRECTED PRN sodium chloride 0.9 % (flush) 10 mL (BD POSIFLUSH) 10 mL INTRAVENOUS DIRECTED PRN PAST MEDICAL HISTORY Diagnosis Date Acute systolic CHF (congestive heart failure) (HCC) After childbirth with diagnosis of cardiomyopathy Anemia Chronic systolic (congestive) heart failure (HCC) GERD (gastroesophageal reflux disease) H/O echocardiogram 08/16/2022 EF 40%, mild concentric LVH, normal valvular function H/O echocardiogram 11/17/2022 EF 42 5%, visual EF 45-50%, no significant valvular abnormalities Insulin resistance Pleural effusion 07/2022 Moderate bilateral pleural effusions cardiomyopathy Preeclampsia 07/2022 PVC's (premature ventricular contractions) Seasonal allergies PAST SURGICAL HISTORY Procedure Laterality Date ABSCESS DRAIN Left Thigh SNGL x 2 TOOTH EXTRACTION [place] FAMILY HISTORY Problem Relation Age of Onset Breast Cancer Mother SOCIAL HISTORY: Social History Tobacco Use Smoking status: Never Smokeless tobacco: Never Substance Use Topics Alcohol use: Not Currently Drug use: Never ALLERGIES: Patient has no known allergies. Review of Systems PHYSICAL EXAMINATION: 11/30/22 1443 11/30/22 1446 11/30/22 144 Orthostatic BP: 102/70 110/80 106/80 BP Position: Supine Sitting Standing Orthostatic Pulse: 66 75 79 Weight: 104.8 kg (231 lb) Height: 160 cm (5' 3 ) Last 3 Encounter BP Readings: Date: BP: 09/08/2022 120/88 Last 3 Encounter Pulse Readings: Date: Pulse: 09/08/2022 72 Last 3 Encounter Wt Readings: Date: Wt: 09/08/2022 102.5 kg (226 lb) Physical Exam Vitals reviewed. Constitutional: Appearance: Normal appearance. She is obese. Neck: Vascular: No carotid bruit or JVD. Cardiovascular: Rate and Rhythm: Normal rate and regular rhythm. Pulses: Carotid pulses are 2+ on the right side and 2+ on the left side. Heart sounds: Normal heart sounds. No murmur heard. No systolic murmur is present. No diastolic murmur is present. No friction rub. No gallop. No S3 or S4 sounds. Pulmonary: Effort: No respiratory distress. Breath sounds: Normal breath sounds. No stridor. No wheezing, rhonchi or rales. Chest: Chest wall: No tenderness. Abdominal: General: Abdomen is flat. Bowel sounds are normal. There is no distension. Palpations: Abdomen is soft. Tenderness: There is no abdominal tenderness. There is no guarding. Musculoskeletal: Right lower leg: No edema. Left lower leg: No edema. Skin: Findings: No rash. Neurological: Mental Status: She is alert. LABS: DIAGNOSTIC TEST RESULTS: Recent Results (from the past 24 hour(s)) EKG Collection Time: 11/30/22 2:42 PM Result Value Ref Range Ventricular Rate 66 BPM Atrial Rate 66 BPM P-R Interval 136 ms QRS Duration 84 ms QT Interval 406 ms QTC Calculation (Bazett) 425 ms Calculated P [place] 59 degrees Calculated R [place] 37 degrees Calculated T [place] 52 degrees Narrative NAME : CHRISTA HENDERSON PID : [id number] : 1990 Gender : Female Race : ORD : Procedure Date : Nov 30 2022 14:42:47 Edit Date : Nov 30 2022 14:53:31 Diagnosis: Normal sinus rhythm EKG during Coreg 12.5 mg po q12 hrs Normal ECG When compared with ECG of 08-SEP-2022 14:58, Nonspecific T wave abnormality no longer evident in Inferior leads T wave inversion no longer evident in Lateral leads Confirmed by VINCE LAURA MD ([id number]) on 11/30/2022 2:53:27 PM Test Reason : Location : 201 : [facility] Overread By : VINCE LAURA MD Edited By : VINCE LAURA MD Referred By : , Acquired by : Alex fontenot Normal sinus rhythm EKG during Coreg 12.5 mg po q12 hrs Normal ECG When compared with ECG of 08-SEP-2022 14:58, Nonspecific T wave abnormality no longer evident in Inferior leads T wave inversion no longer evident in Lateral leads Confirmed by VINCE LAURA MD ([id number]) on 11/30/2022 2:53:27 PM ASSESSMENT/PLAN: 1. cardiomyopathy - ICD9: 674.54, ICD10: O90.3 (primary diagnosis) The patient has a cardiomyopathy which is presumed to be . We have an EKG from [facility] that shows some T wave inversions and some mild ST elevation in the inferior leads. Do not know if her cardiac enzymes were elevated. It is possible that this could be on the basis of a myocarditis. Her echocardiogram does not suggest regional wall motion abnormalities. We are not planning upward titration of medications for LV dysfunction. Currently she is on carvedilol 12.5 mg twice daily and losartan 25 mg once daily. I have explained to the patient that we do not want her weak heart to have to work against a high pressure. We would like to have her systolic pressure in a 100-110 mmHg range. If it is in a 90-100 mm range and she feels fine, then that is also satisfactory. We increased carvedilol from 12.5 up to 25 mg twice daily today. She will return in 2 weeks time to have orthostatic vital signs performed. We may try further upward titration of the LV dysfunction medications over time. We will asked the patient to have a CT angiogram of her heart performed. It is highly unlikely that she would have atherosclerosis at her age. However it is possible that she could have a coronary artery anomaly. We have also asked that the patient have a cardiac MRI scan performed to evaluate for cardiomyopathy. We will also give us another measure of her LV function. Currently this test is scheduled in February. By then we hope to have her on maximal medical therapy for several months. The patient has questions regarding her activity levels. I have explained to her that the walking is fine. Even the weight lifting (low weights and higher repetitions) should be okay for her. We discussed possibly walking 30 up to 60 minutes a day 5 days/week. She is also complaining of being very sleepy during the daytime and having trouble awakening for her alarm clock. This probably has more to do with having 2 young children at home and working full-time as opposed to her medications or the cardiomyopathy. 2. PVC's (premature ventricular contractions) - ICD9: 427.69, ICD10: I49.3 The patient is not complaining of palpitations. Her EKG today does not show any ventricular ectopy. As above the carvedilol is being increased from 12.5 up to 25 mg twice daily. - ECG COMPLETE 3. Chronic systolic (congestive) heart failure (HCC) - ICD9: 428.22, 428.0, ICD10: I50.22 Currently the patient does not have any congestive heart failure symptoms. As above, we are increasing medications for LV dysfunction. documented in this encounter [facility] 09-14-2022 Note HNO ID: [id number] Author: Felisa Camargo MA Service: ? Author Type: Help Desk Assistant Type: Progress Notes Filed: 09/14/2022 3:24 PM Note Text: Blood Pressure Check Reason for blood pressure check Ortho's after starting Losartan 12.5 mg QD Name and reviewed and verified with patient. Allergies reviewed and verified with patient. Current Outpatient Medications Medication Sig escitalopram oxalate (LEXAPRO) 10 mg tablet Take 10 mg by mouth once daily. omeprazole (PRILOSEC) 20 mg capsule Take 20 mg by mouth once daily. metFORMIN (GLUCOPHAGE) 500 mg tablet Take 500 mg by mouth twice daily with meals. carvedilol (COREG) 12.5 mg tablet Take 1 tablet by mouth twice daily with meals. losartan (COZAAR) 25 mg tablet Take 0.5 tablets by mouth once daily. Current Facility-Administered Medications Medication Dose Route Frequency perflutren lipid microspheres 1.3 mL in NaCl (PF) 0.9% 10 mL injection (DEFINITY) INTRAVENOUS DIRECTED PRN sodium chloride 0.9 % (flush) 10 mL (BD POSIFLUSH) 10 mL INTRAVENOUS DIRECTED PRN Patient is taking medication as prescribed Yes Took medication today Yes Experiencing side effects No Blood Pressure at last office visit: 120/88 Blood Pressure today: 110/74 Physician notified of blood pressure readings Felisa Camargo MA [facility] 09-08-2022 Note HNO ID: [id number] Author: Susan Epps, DENNISE.EXTRUSION DIE COORDINATOR Service: ? Author Type: Nurse Practitioner Type: Progress Notes Filed: 09/08/2022 3:32 PM Note Text: [facility] No primary care provider on file. SUBJECTIVE: Christa Henderson is a 31 year old female who is here today for follow up visit. Recently gave 08/16/2022 to her second child. After she delivered she went into pulmonary edema. The patient was noted to have moderate bilateral pleural effusions. She was treated with Lasix. She had an echocardiogram performed showing EF declined to 40%. The patient was started on carvedilol 12.5 mg twice daily. She is here to establish with cardiology. Since that time, she feels well. She denies chest pain, shortness breath, palpitations, PND, orthopnea, syncope, near-syncope, or edema. PAST MEDICAL HISTORY Diagnosis Date Acute systolic CHF (congestive heart failure) (HCC) After childbirth with diagnosis of cardiomyopathy Anemia GERD (gastroesophageal reflux disease) H/O echocardiogram 08/16/2022 EF 40%, mild concentric LVH, normal valvular function Insulin resistance Pleural effusion 07/2022 Moderate bilateral pleural effusions cardiomyopathy Preeclampsia 07/2022 PVC's (premature ventricular contractions) Seasonal allergies PAST SURGICAL HISTORY Procedure Laterality Date ABSCESS DRAIN Left Thigh SNGL x 2 TOOTH EXTRACTION [place] FAMILY HISTORY Problem Relation Age of Onset Breast Cancer Mother SOCIAL HISTORY: Social History Tobacco Use Smoking status: Never Smokeless tobacco: Never Substance Use Topics Alcohol use: Not Currently Drug use: Never ALLERGIES: Patient has no allergy information on record. CURRENT MEDICATIONS: No current outpatient medications on file. No current facility-administered medications for this visit. Review of Systems Constitutional: Negative for activity change and fever. Respiratory: Negative for apnea, cough, chest tightness, shortness of breath, wheezing and stridor. Cardiovascular: Negative for chest pain, palpitations and leg swelling. Gastrointestinal: Negative for abdominal distention, diarrhea and vomiting. Musculoskeletal: Negative for joint swelling, neck pain and neck stiffness. Skin: Negative for color change, pallor and rash. Neurological: Negative for dizziness, syncope, weakness, light-headedness and numbness. Hematological: Does not bruise/bleed easily. Psychiatric/Behavioral: Negative for agitation, behavioral problems and confusion. The patient is not nervous/anxious. All other systems reviewed and are negative. PHYSICAL EXAMINATION: There were no vitals filed for this visit. No data found for this vital: BP No data found for this vital: Pulse No data found for this vital: Wt Physical Exam Vitals and nursing note reviewed. Constitutional: General: She is not in acute distress. Appearance: Normal appearance. She is obese. She is not toxic-appearing. HENT: Head: Normocephalic and atraumatic. Nose: Nose normal. Mouth/Throat: Mouth: Mucous membranes are moist. Neck: Vascular: No carotid bruit. Cardiovascular: Rate and Rhythm: Normal rate and regular rhythm. Pulses: Normal pulses. Heart sounds: Normal heart sounds. No murmur heard. No friction rub. No gallop. Pulmonary: Effort: Pulmonary effort is normal. No respiratory distress. Breath sounds: Normal breath sounds. No stridor. No wheezing, rhonchi or rales. Chest: Chest wall: No tenderness. Abdominal: General: Abdomen is flat. There is no distension. Palpations: Abdomen is soft. There is no mass. Tenderness: There is no abdominal tenderness. Musculoskeletal: General: No swelling. Cervical back: Normal range of motion. No muscular tenderness. Right lower leg: No edema. Left lower leg: No edema. Skin: General: Skin is warm and dry. Capillary Refill: Capillary refill takes less than 2 seconds. Coloration: Skin is not jaundiced or pale. Findings: No bruising or rash. Neurological: General: No focal deficit present. Mental Status: She is alert and oriented to person, place, and time. Mental status is at baseline. Motor: No weakness. Gait: Gait normal. Psychiatric: Mood and Affect: Mood normal. Behavior: Behavior normal. Thought Content: Thought content normal. Judgment: Judgment normal. Diagnostic results: EKG: Sinus rhythm, 72 beats minute, nonspecific T wave abnormality ASSESSMENT/PLAN: 1. cardiomyopathy - ICD9: 674.54, ICD10: O90.3 Patient has had documented cardiomyopathy. Echocardiogram performed 08/16/2022 showed EF 40% with mild concentric LVH and normal LV systolic function. The patient was on Coreg 12.5 mg twice daily until 2 days ago when she ran out. We will resume Coreg 12.5 mg twice daily. We will start losartan 12.5 mg daily. BMP and Ortho's in 1 week. Plan medication titration with reevaluat (more content not included)... [facility] 09-08-2022 History of Presen t illness Narrative [facility] No primary care provider on file. SUBJECTIVE: Christa Henderson is a 31 year old female who is here today for follow up visit. Recently gave 08/16/2022 to her second child. After she delivered she went into pulmonary edema. The patient was noted to have moderate bilateral pleural effusions. She was treated with Lasix. She had an echocardiogram performed showing EF declined to 40%. The patient was started on carvedilol 12.5 mg twice daily. She is here to establish with cardiology. Since that time, she feels well. She denies chest pain, shortness breath, palpitations, PND, orthopnea, syncope, near-syncope, or edema. PAST MEDICAL HISTORY Diagnosis Date Acute systolic CHF (congestive heart failure) (HCC) After childbirth with diagnosis of cardiomyopathy Anemia GERD (gastroesophageal reflux disease) H/O echocardiogram 08/16/2022 EF 40%, mild concentric LVH, normal valvular function Insulin resistance Pleural effusion 07/2022 Moderate bilateral pleural effusions cardiomyopathy Preeclampsia 07/2022 PVC's (premature ventricular contractions) Seasonal allergies PAST SURGICAL HISTORY Procedure Laterality Date ABSCESS DRAIN Left Thigh SNGL x 2 TOOTH EXTRACTION [place] FAMILY HISTORY Problem Relation Age of Onset Breast Cancer Mother SOCIAL HISTORY: Social History Tobacco Use Smoking status: Never Smokeless tobacco: Never Substance Use Topics Alcohol use: Not Currently Drug use: Never ALLERGIES: Patient has no allergy information on record. CURRENT MEDICATIONS: No current outpatient medications on file. No current facility-administered medications for this visit. Review of Systems Constitutional: Negative for activity change and fever. Respiratory: Negative for apnea, cough, chest tightness, shortness of breath, wheezing and stridor. Cardiovascular: Negative for chest pain, palpitations and leg swelling. Gastrointestinal: Negative for abdominal distention, diarrhea and vomiting. Musculoskeletal: Negative for joint swelling, neck pain and neck stiffness. Skin: Negative for color change, pallor and rash. Neurological: Negative for dizziness, syncope, weakness, light-headedness and numbness. Hematological: Does not bruise/bleed easily. Psychiatric/Behavioral: Negative for agitation, behavioral problems and confusion. The patient is not nervous/anxious. All other systems reviewed and are negative. PHYSICAL EXAMINATION: There were no vitals filed for this visit. No data found for this vital: BP No data found for this vital: Pulse No data found for this vital: Wt Physical Exam Vitals and nursing note reviewed. Constitutional: General: She is not in acute distress. Appearance: Normal appearance. She is obese. She is not toxic-appearing. HENT: Head: Normocephalic and atraumatic. Nose: Nose normal. Mouth/Throat: Mouth: Mucous membranes are moist. Neck: Vascular: No carotid bruit. Cardiovascular: Rate and Rhythm: Normal rate and regular rhythm. Pulses: Normal pulses. Heart sounds: Normal heart sounds. No murmur heard. No friction rub. No gallop. Pulmonary: Effort: Pulmonary effort is normal. No respiratory distress. Breath sounds: Normal breath sounds. No stridor. No wheezing, rhonchi or rales. Chest: Chest wall: No tenderness. Abdominal: General: Abdomen is flat. There is no distension. Palpations: Abdomen is soft. There is no mass. Tenderness: There is no abdominal tenderness. Musculoskeletal: General: No swelling. Cervical back: Normal range of motion. No muscular tenderness. Right lower leg: No edema. Left lower leg: No edema. Skin: General: Skin is warm and dry. Capillary Refill: Capillary refill takes less than 2 seconds. Coloration: Skin is not jaundiced or pale. Findings: No bruising or rash. Neurological: General: No focal deficit present. Mental Status: She is alert and oriented to person, place, and time. Mental status is at baseline. Motor: No weakness. Gait: Gait normal. Psychiatric: Mood and Affect: Mood normal. Behavior: Behavior normal. Thought Content: Thought content normal. Judgment: Judgment normal. Diagnostic results: EKG: Sinus rhythm, 72 beats minute, nonspecific T wave abnormality ASSESSMENT/PLAN: 1. cardiomyopathy - ICD9: 674.54, ICD10: O90.3 Patient has had documented cardiomyopathy. Echocardiogram performed 08/16/2022 showed EF 40% with mild concentric LVH and normal LV systolic function. The patient was on Coreg 12.5 mg twice daily until 2 days ago when she ran out. We will resume Coreg 12.5 mg twice daily. We will start losartan 12.5 mg daily. BMP and Ortho's in 1 week. Plan medication titration with reevaluation of LV function 90 days after initial diagnosis with hope of LV function improvement. 2. Acute systolic CHF (congestive heart failure) (HCC) - ICD9: 428.21, 428.0, ICD10: I50.21 At heart failure after childbirth. Resolved. He is to call with any signs of heart failure. 3. PVC's (premature ventricular contractions) - ICD9: 427.69, ICD10: I49.3 Patient Has had documentation of PVCs. She has been on Coreg 12.5 mg twice daily until 2 days ago. We will resume Coreg 12 and half milligrams twice daily. EKG today does not show any PVCs. She is not complaining of palpitations. She will call if symptoms change or worsen. 4. Pleural effusion - ICD9: 511.9, ICD10: J90 Bilateral pleural effusions at the time of acute heart failure from cardiomyopathy. Resolved. [facility] [facility] Miscellaneous Notes Pt called and notified per susan Have the patient come in and see me on 09/08/2022 at 3 PM. Let her know I looked at her stuff, EF 40%, normal is 50% or higher. We will treat her with medications and reevaluate her function in 90 days. Pt agreeable Have the patient come in and see me on 09/08/2022 at 3 PM. Let her know I looked at her stuff, EF 40%, normal is 50% or higher. We will treat her with medications and reevaluate her function in 90 days. documented in this encounter [facility] 01-26-2022 Note ORIGINAL EXAMINATION: COMPLETE ABDOMINAL ULTRASOUND 01/26/2022 9:09 am COMPARISON: None. HISTORY: ORDERING SYSTEM PROVIDED HISTORY: Reason for Exam: PAIN, NAUSEA, 6 WEEKS Epigastric/periumbilical pain. FINDINGS: LIVER: Enlarged measuring 19.9 cm. Coarsened, increased echogenicity and mildly heterogeneous echotexture. No focal lesion. BILIARY SYSTEM: Gallbladder is unremarkable without evidence of pericholecystic fluid, wall thickening or stones. No tenderness on exam. Common bile duct is within normal limits measuring 2.7 mm. KIDNEYS: The right kidney measures 11.9 x 6.9 x 5.5 cm. The left kidney measures 10.0 x 6.0 x 5.7 cm. No pelviectasis. No echogenic, shadowing stones. No focal lesion. PANCREAS: Visualized portions appear normal. SPLEEN: Normal. IVC: Normal AORTA: Normal OTHER: At the periumbilical region there is an abdominal wall defect which measures 2.5 cm. The hernia measures 4.2 x 3.5 x 2.4 cm and contains hypoechoic fluid and mildly heterogeneous, echogenic, vascular material, possibly reflecting a combination of omental fat and bowel. No intra-abdominal ascites. IMPRESSION: 4.2 cm periumbilical hernia which appears to contain a combination of fluid, mesenteric fat and bowel. If clinically indicated an MRI of the abdomen without contrast can be considered to confirm presence of bowel. MRI contrast and CT are not advised given status. Hepatomegaly. Hepatic steatosis versus another chronic diffuse hepatocellular process. No focal lesion. I have personally reviewed the images of this examination and agree with the resident's findings and interpretation. Interpreted by: Henry Llanos MD Preliminary Report By: Brandy Sneed Electronically signed By Henry Llanos MD Dictated Date: 01/26/2022 9:15:13 AM Prelim Date: 01/26/2022 9:26:57 AM Sign Date: 01/26/2022 9:35:43 AM Ordering Provider: JOLENE ROGEL [facility] 01-26-2022 Note ORIGINAL EXAMINATION: COMPLETE ABDOMINAL ULTRASOUND 01/26/2022 9:09 am COMPARISON: None. HISTORY: ORDERING SYSTEM PROVIDED HISTORY: Reason for Exam: PAIN, NAUSEA, 6 WEEKS Epigastric/periumbilical pain. FINDINGS: LIVER: Enlarged measuring 19.9 cm. Coarsened, increased echogenicity and mildly heterogeneous echotexture. No focal lesion. BILIARY SYSTEM: Gallbladder is unremarkable without evidence of pericholecystic fluid, wall thickening or stones. No tenderness on exam. Common bile duct is within normal limits measuring 2.7 mm. KIDNEYS: The right kidney measures 11.9 x 6.9 x 5.5 cm. The left kidney measures 10.0 x 6.0 x 5.7 cm. No pelviectasis. No echogenic, shadowing stones. No focal lesion. PANCREAS: Visualized portions appear normal. SPLEEN: Normal. IVC: Normal AORTA: Normal OTHER: At the periumbilical region there is an abdominal wall defect which measures 2.5 cm. The hernia measures 4.2 x 3.5 x 2.4 cm and contains hypoechoic fluid and mildly heterogeneous, echogenic, vascular material, possibly reflecting a combination of omental fat and bowel. No intra-abdominal ascites. IMPRESSION: 4.2 cm periumbilical hernia which appears to contain a combination of fluid, mesenteric fat and bowel. If clinically indicated an MRI of the abdomen without contrast can be considered to confirm presence of bowel. MRI contrast and CT are not advised given status. Hepatomegaly. Hepatic steatosis versus another chronic diffuse hepatocellular process. No focal lesion. I have personally reviewed the images of this examination and agree with the resident's findings and interpretation. Interpreted by: Henry Llanos MD Preliminary Report By: Brandy Sneed Electronically signed By Henry Llanos MD Dictated Date: 01/26/2022 9:15:13 AM Prelim Date: 01/26/2022 9:26:57 AM Sign Date: 01/26/2022 9:35:43 AM Ordering Provider: JOLENE ROGEL [facility] 02-23-2021 Note HNO ID: [id number] Author: Jorge Cadena PA-C Service: ? Author Type: Physician Operations Forester Type: Progress Notes Filed: 02/23/2021 6:51 PM Note Text: Telemedicine Visit - Distance Health Virtual Visit Note Patient seen on [employer] Online platform. Location of patient: [place] History of Present Illness Christa Henderson is a 30 year old old female with a history of UTI symptoms for 14 days. Was seen by PCP UA showed blood and bacteria, unclear if culture sent. Pt put on ceftin per pt for 7 days Symptoms never fully subsided. Pt has hx of pyelonephritis. Urinary symptoms ROS: Positive for Dysuria, Increase in frequency of urination, Urgency, Sense of incomplete void and Back/Flank pain, Negative for Fevers Chance of : No Last intercourse: denies Any self-treatment attempted: see above Number of previous UTI's in last 6 months:1 Number of previous UTI's in last 12 months: 1 Aggravating Factors: denies No past medical history on file. No past surgical history on file. No family history on file. Social History Tobacco Use - Smoking status: Not on file - Smokeless tobacco: Not on file Substance Use Topics - Alcohol use: Not on file - Drug use: Not on file ALLERGIES Not on File No current outpatient medications on file. No current facility-administered medications for this visit. Video Exam (Examination performed via Video enabled technology) General Appearance: 30 year old yo female in NAD; not ill or toxic appearing Abdomen: non-tender by self palpation CVA Tenderness: non-tender bilaterally by self palpation ASSESSMENT/PLAN: 1. Acute cystitis without hematuria - ICD9: 595.0, ICD10: N30.00 Advised in person care tonight with UA/ urine culture sent. Pt verbalized understanding Jorge Cadena PA-C If you let us know who your primary care provider is, we will send them a notification of today?s visit through our electronic medical records system. Since not all providers have access to our notifications, we strongly encourage you to share the following record of today?s visit with your primary care provider at your next visit. This will help in providing you the best care. If you do not have an established Primary Care physician and would like to continue care with a [facility] Virtual Primary Care physician, please ask your provider to place a Establish Primary Care order. Use Solvate to manage your care, wherever you are, 13/09, on your mobile device or computer. Solvate connects you to [facility] so you can access all your health information in one place and also schedule and request virtual appointments with primary care providers. [facility] Evaluation + Plan note No data available for this section [facility] documented in this encounter [facility] note* Diagnosis cardiomyopathy- Primary Peripartum cardiomyopathy, PVC's (premature ventricular contractions) Other premature beats Chronic systolic (congestive) heart failure (HCC) documented in this encounter [facility] note* Diagnosis cardiomyopathy- Primary Peripartum cardiomyopathy, Lipid screening Screening for lipoid disorders documented in this encounter [facility] note* Diagnosis Cardiomyopathy, unspecified type (HCC)- Primary cardiomyopathy Peripartum cardiomyopathy, documented in this encounter [facility] note* Diagnosis Cardiomyopathy, unspecified type (HCC)- Primary PVC's (premature ventricular contractions) Other premature beats Chronic systolic congestive heart failure (HCC) Chronic systolic heart failure cardiomyopathy Peripartum cardiomyopathy, [facility]* Diagnosis Chronic systolic congestive heart failure (HCC)- Primary Chronic systolic heart failure cardiomyopathy Peripartum cardiomyopathy, PVC's (premature ventricular contractions) Other premature beats documented in this encounter [facility] note* Diagnosis cardiomyopathy Peripartum cardiomyopathy, documented in this encounter [facility] note* Diagnosis H/O CT scan- Primary Other specified personal history presenting hazards to health documented in this encounter [facility] note* Diagnosis cardiomyopathy Peripartum cardiomyopathy, documented in this encounter [facility] note* Diagnosis cardiomyopathy Peripartum cardiomyopathy, [facility] Discharge instructions No data available for this section [facility] Reason for referral (narrative)* Outpatient Procedure (Routine) - Authorized Specialty Diagnoses / Procedures Referred By Contac t Referred To Contact [facility] Diagnoses cardiomyopathy PVC's (premature ventricular contractions) Procedures ECHO ECHO TTHRC R-T 2D W/WOM-MODE COMPL SPEC&COLR D Susan Epps, DIRECTOR OF TRANSPORTATION.EXTRUSION DIE COORDINATOR [address] [address] [facility] [address] [place] [address] Referral ID Status Reason Start Date Expiration Date Visits Requested Visits Authorized [id number] Authorized Auto-Generat ed Referral 11/16/2022 09/08/2023 1 1 * Outpatient Procedure (Routine) - Closed Specialty Diagnoses / Procedures Referred By Contac t Referred To Contact [facility] Diagnoses PVC's (premature ventricular contractions) Procedures ECG COMPLETE ECG ROUTINE ECG W/LEAST 12 LDS W/I&R Susan Epps, DIRECTOR OF TRANSPORTATION.EXTRUSION DIE COORDINATOR [address] [address] Referral ID Status Reason Start Date Expiration Date V isits Requested Visits Authorized [id number] Closed Auto-Generate d Referral 09/08/2022 09/08/2023 1 1 Electronically signed by Susan Epps DIRECTOR OF TRANSPORTATION.EXTRUSION DIE COORDINATOR at 09/08/2022 8:12 AM EDT [facility] for referral (narrative)* Outpatient Procedure (Routine) - Closed Specialty Diagnoses / Procedures Referred By Contac t Referred To Contact [facility] Diagnoses PVC's (premature ventricular contractions) Procedures ECG COMPLETE ECG ROUTINE ECG W/LEAST 12 LDS W/I&R Vince Laura MD [address] [place] [address] [facility] [address] [place] [address] Referral ID Status Reason Start Date Expiration Date V isits Requested Visits Authorized [id number] Closed Auto-Generate d Referral 11/26/2022 11/26/2023 1 1 [facility] Procedure (Routine) - Pending Review Specialty Diagnoses / Procedures Referred By Rimma rand Referred [facility] Diagnoses Cardiomyopathy, unspecified type (HCC) PVC's (premature ventricular contractions) Procedures ECG COMPLETE ECG ROUTINE ECG W/LEAST 12 LDS W/I&R Susan Epps, DIRECTOR OF TRANSPORTATION.EXTRUSION DIE COORDINATOR [address] [facility] [address] [place] [address] [facility] [address] [place] [address] Referral ID Status Reason Start Date Expiration Date Visits Requested Visits Authorized [id number] Pending Review Auto-Generat ed Referral 3 12/17/2023 1 1 Electronically signed by Susan Epps DIRECTOR OF TRANSPORTATION.EXTRUSION DIE COORDINATOR at 12/17/2022 8:25 AM EDT [facility] Summary Purpose Family History No Family History Records FoundNo Family History Records FoundNo Family History Records FoundNo Family History Records FoundNo Family History Records FoundNo Family History Records Found Advance Directives No Advanced Directives Records FoundNo Advanced Directives Records FoundNo Advanced Directives Records FoundNo Advanced Directives Records FoundNo Advanced Directives Records FoundNo Advanced Directives Records Found Reason for Referral Specialty Diagnoses / Procedures Referred By Rimma rand Referred To Contact [facility] Diagnoses cardiomyopathy Procedures CTA CORONARY W IVCON CTA HRT CORNRY ART/BYPASS GRFTS CONTRST 3D POST Susan Epps, DIRECTOR OF TRANSPORTATION.EXTRUSION DIE COORDINATOR [address] [facility] [address] [place] [address] [place] [address] Referral ID Status Reason Start Date Expiration Date V isits Requested Visits Authorized [id number] Closed Auto-Generate d Referral 11/29/2022 12/29/2023 1 1 Additional Source Comments INFORMATION SOURCE (unrecogn ized section and content) DATE CREATED AUTHOR AUTHOR'S ORGANIZ ATION 05/14/2021 [facility] DATE CREATED AUTHOR AUTHOR'S ORGANIZ ATION 09/05/2022 [facility] DATE CREATED AUTHOR AUTHOR'S ORGANIZ ATION 01/04/2023 [facility] ([place] DATE CREATED AUTHOR AUTHOR'S ORGANIZ ATION 01/25/2023 [facility] DATE CREATED AUTHOR AUTHOR'S ORGANIZ ATION 02/28/2023 [facility] Care Team (unrecognized sect ion and content) Care Team Personnel Name: SHONDA OCAMPO JR, MD Position: P4 Physician - General Surgery Member Role: Surgeon Address: Address: [address] [place] [address] [address] [place] [address]- Name: JOLENE ROGEL DO Position: Physician Member Role: Primary Care Physician Address: Address: [facility] [address] [facility] [address] [place] [address]- Care Team Related Persons Name: CHUCK HEDNERSON Name: DEBORAH HENDERSON Address: Home [address] [place] [address] Source Comments (unrecognize d section and content) In the event this informatio n is protected by the Federal Confidentiality of Alcohol and Drug Abuse Patient Records regulations: The Federal rules restrict any use of the information to criminally investigate or prosecute any alcohol or drug abuse patient.[facility] the event this information is protected by the Federal Confidentiality of Alcohol and Drug Abuse Patient Records regulations: The Federal rules restrict any use of the information to criminally investigate or prosecute any alcohol or drug abuse patient.[facility] the event this information is protected by the Federal Confidentiality of Alcohol and Drug Abuse Patient Records regulations: The Federal rules restrict any use of the information to criminally investigate or prosecute any alcohol or drug abuse patient.[facility] the event this information is protected by the Federal Confidentiality of Alcohol and Drug Abuse Patient Records regulations: The Federal rules restrict any use of the information to criminally investigate or prosecute any alcohol or drug abuse patient.[facility] the event this information is protected by the Federal Confidentiality of Alcohol and Drug Abuse Patient Records regulations: The Federal rules restrict any use of the information to criminally investigate or prosecute any alcohol or drug abuse patient.[facility] the event this information is protected by the Federal Confidentiality of Alcohol and Drug Abuse Patient Records regulations: The Federal rules restrict any use of the information to criminally investigate or prosecute any alcohol or drug abuse patient.[facility] the event this information is protected by the Federal Confidentiality of Alcohol and Drug Abuse Patient Records regulations: The Federal rules restrict any use of the information to criminally investigate or prosecute any alcohol or drug abuse patient.[facility] the event this information is protected by the Federal Confidentiality of Alcohol and Drug Abuse Patient Records regulations: The Federal rules restrict any use of the information to criminally investigate or prosecute any alcohol or drug abuse patient.[facility] the event this information is protected by the Federal Confidentiality of Alcohol and Drug Abuse Patient Records regulations: The Federal rules restrict any use of the information to criminally investigate or prosecute any alcohol or drug abuse patient.[facility] the event this information is protected by the Federal Confidentiality of Alcohol and Drug Abuse Patient Records regulations: The Federal rules restrict any use of the information to criminally investigate or prosecute any alcohol or drug abuse patient.[facility] Hospital[facility] the event this information is protected by the Federal Confidentiality of Alcohol and Drug Abuse Patient Records regulations: The Federal rules restrict any use of the information to criminally investigate or prosecute any alcohol or drug abuse patient.[facility] Hospital[facility] the event this information is protected by the Federal Confidentiality of Alcohol and Drug Abuse Patient Records regulations: The Federal rules restrict any use of the information to criminally investigate or prosecute any alcohol or drug abuse patient.[facility] Hospital[facility] the event this information is protected by the Federal Confidentiality of Alcohol and Drug Abuse Patient Records regulations: The Federal rules restrict any use of the information to criminally investigate or prosecute any alcohol or drug abuse patient.[facility] Hospital[facility] the event this information is protected by the Federal Confidentiality of Alcohol and Drug Abuse Patient Records regulations: The Federal rules restrict any use of the information to criminally investigate or prosecute any alcohol or drug abuse patient.[facility] Hospital[facility] the event this information is protected by the Federal Confidentiality of Alcohol and Drug Abuse Patient Records regulations: The Federal rules restrict any use of the information to criminally investigate or prosecute any alcohol or drug abuse patient.[facility] Hospital[facility] the event this information is protected by the Federal Confidentiality of Alcohol and Drug Abuse Patient Records regulations: The Federal rules restrict any use of the information to criminally investigate or prosecute any alcohol or drug abuse patient.[facility] Hospital[facility] the event this information is protected by the Federal Confidentiality of Alcohol and Drug Abuse Patient Records regulations: The Federal rules restrict any use of the information to criminally investigate or prosecute any alcohol or drug abuse patient.[facility] Hospital[facility] the event this information is protected by the Federal Confidentiality of Alcohol and Drug Abuse Patient Records regulations: The Federal rules restrict any use of the information to criminally investigate or prosecute any alcohol or drug abuse patient.[facility] Hospital[facility] the event this information is protected by the Federal Confidentiality of Alcohol and Drug Abuse Patient Records regulations: The Federal rules restrict any use of the information to criminally investigate or prosecute any alcohol or drug abuse patient.[facility] Reason for Visit (unrecogniz ed section and content) Reason Comments New Patient Reason Onset Date Comments Refill Request 10/03/2022 Reason Comments Follow Up Reason Comments Orders Reason Comments Results Patient Update Reason Comments EKG EKG and Ortho's afte r increasing Coreg to 25 mg BID Reason Comments Blood Pressure Ortho's after increa sing Losartan to 25 mg BID Specialty Diagnoses / Procedures Referred By Contac t Referred To Contact [facility] Diagnoses cardiomyopathy Procedures CTA CORONARY W IVCON CTA HRT CORNRY ART/BYPASS GRFTS CONTRST 3D POST Susan Epps, DIRECTOR OF TRANSPORTATION.EXTRUSION DIE COORDINATOR [address] [facility] [address] [place] [address] [place] [address] Referral ID Status Reason Start Date Expiration Date V isits Requested Visits Authorized [id number] Closed Auto-Generate d Referral 11/29/2022 12/29/2023 1 1 Reason Onset Date Comments Refill Request 01/24/2023 Reason Onset Date Comments Refill Request 01/28/2023 Reason Onset Date Comments Refill Request 01/31/2023 Reason Onset Date Comments Refill Request 02/03/2023 Care Teams (unrecognized sec tion and content) Ticketing Agent Relationship Specialty Start Date End Date Jolene Rogel DO [address] [place], [place] [id number] PCP - General Internal Medicine 01/23/23 Ticketing Agent Relationship Specialty Start Date End Date Jolene Rogel DO [address] [address] PCP - General Internal Medicine 01/23/23 FOR RECORDS PERTAINING TO PATIENTS WHO ARE OR HAVE BEEN ENROLLED IN A CHEMICAL DEPENDENCY/SUBSTANCEABUSE PROGRAM, SOME INFORMATION MAY BE OMITTED. This clinical summary was aggregated from multiple sources. Caution should be exercised in using it in the provision of clinical care. This summary normalizes information from multiple sources, and as a consequence, information in this document may materially change the coding, format and clinical context of patient data. In addition, data may be omitted in some cases. CLINICAL DECISIONS SHOULD BE BASED ON THE PRIMARY CLINICAL RECORDS. [employer]vant [employer] [facility]. provides no warranty or guarantee of the accuracy or completeness of information in this document.
== END | disposition home or self-care (01) ==
PROVIDERS: PCP Student in an Organized Health Care Education/Training Program; Visit Provider Obstetrics & Gynecology
DX: N89.8 Other specified noninflammatory disorders of vagina (principal)
CPT/HCPCS: 87070; 87077; 87205